=== PATIENT | female | born 1945 | race Caucasian/White ===

== ENCOUNTER → 2016-11-24 | Outpatient (CLI) | payer OTHER ==
[~2016-11-24] MED LIST: AMT100 PO; CHOL2000 PO; CYAN3INJ IM; DICL1GEL12 TOP; DRGTP12 TD; DRGTP25 TD; DXY100 PO; FERR1TAB13 PO; GLC/500 PO; GLIP2.5T11 PO; HYDR-5688 PO; LEVO25TA PO; MRLP17X PO; POTA10CA28 PO; POTA99TA PO; PRED20TA PO; PRLSR20 PO; TRAM-10 PO
[2016-11-24 17:35] LABS: BASO % 0.3 %; BASO ABS # 0.02 K/uL (0-0.2); COMPLETE YES; EOS % 4.1 %; HEMATOCRIT 33.7 % (37-47); IG% 0.3 %; LYMPH ABS # 2.06 K/uL (1.2-3.4); MEAN CELL VOLUME 88.2 fL (80-100); MEAN CORPUSCULAR HEMOGLOBIN 27.7 pg (25-34); MEAN CORPUSCULAR HGB CONC 31.5 g/dl (32-36); MEAN PLATELET VOLUME 10.2 fL (7.4-10.4); MONO % 4.2 %; NEUT % 62.1 %; PLATELET COUNT 262 K/uL (130-400); RED BLOOD COUNT 3.82 M/uL (4.2-5.4); URINE APPEARANCE CLOUDY (CLEAR); URINE BILIRUBIN NEG (NEG); URINE COLOR YELLOW; URINE NITRITE POS (NEG); URINE PH 5.5 (4.5-7.5); UROBILINOGEN NEG (NEG); WHITE BLOOD COUNT 7.11 K/uL (4.8-10.8); ZZUR CULT IF INDIC CLEAN CATCH YES
[2016-11-24 17:40] LABS: MANUAL MICROSCOPIC REQUIRED? NO; REVIEW REQ? NO
--- NOTE | 2016-11-24 17:40 | DIAGNOSTIC IMAGING REPORT ---
TWO VIEW CHEST CLINICAL HISTORY: Thoracic back pain. FINDINGS: PA and lateral chest radiographs are compared to chest x-ray and chest CT dated 06/20/2013. The heart is enlarged. The pulmonary vasculature is noncongested. Chronic interstitial thickening is similar to previous. No airspace consolidation, large pleural effusion, or pneumothorax is seen. The skeletal structures are osteopenic. Degenerative change is noted in the thoracic spine. IMPRESSION: Cardiomegaly with no active disease in the chest. Electronically signed by: Lencho Jean M.D. 11/24/2016 5:39 PM Dictated Date/Time: 11/24/2016 5:37 PM
--- NOTE | 2016-11-24 17:43 | DIAGNOSTIC IMAGING REPORT ---
THORACIC SPINE 3 VIEWS ROUTINE HISTORY: Pain M54.9 Mid back pain COMPARISON: None. FINDINGS: There is no fracture. Mild compression deformity T6 considered nonacute radiographically. Degenerative disc change throughout. Moderate reactive osteophytic change throughout. Disc spaces are preserved. IMPRESSION: Subacute to acute compression deformity considered no more than 20% superior endplate of T6. Scoliosis. Considerable degenerative disc change throughout. The above report was generated using voice recognition software. It may contain grammatical, syntax or spelling errors. Electronically signed by: Roger Allen M.D. 11/24/2016 5:42 PM Dictated Date/Time: 11/24/2016 5:38 PM
[2016-11-24 17:57] LABS: ALT/SGPT 17 U/L (12-78); BLOOD UREA NITROGEN 23 mg/dl (7-18); BUN/CREATININE RATIO 15.1 (10-20); CALCIUM 9.5 mg/dl (8.5-10.1); CARBON DIOXIDE 31 mmol/L (21-32); CHLORIDE 103 mmol/L (98-107); GLUCOSE 91 mg/dl (70-99); POTASSIUM 3.8 mmol/L (3.5-5.1); SODIUM 140 mmol/L (136-145)
[2016-11-24 18:00] LABS: ALB/GLOB RATIO 0.9 (0.9-2); ALKALINE PHOSPHATASE 143 U/L (45-117); AST/SGOT 22 U/L (15-37)
[2016-11-25 06:37] LABS: ESTIMATED AVERAGE GLUCOSE 123 mg/dl; HA1C FLAG Normal (Normal)
== END | disposition home or self-care (01) ==
LOC: C.RAD 16:50
PROVIDERS: ATTEND Nurse Practitioner
DX: M54.9 Dorsalgia, unspecified (principal); D51.0 Vitamin B12 deficiency anemia due to intrinsic factor deficiency; I51.7 Cardiomegaly; E11.9 Type 2 diabetes mellitus without complications; D50.9 Iron deficiency anemia, unspecified; M41.9 Scoliosis, unspecified

== ENCOUNTER 2016-12-14 14:42 | Emergency (ER) | payer OTHER ==
[~2016-12-14] VITALS: Ht 170.2 cm; Wt 92.7 kg
[~2016-12-14 14:42] MED LIST changes: -CHOL2000 PO; -DICL1GEL12 TOP; -DRGTP12 TD; -DRGTP25 TD; -DXY100 PO; -FERR1TAB13 PO; -GLIP2.5T11 PO; -HYDR-5688 PO; -MRLP17X PO; -POTA99TA PO; -PRED20TA PO; -TRAM-10 PO
[2016-12-14 14:51] VITALS: TEMP 36.7
[2016-12-14 15:02] VITALS: Ht 170.2 cm; Wt 92.7 kg
[2016-12-14] MEDS ORDERED: SODIUM CHLORIDE 0.9% 1000ML 1,000 ML IV SCH (15:07)
[2016-12-14 15:21] LABS: BASO % 0.3 %; BASO ABS # 0.02 K/uL (0-0.2); COMPLETE YES; EOS % 9.1 %; HEMATOCRIT 34.2 % (37-47); IG% 0.2 %; LYMPH % 19.5 %; LYMPH ABS # 1.27 K/uL (1.2-3.4); MEAN CELL VOLUME 85.9 fL (80-100); MEAN CORPUSCULAR HEMOGLOBIN 27.1 pg (25-34); MEAN CORPUSCULAR HGB CONC 31.6 g/dl (32-36); MEAN PLATELET VOLUME 9.8 fL (7.4-10.4); MONO % 5.4 %; NEUT % 65.5 %; PLATELET COUNT 266 K/uL (130-400); RED BLOOD COUNT 3.98 M/uL (4.2-5.4)
[2016-12-14 15:29] LABS: PROTHROMBIN TIME (PATIENT) 10.8 SECONDS (9.0-12.0)
[2016-12-14 15:38] LABS: BLOOD UREA NITROGEN 14 mg/dl (7-18); BUN/CREATININE RATIO 10.7 (10-20); CALCIUM 9.3 mg/dl (8.5-10.1); CARBON DIOXIDE 31 mmol/L (21-32); CHLORIDE 102 mmol/L (98-107); GLUCOSE 129 mg/dl (70-99); POTASSIUM 3.5 mmol/L (3.5-5.1); SODIUM 138 mmol/L (136-145)
[2016-12-14] MEDS ORDERED: POTA99TA PO (15:43)
[2016-12-14] MEDS ORDERED: GLIP2.5T11 PO (15:43)
[2016-12-14] MEDS ORDERED: TRAM-10 PO (15:43)
[2016-12-14] MEDS ORDERED: AMT100 PO (15:43)
[2016-12-14] MEDS ORDERED: DICL1GEL12 TOP (15:43)
[2016-12-14] MEDS ORDERED: CHOL2000 PO (15:43)
[2016-12-14] MEDS ORDERED: FERR1TAB13 PO (15:43)
--- NOTE | 2016-12-14 15:55 | DIAGNOSTIC IMAGING REPORT ---
CT SCAN OF THE BRAIN WITHOUT IV CONTRAST CLINICAL HISTORY: Strokelike symptoms. COMPARISON STUDY: MRI of the brain dated 02/27/2011. TECHNIQUE: Unenhanced axial CT scan of the brain is performed from the vertex to the skull base. CT DOSE: 601.98 mGy.cm FINDINGS: Brain parenchyma: There are age-related involutional changes noting mild subcortical and periventricular microangiopathic change. There is a 9 mm focus of low-attenuation in the anterior limb of left internal capsule seen on image #13 consistent with an age indeterminant lacunar infarct. There is no hemorrhage, mass effect, or evidence of acute territorial ischemia by CT criteria. Galvin-white matter is preserved. No extra-axial fluid collection is seen. Ventricles, sulci, cisterns: Prominent secondary to involutional change. Intracranial vasculature: There is atherosclerotic calcification of the cavernous carotid arteries. Calvarium: Unremarkable. Sinuses and mastoids: The visualized paranasal sinuses are clear. The mastoid air cells are well pneumatized. Orbits: The bony orbits are grossly intact. IMPRESSION: 1. There is no hemorrhage, mass effect, or evidence of acute territorial ischemia by CT criteria. 2. There is a 9 mm age indeterminant lacunar infarct in the anterior limb of the left internal capsule. Electronically signed by: Lencho Jean M.D. 12/14/2016 3:53 PM Dictated Date/Time: 12/14/2016 3:51 PM
[2016-12-14 16:33] LABS: LYME DISEASE AB IGG POS (NEG); LYME DISEASE AB IGM EQUIVOCAL (NEG)
[2016-12-14] MEDS ORDERED: DOXYCYCLINE HYCLATE 100 MG CAP PO ONE (18:00)
[2016-12-14] MEDS ORDERED: PRED20TA PO (18:13)
[2016-12-14] MEDS ORDERED: DXY100 PO (18:13)
[2016-12-14] MEDS ORDERED: ARTIFICIAL TEARS OP OINT 3.5 GM TUBE OP ONE (18:15)
[2016-12-14 18:30] VITALS: BP 133/92; PULSE 97; O2SAT 97
--- NOTE | 2016-12-14 19:55 | EMERGENCY ROOM VISIT NOTE ---
History Report prepared by Richelle: Jesse Lopez Under the Supervision of: Dr. Gutierrez Fraga M.D. First contact with patient: 14:56 Chief Complaint: STROKE SYMPTOMS Stated Complaint: EYE/MOUTH DROOPING, EAR PAIN-SPOKE W/'S OFFICE History of Present Illness The patient is a 71 year old female who presents to the Emergency Room with complaints of worsening neurologic symptoms. Her symptoms include left sided facial droop, and resolved headache. The patient states that she noticed her symptoms last night when she was unable to close her left eye. She states that she noticed her facial droop today about 2 hours ago. She also complains of a tingling in her right arm which began last night. The patient has a history of chronic back pain, and feels that the tingling is related to this. Pt denies LOC , problems with speech, fevers, chills, visual changes, neck pain/stiffness, thunder clap or sudden onset of headache, carbon monoxide exposure, ear problems /hearing loss, sinus congestion/recent infection, chest pain, breathing difficulties, vomiting, abdominal pain, urinary symptoms, numbness, weakness, lymphadenopathy, rash, or other complaints. She has a history of MS and follows up with her PCP for this. The patient's daughter states that she did not notice facial droop yesterday, and didn't notice it today until she was told to look for it. The patient notes that she has a dog, but denies any known tick or bug bites. Source of History: patient Onset: Last night Position: other (left side) Quality: other (neurologic symptoms) Timing: worsening Associated Symptoms: + headache (resolved) Note: Additional symptoms: left sided facial droop, right arm tingling. Review of Systems See HPI for pertinent positives and negatives. A total of ten systems were reviewed and were otherwise negative. Past Medical & Surgical Medical Problems: (1) Anemia (2) Breast cancer (3) Diabetes (4) GERD (gastroesophageal reflux disease) (5) Hypothyroidism (6) Multiple sclerosis Surgical Problems: (1) S/P cholecystectomy (2) S/P hysterectomy (3) S/P mastectomy, bilateral Family History Diabetes mellitus Hypertension Kidney disease Kidney stones Social History Smoking Status: Never Smoker Alcohol Use: none Marital Status: Housing Status: lives with family Occupation Status: retired Current/Historical Medications Scheduled Amitriptyline HCl (Amitriptyline HCl), 100 MG PO HS Cholecalciferol (Vitamin D3), 1 CAP PO DAILY Doxycycline Hyclate (Doxycycline Hyclate), 100 MG PO BID Ferrous Sulfate (Kp Ferrous Sulfate), 1 TAB PO 3XWK Glipizide (Glipizide Er), 1 TAB PO DAILY Levothyroxine Sodium (Synthroid), 25 MCG PO DAILY Metformin Hcl (Glucophage), 500 MG PO BID Omeprazole (Prilosec), 20 MG PO DAILY Potassium (Potassium), 99 MG PO DAILY Prednisone (Prednisone), 0 PO DAILY Scheduled PRN Diclofenac Sodium (Topical) (Voltaren 1% Top Gel), 1 APPLN TOP UD PRN for Pain Tramadol (Ultram), 50-100 MG PO Q8H PRN for Pain Allergies Coded Allergies: Adhesives (Verified Allergy, Mild, 12/14/16) Aloe (Verified Allergy, Mild, 12/14/16) Aspirin (Verified Allergy, Mild, 12/14/16) Latex1 -Allergic Contact Dermititis (Verified Allergy, Unknown, RASH, 12/14) Physical Exam Vital Signs Date Time Temp Pulse Resp B/P (MAP) Pulse Ox O2 Delivery O2 Flow Rate FiO2 12/14/16 18:30 97 16 133/92 97 12/14/16 18:15 97 16 133/92 97 Room Air 12/14/16 17:43 99 16 171/96 99 Room Air 12/14/16 16:16 92 16 135/80 92 Room Air 12/14/16 15:55 99 16 131/81 94 Room Air 12/14/16 15:07 114 12/14/16 15:02 Room Air 12/14/16 14:51 36.7 122 16 135/82 97 Physical Exam GENERAL: Awake, alert, well appearing, no distress HENT: Normocephalic, atraumatic. TM's normal. Oropharynx unremarkable. EYES: PERRL. EOMI. Normal conjunctiva. Sclera non-icteric. NECK: Supple. No nuchal rigidity. FROM. No JVD or bruit. RESPIRATORY: CTA CARDIAC: RRR. No murmur. ABDOMEN: Soft, non distended. No tenderness to palpation. No rebound or guarding. No masses. RECTAL: Deferred. MUSCULOSKELETAL: Unremarkable. No edema. No discoloration. Gross motor strength symmetric. NEURO: Cranial nerves 2-12 grossly intact except for weakness of the left facial groove, including the forehead. Normal sensorium. No sensory or motor deficits noted. Speech normal. No pronator drift. SKIN: No rash or jaundice noted. LYMPH: No adenopathy. Medical Decision & Procedures ER Provider Diagnostic Interpretation: CT: Radiology results as stated below per my review and radiologist interpretation CT SCAN OF THE BRAIN WITHOUT IV CONTRAST FINDINGS: Brain parenchyma: There are age-related involutional changes noting mild subcortical and periventricular microangiopathic change. There is a 9 mm focus of low-attenuation in the anterior limb of left internal capsule seen on image #13 consistent with an age indeterminant lacunar infarct. There is no hemorrhage, mass effect, or evidence of acute territorial ischemia by CT criteria. Galvin-white matter is preserved. No extra-axial fluid collection is seen. Ventricles, sulci, cisterns: Prominent secondary to involutional change. Intracranial vasculature: There is atherosclerotic calcification of the cavernous carotid arteries. Calvarium: Unremarkable. Sinuses and mastoids: The visualized paranasal sinuses are clear. The mastoid air cells are well pneumatized. Orbits: The bony orbits are grossly intact. IMPRESSION: 1. There is no hemorrhage, mass effect, or evidence of acute territorial ischemia by CT criteria. 2. There is a 9 mm age indeterminant lacunar infarct in the anterior limb of the left internal capsule. Electronically signed by: Lencho Jean M.D. Laboratory Results 12/14/16 15:05 Red Blood Count 3.98, Mean Corpuscular Volume 85.9, Mean Corpuscular Hemoglobin 27.1, Mean Corpuscular Hemoglobin Concent 31.6, Mean Platelet Volume 9.8, Neutrophils (%) (Auto) 65.5, Lymphocytes (%) (Auto) 19.5, Monocytes (%) (Auto) 5.4, Eosinophils (%) (Auto) 9.1, Basophils (%) (Auto) 0.3, Neutrophils # (Auto) 4.26, Lymphocytes # (Auto) 1.27, Monocytes # (Auto) 0.35, Eosinophils # (Auto) 0.59, Basophils # (Auto) 0.02 12/14/16 15:05 Test 12/14/16 15:05 8/20/17 15:21 12/14/16 15:23 White Blood Count 6.50 K/uL (4.8-10.8) Red Blood Count 3.98 M/uL (4.2-5.4) Hemoglobin 10.8 g/dL (12.0-16.0) Hematocrit 34.2 % (37-47) Mean Corpuscular Volume 85.9 fL (80-100) Mean Corpuscular Hemoglobin 27.1 pg (25-34) Mean Corpuscular Hemoglobin Concent 31.6 g/dl (32-36) Platelet Count 266 K/uL (130-400) Mean Platelet Volume 9.8 fL (7.4-10.4) Neutrophils (%) (Auto) 65.5 % Lymphocytes (%) (Auto) 19.5 % Monocytes (%) (Auto) 5.4 % Eosinophils (%) (Auto) 9.1 % Basophils (%) (Auto) 0.3 % Neutrophils # (Auto) 4.26 K/uL (1.4-6.5) Lymphocytes # (Auto) 1.27 K/uL (1.2-3.4) Monocytes # (Auto) 0.35 K/uL (0.11-0.59) Eosinophils # (Auto) 0.59 K/uL (0-0.5) Basophils # (Auto) 0.02 K/uL (0-0.2) RDW Standard Deviation 47.4 fL (36.4-46.3) RDW Coefficient of Variation 15.2 % (11.5-14.5) Immature Granulocyte % (Auto) 0.2 % Immature Granulocyte # (Auto) 0.01 K/uL (0.00-0.02) Prothrombin Time 10.8 SECONDS (9.0-12.0) Prothromb Time International Ratio 1.0 (0.9-1.1) Activated Partial Thromboplast Time 26.8 SECONDS (21.0-31.0) Partial Thromboplastin Ratio 1.0 Anion Gap 5.0 mmol/L (3-11) Est Creatinine Clear Calc Drug Dose 45.7 ml/min Estimated GFR () 47.5 Estimated GFR (Non- 41.0 BUN/Creatinine Ratio 10.7 (10-20) Calcium Level 9.3 mg/dl (8.5-10.1) Total Creatine Kinase 57 U/L (26-192) Creatine Kinase MB < 0.5 ng/ml (0.5-3.6) Creatine Kinase MB Ratio (0-3.0) Troponin I < 0.015 ng/ml (0-0.045) Lyme Disease IgG Antibody POS (NEG) Bedside Prothrombin Time INR 1.1 (0.9-1.1) Bedside Glucose 120 mg/dl (70-90) Laboratory results reviewed by me Medications Administered Medications (Trade) Dose Ordered Sig/Abdirahman Route Start Time Stop Time Status Last Admin Dose Admin Sodium Chloride 1,000 ml @ 50 mls/hr Q20H IV 12/14/16 15:07 12/14/16 19:13 DC 12/14/16 16:15 50 MLS/HR Doxycycline Hyclate (Vibramycin Cap) 200 mg ONE ONCE PO 12/14/16 18:00 12/14/16 18:03 DC 12/14/16 18:15 200 MG Prednisone (PredniSONE TAB) 60 mg NOW STAT PO 12/14/16 17:59 12/14/16 18:03 DC 12/14/16 18:16 60 MG Artificial Tears (Lacri-Lube Oph Oint) 1 appln NOW ONCE OP 12/14/16 18:15 12/14/16 18:16 DC 12/14/16 18:16 1 APPLN ECG Indication: other (neurologic symptoms) Rate (beats per minute): 107 Rhythm: sinus tachycardia Findings: Q waves (Septal), no acute ischemic change, no ectopy, other (LVH. ) ED Course 1501: The patient was evaluated in room A9B. A complete history and physical exam was performed. 1507: Ordered Sodium Chloride 1000 ml @ 50 mls/hr IV. 1759: Ordered Prednisone Tab 60 mg PO, Vibramycin Cap 200 mg PO. 1815: Ordered Lacri-Lube Oph Oint 1 appln OP. 1820: I reevaluated the patient. Discussed results and discharge instructions: she verbalized understanding and agreement. The patient is ready for discharge. Medical Decision Triage Nursing notes reviewed. The patient's presentation and history were concerning for facial droop. Etiologies such as CVA, Green's palsy, TIA metabolic, infection, hypo/ hyperglycemia, electrolyte abnormalities, cardiac sources, intracerebral event, toxicologic, neurologic, as well as others were entertained. The patient was evaluated. Her physical examination revealed findings consistent with Green's palsy as she had weakness of her facial muscles on the left, including the forehead. She had no other focal neurologic findings. Given her age and other comorbidities she underwent CT imaging as well as blood work. The patient was found to have an age-indeterminate lacunar infarct on the left. She does not have any findings neurologically consistent with this and this would not explain the peripheral facial nerve findings. The patient had unremarkable blood work except she was found to have a positive Lyme IgM and IgG. This is concerning for Lyme causing the Green's palsy. The patient was started on prednisone and doxycycline. She is diabetic and unfortunately will need prednisone in order to hasten the resolution of her symptoms. She was also given Lacri-Lube. I had a long discussion about the medications. The patient will watch her diet closely and check her sugar frequently. She will need close follow-up in the primary office and she has an appointment scheduled this week already. She will be on a medium prednisone taper and doxycycline for 21 days. If she worsens in any way she will be back to the emergency department for reevaluation. I did discuss the case with neurology, Dr. Carrillo and he was in agreement with treatment and follow-up recommendations. I gave my usual and customary discussion regarding this issue. By the evaluation outlined above other emergent etiologies such as those listed in the differential, as well as others, were deemed relatively unlikely. The patient was educated about the findings as listed above. All questions were answered and the patient was pleased with the treatment. Return instructions were outlined and the patient was discharged in stable condition. The patient was referred to her PCP for follow-up for a recheck of the current condition. Consults Time Called: 1715 Consulting Physician: Dr. Carrillo -Neurology Returned Call: [phone] Discussed the patient's case. Dr. Carrillo recommends treating the patient for Green 's Palsy. Impression Primary Impression: Green's palsy Scribe Attestation The scribe's documentation has been prepared under my direction and personally reviewed by me in its entirety. I confirm that the note above accurately reflects all work, treatment, procedures, and medical decision making performed by me. Departure Information Dispostion Home / Self-Care Prescriptions Doxycycline Hyclate (Doxycycline Hyclate) 100 Mg Cap 100 MG PO BID for 21 Days, #42 CAP Prov: Gutierrez Fraga MD 12/14/16 Prednisone (Prednisone) 20 Mg Tab 0 PO DAILY, #19 TAB 3 DAILY FOR 4 DAYS, THEN 2 DAILY FOR 2 DAYS, THEN 1 DAILY FOR 2 DAYS, THEN 1/2 FOR 2 DAYS. Prov: Gutierrez Fraga MD 12/14/16 Referrals Wendy Chaves C.R.N.PMarshal (PCP) Forms HOME CARE DOCUMENTATION FORM, IMPORTANT VISIT INFORMATION Patient Instructions [facility] Pals[facility], [facility] Additional Instructions Prednisone taper of 20 mg tablets: 3 DAILY FOR 4 DAYS, THEN 2 DAILY FOR 2 DAYS, THEN 1 DAILY FOR 2 DAYS, THEN 1/2 TAB FOR 2 DAYS. Watch intake of sugar and several carbohydrates as prednisone may increase blood glucose. Check her blood glucose frequently. Follow-up closely with your primary doctor. Doxycycline 100mg: Take one pill twice daily for 21 days for your Lyme infection. Take with food, but avoid dairy. Avoid prolonged sun exposure since this medication makes you temporarily more susceptible to sunburns. All antibiotics can cause diarrhea. If this occurs and you feel worse or it does not resolve in 1-2 days follow up with your doctor or return to the Emergency Department as this could be signs of serious underlying problems. Any medication can cause an allergic reaction, stop the pills immediately and return to the ER for rash, hives, breathing difficulties, or swelling. Tylenol: Take 1000 mg every 6 hours as needed for pain. Do not take more than 3000 mg in a 24 hour period. Rest and drink plenty of fluids Follow-up with her primary physician this week for a recheck of the current condition and blood pressure. Return to the ER for headache, passing out, difficulty breathing, fevers, numbness, tingling, worsening of your condition, or as needed.
[2016-12-18 08:36] LABS: 18KDIGG BAND NONREACTIVE (NONREACTIVE); 23KDIGG BAND NONREACTIVE (NONREACTIVE); 23KDIGM BAND REACTIVE (NONREACTIVE); 28KDIGG BAND NONREACTIVE (NONREACTIVE); 30KDIGG BAND NONREACTIVE (NONREACTIVE); 39KDIGG BAND NONREACTIVE (NONREACTIVE); 39KDIGM BAND NONREACTIVE (NONREACTIVE); 41KDIGG BAND REACTIVE (NONREACTIVE); 41KDIGM BAND NONREACTIVE (NONREACTIVE); 45KDIGG BAND NONREACTIVE (NONREACTIVE); 58KDIGG BAND NONREACTIVE (NONREACTIVE); 66KDIGG BAND REACTIVE (NONREACTIVE); 93KDIGG BAND NONREACTIVE (NONREACTIVE)
[2017-01-30] MEDS ORDERED: DRGTP25 TD (12:40)
[2017-01-30] MEDS ORDERED: HYDR-5688 PO (12:40)
[2017-01-30] MEDS ORDERED: DRGTP12 TD (12:40)
[2017-01-30] MEDS ORDERED: MRLP17X PO (12:40)
== END 2016-12-14 18:30 | disposition home or self-care (01) ==
LOC: C.EDB 14:44 → C.EDA 18:30
DX: G51.0 Bell's palsy (principal); G35 Multiple sclerosis; I63.9 Cerebral infarction, unspecified; D64.9 Anemia, unspecified; E11.9 Type 2 diabetes mellitus without complications; K21.9 Gastro-esophageal reflux disease without esophagitis; E03.9 Hypothyroidism, unspecified; Z85.3 Personal history of malignant neoplasm of breast; Z90.13 Acquired absence of bilateral breasts and nipples; Z90.710 Acquired absence of both cervix and uterus; Z79.84 Long term (current) use of oral hypoglycemic drugs; Z83.3 Family history of diabetes mellitus; Z82.49 Family history of ischemic heart disease and other diseases of the circulatory system; Z84.1 Family history of disorders of kidney and ureter

== ENCOUNTER → 2017-01-14 | Outpatient (CLI) | payer OTHER ==
[~2017-01-14] MED LIST changes: +CHOL2000 PO; -CYAN3INJ IM; +DICL1GEL12 TOP; +DRGTP12 TD; +DRGTP25 TD; +DXY100 PO; +FERR1TAB13 PO; +GLIP2.5T11 PO; +HYDR-5688 PO; +MRLP17X PO; -POTA10CA28 PO; +POTA99TA PO; +PRED20TA PO; +TRAM-10 PO
--- NOTE | 2017-01-14 12:16 | DIAGNOSTIC IMAGING REPORT ---
TWO VIEW CHEST CLINICAL HISTORY: Left-sided chest pain. No reported history of trauma. FINDINGS: PA and lateral chest radiographs are compared to study dated 11/24/2016 and correlated with chest CT dated 06/20/2013. The cardiomediastinal silhouette is unremarkable. There is a small right pleural effusion with associated atelectasis. Platelike atelectasis is seen in the left lung base. There is no pneumothorax. The skeletal structures are osteopenic. The bony thorax appears intact. Cholecystectomy clips are noted. IMPRESSION: 1. There is a small right pleural effusion, new from 11/24/2016. 2. Platelike atelectasis is present the left lung base. The left lung is otherwise clear. Electronically signed by: Lencho Jean M.D. 01/14/2017 12:14 PM Dictated Date/Time: 01/14/2017 12:13 PM
== END | disposition home or self-care (01) ==
LOC: C.RAD 11:13
PROVIDERS: ATTEND Internal Medicine
DX: R07.9 Chest pain, unspecified (principal)

== ENCOUNTER 2017-01-21 09:59 | Inpatient (IN) | payer OTHER ==
[~2017-01-21] VITALS: Ht 167.6 cm; Wt 90.4 kg
[~2017-01-21 09:59] MED LIST changes: -DRGTP12 TD; -DRGTP25 TD; -HYDR-5688 PO; -MRLP17X PO
[2017-01-21] MEDS ORDERED: SODIUM CHLORIDE 0.9% 1000ML 1,000 ML IV STA (11:04)
[2017-01-21] MEDS ORDERED: SODIUM CHLORIDE 0.9% 1000ML 250 ML IV STA (11:04)
[2017-01-21 11:34] LABS: MANUAL MICROSCOPIC REQUIRED? NO; REVIEW REQ? NO; URINE APPEARANCE CLEAR (CLEAR); URINE BILIRUBIN NEG (NEG); URINE COLOR YELLOW; URINE EPITHELIAL CELL AUTO 20-30 /lpf (0-5); URINE NITRITE NEG (NEG); URINE SPECIFIC GRAVITY 1.011 (1.000-1.030); UROBILINOGEN NEG (NEG)
[2017-01-21 11:42] LABS: POINT OF CARE TROPONIN I < 0.030 ng/ml (0-0.045)
--- NOTE | 2017-01-21 11:44 | DIAGNOSTIC IMAGING REPORT ---
CHEST ONE VIEW PORTABLE CLINICAL HISTORY: Atypical chest pain COMPARISON STUDY: 01/14/2017 FINDINGS: The cardiac and mediastinal contours remain stable. There is a persistent small right pleural effusion. There are developing right basal airspace opacities, atelectatic versus inflammatory. Clinical and radiographic follow-up is recommended. There are linear opacities the left lung base, similar to the prior study and consistent with subsegmental atelectasis.[ IMPRESSION: 1. Small right pleural effusion 2. Developing right basal airspace opacities, atelectatic versus inflammatory. Electronically signed by: Naman Bowie M.D. 01/21/2017 11:42 AM Dictated Date/Time: 01/21/2017 11:41 AM
[2017-01-21 11:46] LABS: BASO % 0.1 %; BASO ABS # 0.01 K/uL (0-0.2); COMPLETE YES; EOS % 2.2 %; HEMATOCRIT 33.4 % (37-47); IG% 0.4 %; LYMPH % 17.2 %; LYMPH ABS # 1.35 K/uL (1.2-3.4); MEAN CELL VOLUME 85.9 fL (80-100); MEAN CORPUSCULAR HEMOGLOBIN 27.2 pg (25-34); MEAN CORPUSCULAR HGB CONC 31.7 g/dl (32-36); MEAN PLATELET VOLUME 9.6 fL (7.4-10.4); MONO % 4.5 %; NEUT % 75.6 %; PLATELET COUNT 335 K/uL (130-400); RED BLOOD COUNT 3.89 M/uL (4.2-5.4); WHITE BLOOD COUNT 7.85 K/uL (4.8-10.8)
[2017-01-21 12:07] LABS: ALT/SGPT 22 U/L (12-78); BLOOD UREA NITROGEN 11 mg/dl (7-18); BUN/CREATININE RATIO 9.3 (10-20); CALCIUM 9.4 mg/dl (8.5-10.1); CARBON DIOXIDE 27 mmol/L (21-32); CHLORIDE 101 mmol/L (98-107); GLUCOSE 102 mg/dl (70-99); POTASSIUM 3.7 mmol/L (3.5-5.1); SODIUM 137 mmol/L (136-145)
[2017-01-21 12:12] LABS: ALKALINE PHOSPHATASE 143 U/L (45-117); AST/SGOT 22 U/L (15-37)
--- NOTE | 2017-01-21 12:37 | EMERGENCY ROOM VISIT NOTE ---
History Report prepared by Richelle: Angelita Boyd Under the Supervision of: Dr. Asher Rivera M.D. First contact with patient: 10:57 Chief Complaint: PAIN (GENERALIZED) Stated Complaint: PAIN History of Present Illness The patient is a 71 year old female who presents to the Emergency Room with complaints of worsening generalized pain for the past week. The patient was diagnosed with Lyme disease 1 month ago. She was given antibiotics and steroids for Green's palsy. She is no longer taking these medications. She states that she has had continued pain since her diagnosis one month ago. She is currently experiencing lower back pain and pain below her ribs. She rates her current pain as a 5/10. The patient reports shortness of breath that is worse with exertion and states, "it hurts to breathe." The patient denies headache, cough, nausea, vomiting, urinary symptoms, rash, pain or swelling in her legs, and any recent trauma or falls. She was evaluated by Dr. Silverio today. She was found to have low O2 saturation and was sent to the ED for a CT scan. Source of History: patient, family, treating provider Onset: 1 week ago Position: other (global) Symptom Intensity: 5/10 Timing: worsening Modifying Factors (Worsening): exertion Associated Symptoms: + SOB, + back pain, No headache, No cough, No nausea, No vomiting, No urinary symptoms, No rash Review of Systems See HPI for pertinent positives & negatives. A total of 10 systems reviewed and were otherwise negative. Past Medical & Surgical Medical Problems: (1) Anemia (2) Back pain (3) Breast cancer (4) Chest pain (5) Diabetes (6) GERD (gastroesophageal reflux disease) (7) Hypothyroidism (8) Multiple sclerosis Surgical Problems: (1) S/P cholecystectomy (2) S/P hysterectomy (3) S/P mastectomy, bilateral Old medical records were reviewed. Nurse's notes were reviewed and I agree with. Family History Diabetes mellitus Hypertension Kidney disease Kidney stones Social History Smoking Status: Former Smoker Alcohol Use: none Marital Status: Housing Status: lives with family Occupation Status: retired Current/Historical Medications Scheduled Amitriptyline HCl (Amitriptyline HCl), 100 MG PO HS Cholecalciferol (Vitamin D3), 1 CAP PO DAILY Ferrous Sulfate (Kp Ferrous Sulfate), 1 TAB PO 3XWK Glipizide (Glipizide Er), 1 TAB PO DAILY Levothyroxine Sodium (Synthroid), 25 MCG PO DAILY Metformin Hcl (Glucophage), 500 MG PO BID Omeprazole (Prilosec), 20 MG PO DAILY Potassium (Potassium), 99 MG PO DAILY Scheduled PRN Diclofenac Sodium (Topical) (Voltaren 1% Top Gel), 1 APPLN TOP UD PRN for Pain Tramadol (Ultram), 50-100 MG PO Q8H PRN for Pain Allergies Coded Allergies: Adhesives (Verified Allergy, Mild, 01/21/17) Aloe (Verified Allergy, Mild, 01/21/17) Aspirin (Verified Allergy, Mild, 01/21/17) Latex1 -Allergic Contact Dermititis (Verified Allergy, Unknown, RASH, 01/21) Physical Exam Vital Signs Date Time Temp Pulse Resp B/P (MAP) Pulse Ox O2 Delivery O2 Flow Rate FiO2 01/21/17 14:10 95 18 153/100 92 Room Air 01/21/17 12:16 100 18 147/90 93 Room Air 01/21/17 10:14 37.0 105 18 160/85 95 Room Air Physical Exam General: Well developed well nourished non ill appearing older female in no acute distress, breathing comfortably on room air. Normal speech HEENT: Normal cephalic atraumatic. Pupils are equal round and reactive to light. Extraocular movements are intact. Oropharynx is pink with moist mucous membranes. No swelling of the mouth lips or tongue. Neck: Supple with a midline trachea. No meningeal signs or stiffness, no JVD or bruits. No Stridor. Chest: Clear to auscultation bilaterally. Mildly tender in the lower ribs bilaterally. No wheezes or rhonchi. No increased work of breathing. Heart: regular rate and rhythm. Abdomen: Soft nontender, nondistended without rebound guarding or rigidity. Extremities: No cyanosis clubbing or edema. No calf tenderness or assymetry Spine/Back. Non tender to palpation. No CVA tenderness Skin: Good turgor without rashes. Neurologic exam: Cranial nerves two through 12 are intact. Motor and sensation are intact and symmetrical throughout. Medical Decision & Procedures ER Provider Diagnostic Interpretation: Radiology results as stated below per my review and radiologist interpretation: CHEST ONE VIEW PORTABLE CLINICAL HISTORY: Atypical chest pain COMPARISON STUDY: 01/14/2017 FINDINGS: The cardiac and mediastinal contours remain stable. There is a persistent small right pleural effusion. There are developing right basal airspace opacities, atelectatic versus inflammatory. Clinical and radiographic follow-up is recommended. There are linear opacities the left lung base, similar to the prior study and consistent with subsegmental atelectasis.[ IMPRESSION: 1. Small right pleural effusion 2. Developing right basal airspace opacities, atelectatic versus inflammatory. Electronically signed by: Naman Bowie M.D. 01/21/2017 11:42 AM Dictated Date/Time: 01/21/2017 11:41 AM (CHEST FOR PE) ANGIO WITH CT DOSE: 1290.59 mGycm HISTORY: 71 years-old Female presents with acute chest and upper abdominal pain. Concern for possible pulmonary embolus. TECHNIQUE: Multiple CTA images of the chest were obtained after the intravenous administration of 119 ml Optiray 320. Coronal and sagittal MIPS were obtained from the axial data set and were submitted for review. A dose lowering technique was utilized adhering to the principles of ALARA. COMPARISON: Chest radiograph of same day, thoracic spine radiographs 11/24/2016, CTA chest 06/20/2013 FINDINGS: CTA: Heart is mildly enlarged. There is mild mixed plaquing of the thoracic aorta without dissection or aneurysm identified. Imaged proximal great vessels appear patent. Pulmonary arterial tree is well-opacified to the level of the segmental branches and demonstrates no focal filling defects to suggest pulmonary thromboembolic disease. Subsegmental branches are not well opacified and are also partially secured by respiratory motion. CT CHEST: No dominant thyroid nodule identified. Mildly prominent right hilar lymph node measures up to 7 mm in short axis on image 128, unchanged. Precarinal lymph node measuring 9 mm in short axis is also unchanged. 8 mm AP window lymph node is also unchanged. No new adenopathy. There is a small right pleural effusion. Subsegmental bibasilar consolidative and groundglass opacities involving the lung bases suggest atelectasis. There is no pneumothorax. Mild paraseptal and is evidence changes involve all apices. Central airways are patent. 2.8 x 2.0 cm low attenuating lesion of the left hepatic lobe is again seen, unchanged suggesting cyst. No acute abnormality of the upper abdomen. Soft tissues are unremarkable. Prior bilateral mastectomy. Multiple lytic lesions throughout the vertebral bodies and bilateral ribs are noted, very suspicious for metastasis, new from prior chest CT. Compression deformity of the T6 vertebral body is again noted compatible with pathologic fracture. IMPRESSION: 1. Multiple destructive lytic lesions of the spine and multiple bilateral ribs are new from comparison chest CT 06/20/2013 and are most compatible with metastasis. 2. Compression deformity of the T6 vertebral body is again seen, unchanged from comparison radiograph dated 11/24/2016 compatible with pathologic fracture. 3. Small right pleural effusion with subsegmental bibasilar opacities suggesting atelectasis. 4. Mild adenopathy about the chest is unchanged from prior study suggesting reactive changes. 5. Low attenuating lesion of the left hepatic lobe, 2.8 cm is stable, likely reflecting a hepatic cyst. The above report was generated using voice recognition software. It may contain grammatical, syntax or spelling errors. Electronically signed by: Jus Burks M.D. 01/21/2017 1:26 PM Dictated Date/Time: 01/21/2017 1:[address] ABD/PELVIS IV CONTRAST ONLY CLINICAL HISTORY: Epigastric abdominal pain COMPARISON STUDY: September 2007 TECHNIQUE: Following the IV administration of 119 mL of Optiray-320, CT scan of the abdomen and pelvis was performed from the lung bases to the proximal femurs. Images are reviewed in the axial, sagittal, and coronal planes. IV contrast was administered without complication. A dose lowering technique was utilized adhering to the principles of ALARA. CT DOSE: FINDINGS: Lower chest: There is a small right pleural effusion. There are bibasal atelectatic changes. Liver: There is a stable 2.5 cm left lobe hepatic cyst. There is a 12 mm hypodensity within the left hepatic lobe posteriorly. This slightly exceeds water attenuation. This remains unchanged from 2008, and is almost certainly benign Gallbladder: Surgically absent Spleen: Normal in size and attenuation. Pancreas: Unremarkable. Adrenal glands: There is bilateral adrenal gland thickening Kidneys: No solid renal masses are visualized. There is a 7 mm left renal hypodensity, likely representing a cyst. There is no hydronephrosis. Bowel: There are no transition zones indicate bowel obstruction. There is no acute diverticulitis. The appendix is normal. There is scattered stool throughout the colon. Peritoneum: There is no intraperitoneal free air or abdominal ascites. Vasculature: The abdominal aorta is normal in course and caliber. Adenopathy: There are pericardial, para esophageal, and para-aortic lymph nodes are the upper limits of normal in size. An ovoid opacity adjacent the left internal iliac vessels, likely represents the patient's [place] left ovary. Pelvic viscera: The uterus is surgically absent Skeletal structures: There are multiple lytic bone lesions, consistent with metastatic disease or myeloma. IMPRESSION: 1. Extensive lytic bone disease, likely secondary to metastatic disease or myeloma. Further workup is advocated 2. No evidence of bowel obstruction. No evidence of free air. Normal appendix. 3. Small right pleural effusion 4. Scattered lymph nodes including the pericardial region, para esophageal region, and retroperitoneum at the upper limits of normal in size Electronically signed by: Naman Bowie M.D. 01/21/2017 1:37 PM Dictated Date/Time: 01/21/2017 1:21 PM Laboratory Results 01/21/17 11:16 Red Blood Count 3.89, Mean Corpuscular Volume 85.9, Mean Corpuscular Hemoglobin 27.2, Mean Corpuscular Hemoglobin Concent 31.7, Mean Platelet Volume 9.6, Neutrophils (%) (Auto) 75.6, Lymphocytes (%) (Auto) 17.2, Monocytes (%) (Auto) 4.5, Eosinophils (%) (Auto) 2.2, Basophils (%) (Auto) 0.1, Neutrophils # (Auto) 5.94, Lymphocytes # (Auto) 1.35, Monocytes # (Auto) 0.35, Eosinophils # (Auto) 0.17, Basophils # (Auto) 0.01 01/21/17 11:16 Test 01/21/17 11:16 01/21/17 11:22 White Blood Count 7.85 K/uL (4.8-10.8) Red Blood Count 3.89 M/uL (4.2-5.4) Hemoglobin 10.6 g/dL (12.0-16.0) Hematocrit 33.4 % (37-47) Mean Corpuscular Volume 85.9 fL (80-100) Mean Corpuscular Hemoglobin 27.2 pg (25-34) Mean Corpuscular Hemoglobin Concent 31.7 g/dl (32-36) Platelet Count 335 K/uL (130-400) Mean Platelet Volume 9.6 fL (7.4-10.4) Neutrophils (%) (Auto) 75.6 % Lymphocytes (%) (Auto) 17.2 % Monocytes (%) (Auto) 4.5 % Eosinophils (%) (Auto) 2.2 % Basophils (%) (Auto) 0.1 % Neutrophils # (Auto) 5.94 K/uL (1.4-6.5) Lymphocytes # (Auto) 1.35 K/uL (1.2-3.4) Monocytes # (Auto) 0.35 K/uL (0.11-0.59) Eosinophils # (Auto) 0.17 K/uL (0-0.5) Basophils # (Auto) 0.01 K/uL (0-0.2) RDW Standard Deviation 50.1 fL (36.4-46.3) RDW Coefficient of Variation 16.0 % (11.5-14.5) Immature Granulocyte % (Auto) 0.4 % Immature Granulocyte # (Auto) 0.03 K/uL (0.00-0.02) Urine Color YELLOW Urine Appearance CLEAR (CLEAR) Urine pH 6.0 (4.5-7.5) Urine Specific [place] 1.011 (1.000-1.030) Urine Protein NEG (NEG) Urine Glucose (UA) NEG (NEG) Urine Ketones NEG (NEG) Urine Occult Blood NEG (NEG) Urine Nitrite NEG (NEG) Urine Bilirubin NEG (NEG) Urine Urobilinogen NEG (NEG) Urine Leukocyte Esterase MODERATE (NEG) Urine WBC (Auto) 10-30 /hpf (0-5) Urine RBC (Auto) 0-4 /hpf (0-4) Urine Hyaline Casts (Auto) 1-5 /lpf (0-5) Urine Epithelial Cells (Auto) 20-30 /lpf (0-5) Urine Bacteria (Auto) NEG (NEG) Anion Gap 9.0 mmol/L (3-11) Est Creatinine Clear Calc Drug Dose 48.6 ml/min Estimated GFR () 52.3 Estimated GFR (Non- 45.1 BUN/Creatinine Ratio 9.3 (10-20) Calcium Level 9.4 mg/dl (8.5-10.1) Total Bilirubin 0.5 mg/dl (0.2-1) Direct Bilirubin 0.2 mg/dl (0-0.2) Aspartate Amino Transf (AST/SGOT) 22 U/L (15-37) Alanine Aminotransferase (ALT/SGPT) 22 U/L (12-78) Alkaline Phosphatase 143 U/L (45-117) Total Creatine Kinase 61 U/L (26-192) Creatine Kinase MB < 0.5 ng/ml (0.5-3.6) Creatine Kinase MB Ratio (0-3.0) Total Protein 7.7 gm/dl (6.4-8.2) Albumin 3.6 gm/dl (3.4-5.0) Lipase 112 U/L (73-393) Bedside D-Dimer > 450 ng/mlFEU (0-450) Bedside Troponin I < 0.030 ng/ml (0-0.045) Laboratory studies as stated above per my review. Medications Administered Medications (Trade) Dose Ordered Sig/Abdirahman Route Start Time Stop Time Status Last Admin Dose Admin Sodium Chloride 250 ml @ 999 mls/hr Q16M STAT IV 01/21/17 11:04 01/21/17 11:19 DC 01/21/17 11:23 999 MLS/HR Sodium Chloride 1,000 ml @ 100 mls/hr Q10H STAT IV 01/21/17 11:04 01/21/17 16:44 DC 01/21/17 11:23 100 MLS/HR Ondansetron HCl (Zofran Inj) 4 mg NOW STAT IV 01/21/17 14:42 01/21/17 14:44 DC 01/21/17 15:05 4 MG Morphine Sulfate (MoRPHine SULFATE INJ) 2 mg NOW STAT IV 01/21/17 14:42 01/21/17 14:44 DC 01/21/17 14:59 2 MG ECG Indication: chest pain Rate (beats per minute): 102 Rhythm: sinus tachycardia Findings: no acute ischemic change, no ectopy Comparison ECG Date: 12/14/16 Change: no significant change ED Course 1057: Past medical records reviewed. The patient was evaluated in room A3, and a complete history and physical examination were performed. 1104: NSS 1000 ml @ 100 mls/hr IV, NSS 250 ml @ 999 mls/hr IV 1441: I reassessed the patient at this time. She is still having pain. I discussed the results and treatment plan with the patient. I answered all pertaining questions that she had. She expressed understanding and verbalized agreement. 1442: Morphine sulfate 2 mg IV, Zofran 4 mg IV 1446: I spoke with Dr. Anaya. We discussed the patients case. [facility] Medical Decision Differential diagnoses includes PE, infection, pneumothorax, electrolyte or metabolic abnormality, gallbladder disease. This patient comes in as described above. She was sent over from her primary care physician's office. She's been having chest pain mostly on the right side but also previously on the left. She was treated about a month ago for Lyme disease. She appears well on exam. IV access established and multiple blood testing was obtained. She has no white count or fever to suggest infection. She does have some anemia. She's no acute electrolyte or metabolic abnormalities. EKG does not suggest acute coronary syndrome or arrhythmia. Her d-dimer was elevated. I did a CAT scan of her chest abdomen and pelvis. There is no evidence of PE. She has had multiple bony abnormalities and her ribs. She also has what appears to pathological old compression fracture. The differential diagnosis for these lesions are metastases versus multiple myeloma. She has taken pain medications prior to arrival and did not require any initially but while she was here she did agree require IV morphine and IV Zofran. I do think she needs to be admitted for further treatment and evaluation and diagnosis as there is concern for metastatic disease versus multiple myeloma. I have consulted Dr. Anaya who and she will be admitted for these measures. Medication Reconcilliation Current Medication List: was personally reviewed by me Blood Pressure Screening Patient's blood pressure: Elevated blood pressure Blood pressure disposition: Elevated BP felt to be situational Consults Time Called: 1444 Consulting Physician: Dr. Anaya Returned Call: [address] Anaya. We discussed the patients case. The patient will be evaluated by the [facility] for further management. 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 I confirm that the note above accurately reflects all work, treatment, procedures, and medical decision making performed by me. Departure Information Dispostion Being Evaluated By Hospitalist Referrals No Doctor, Assigned (PCP) Patient Instructions My [facility] Problem Qualifiers Primary Impression: Chest pain Chest pain type: unspecified Qualified Codes: R07.9 - Chest pain, unspecified
[2017-01-21] MEDS ORDERED: OPTIRAY 320 IV PRN (12:45)
--- NOTE | 2017-01-21 13:28 | DIAGNOSTIC IMAGING REPORT ---
(CHEST FOR PE) ANGIO WITH CT DOSE: 1290.59 mGycm HISTORY: 71 years-old Female presents with acute chest and upper abdominal pain. Concern for possible pulmonary embolus. TECHNIQUE: Multiple CTA images of the chest were obtained after the intravenous administration of 119 ml Optiray 320. Coronal and sagittal MIPS were obtained from the axial data set and were submitted for review. A dose lowering technique was utilized adhering to the principles of ALARA. COMPARISON: Chest radiograph of same day, thoracic spine radiographs 11/24/2016, CTA chest 06/20/2013 FINDINGS: CTA: Heart is mildly enlarged. There is mild mixed plaquing of the thoracic aorta without dissection or aneurysm identified. Imaged proximal great vessels appear patent. Pulmonary arterial tree is well-opacified to the level of the segmental branches and demonstrates no focal filling defects to suggest pulmonary thromboembolic disease. Subsegmental branches are not well opacified and are also partially secured by respiratory motion. CT CHEST: No dominant thyroid nodule identified. Mildly prominent right hilar lymph node measures up to 7 mm in short axis on image 128, unchanged. Precarinal lymph node measuring 9 mm in short axis is also unchanged. 8 mm AP window lymph node is also unchanged. No new adenopathy. There is a small right pleural effusion. Subsegmental bibasilar consolidative and groundglass opacities involving the lung bases suggest atelectasis. There is no pneumothorax. Mild paraseptal and is evidence changes involve all apices. Central airways are patent. 2.8 x 2.0 cm low attenuating lesion of the left hepatic lobe is again seen, unchanged suggesting cyst. No acute abnormality of the upper abdomen. Soft tissues are unremarkable. Prior bilateral mastectomy. Multiple lytic lesions throughout the vertebral bodies and bilateral ribs are noted, very suspicious for metastasis, new from prior chest CT. Compression deformity of the T6 vertebral body is again noted compatible with pathologic fracture. IMPRESSION: 1. Multiple destructive lytic lesions of the spine and multiple bilateral ribs are new from comparison chest CT 06/20/2013 and are most compatible with metastasis. 2. Compression deformity of the T6 vertebral body is again seen, unchanged from comparison radiograph dated 11/24/2016 compatible with pathologic fracture. 3. Small right pleural effusion with subsegmental bibasilar opacities suggesting atelectasis. 4. Mild adenopathy about the chest is unchanged from prior study suggesting reactive changes. 5. Low attenuating lesion of the left hepatic lobe, 2.8 cm is stable, likely reflecting a hepatic cyst. The above report was generated using voice recognition software. It may contain grammatical, syntax or spelling errors. Electronically signed by: Jus Burks M.D. 01/21/2017 1:26 PM Dictated Date/Time: 01/21/2017 1:15 PM
--- NOTE | 2017-01-21 13:38 | DIAGNOSTIC IMAGING REPORT ---
CT ABD/PELVIS IV CONTRAST ONLY CLINICAL HISTORY: Epigastric abdominal pain COMPARISON STUDY: September 2007 TECHNIQUE: Following the IV administration of 119 mL of Optiray-320, CT scan of the abdomen and pelvis was performed from the lung bases to the proximal femurs. Images are reviewed in the axial, sagittal, and coronal planes. IV contrast was administered without complication. A dose lowering technique was utilized adhering to the principles of ALARA. CT DOSE: FINDINGS: Lower chest: There is a small right pleural effusion. There are bibasal atelectatic changes. Liver: There is a stable 2.5 cm left lobe hepatic cyst. There is a 12 mm hypodensity within the left hepatic lobe posteriorly. This slightly exceeds water attenuation. This remains unchanged from 2008, and is almost certainly benign Gallbladder: Surgically absent Spleen: Normal in size and attenuation. Pancreas: Unremarkable. Adrenal glands: There is bilateral adrenal gland thickening Kidneys: No solid renal masses are visualized. There is a 7 mm left renal hypodensity, likely representing a cyst. There is no hydronephrosis. Bowel: There are no transition zones indicate bowel obstruction. There is no acute diverticulitis. The appendix is normal. There is scattered stool throughout the colon. Peritoneum: There is no intraperitoneal free air or abdominal ascites. Vasculature: The abdominal aorta is normal in course and caliber. Adenopathy: There are pericardial, para esophageal, and para-aortic lymph nodes are the upper limits of normal in size. An ovoid opacity adjacent the left internal iliac vessels, likely represents the patient's [place] left ovary. Pelvic viscera: The uterus is surgically absent Skeletal structures: There are multiple lytic bone lesions, consistent with metastatic disease or myeloma. IMPRESSION: 1. Extensive lytic bone disease, likely secondary to metastatic disease or myeloma. Further workup is advocated 2. No evidence of bowel obstruction. No evidence of free air. Normal appendix. 3. Small right pleural effusion 4. Scattered lymph nodes including the pericardial region, para esophageal region, and retroperitoneum at the upper limits of normal in size Electronically signed by: Naman Bowie M.D. 01/21/2017 1:37 PM Dictated Date/Time: 01/21/2017 1:21 PM
[2017-01-21] MEDS ORDERED: ONDANSETRON INJ 2 MG/ML 2 ML VIAL IV STA (14:42)
[2017-01-21] MEDS ORDERED: MoRPHine SULFATE 2 MG/ML CARP IV STA (14:42)
[2017-01-21] MEDS ORDERED: ACETAMINOPHEN 325 MG TAB PO PRN (15:30)
[2017-01-21] MEDS ORDERED: ONDANSETRON INJ 2 MG/ML 2 ML VIAL IV PRN (15:30)
[2017-01-21] MEDS ORDERED: ALUMINUM/MAGNESIUM/SIMETH (MAALOX MAX) 30 ML UDC PO PRN (15:30)
[2017-01-21] MEDS ORDERED: DICLOFENAC SOD 1% GEL 100 GM TUBE EXT PRN (15:30)
[2017-01-21] MEDS ORDERED: HYDROmorphone INJ 0.5 MG/0.5 ML SYR IV PRN (15:30)
[2017-01-21 16:55] VITALS: BP 163/102; PULSE 95; TEMP 36.5; O2SAT 93
[2017-01-21] MEDS ORDERED: GLUCAGON FOR INJ 1 MG VIAL SQ PRN (17:00)
[2017-01-21] MEDS ORDERED: DEXTROSE 50% 50 ML SYR IV PRN (17:00)
[2017-01-21] MEDS ORDERED: GLUCOSE 10 TABS/TUBE PO PRN (17:00)
[2017-01-21] MEDS ORDERED: GLUCOSE 40% GEL 15 GM TUBE PO PRN (17:00)
[2017-01-21 17:06] VITALS: Ht 167.6 cm; Wt 90.4 kg
--- NOTE | 2017-01-21 18:04 | HISTORY & PHYSICAL EXAMINATION ---
DATE OF ADMISSION: 01/21/2017 CHIEF COMPLAINT: Back pain, chest pain, and generalized pain. 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 The patient says her back pain started a couple months ago and at that time she has also had left facial droop and she was diagnosed with Green palsy and Lyme disease and she was given antibiotics and steroids .Than back pain seemed little bit better, but again got worse. With steroids she also developed some heartburn and she was placed on some acid reflux medication which helped her heartburn.Today she went to family doctor because of worsening back pain and chest pain below the lower part of her left ribs and also abdominal discomfort and she also found to have some pleural effusion and she was sent here for possible PE. CT angiogram of the chest was done which was negative for PE but showed multiple bony lesions, multiple destructive lesions of the spine and in the multiple bilateral ribs and they are new from _ CT scan from 2013 compatible with metastasis, there are also compression deformity of T6 vertebral body, which again seen unchanged from the October 2016 and is comparable with pathological fracture and we were called for admission. The patient currently resting comfortably, hemodynamically stable. She says lately she will get short of short of breath with some exertion, had chest pain in the lower part of the ribcage and back pain and some abdominal discomfort. Denies any headaches, no blurred vision, no dizziness, no sore throat, some nausea but no vomiting, no constipation or diarrhea. Normal bladder movements. No blood in the urine or blood in the stools. No rash, no swelling in the legs. Appetite is poor lately, but is able to ambulate in the house is okay for short distances, lives with her granddaughter and she denies any cough or any fever or chills. ALLERGIES: ADHESIVE TAPES ASPIRIN, CEPHALEXIN. MEDICATIONS: The patient is on glipizide 2.5 mg p.o. daily, metformin 500 mg p.o. b.i.d., amitriptyline 100 mg p.o. at bedtime, vitamin D 2000 units p.o. daily, ferrous sulfate 325 mg p.o. 3 times a week, levothyroxine 25 mcg p.o. daily, omeprazole 20 mg p.o. daily, potassium 99 mg p.o. daily, and tramadol 50 mg p.o. q. 8 hours p.r.n. PAST MEDICAL HISTORY: As mentioned above. PAST SURGICAL HISTORY: Bilateral mastectomy, laparoscopic cholecystectomy, and total hysterectomy. FAMILY HISTORY: Father had a stroke and heart disorder; brother has heart disorder; maternal aunts with cancer. SOCIAL HISTORY: Smokes quarter pack for 20 years. No alcohol use. No drug use. REVIEW OF SYMPTOMS: As per HPI. PHYSICAL EXAMINATION: GENERAL: The patient is obese, not in distress. VITAL SIGNS: Temperature 37, pulse of 95, respiratory rate 18, blood pressure 150/100, oxygen 92%. HEENT: No pallor, no icterus. Pupils equal, round, and reactive to light. Oral mucosa dry. NECK: No JVD, no neck masses, no carotid bruits. Supple. CARDIOVASCULAR: S1, S2 heard; regular rate and rhythm, no murmur, no gallop. RESPIRATORY SYSTEM: Normal AP diameter. No accessory muscle use. No wheezing, no crackles. ABDOMEN: Soft, bowel sounds present, mild discomfort in the right lower quadrant. No guarding, no rigidity, no distention. CENTRAL NERVOUS SYSTEM: Cranial nerves II-XII grossly intact. Nonfocal. MUSCULOSKELETAL: No spinal tenderness seen. EXTREMITIES: No edema, no erythema. LABORATORY DATA: WBC 7.8, hemoglobin 10.6, hematocrit 33.4, platelets 335. Sodium 137, potassium 3.7, chloride 101, bicarbonate 27, BUN 11, creatinine 1.2, serum glucose 102, calcium 9.4. Total bilirubin 0.5, direct bilirubin 0.2, AST 22, ALT 22, alkaline phosphatase 143, total creatinine kinase 61. Troponin I less than 0.03. Lipase 112, D-dimer greater than 450. Urinalysis - moderate for leukocyte esterase. IMAGING DATA: Chest x-ray: Small right pleural effusion, developing right basilar airspace opacities, atelectasis versus inflammatory. CT of the chest demonstrates multiple destructive lesions of the spine and multiple bilateral ribs, new compared to CT chest of 2013 and most compatible with metastasis, compression deformity of the T6 vertebral body, unchanged from the radiograph dated October 2016 with pathological fracture, small right pleural effusion with subsegmental bibasilar opacities suggesting atelectasis, mild adenopathy in the chest unchanged from prior studies, suggesting reactive changes, 2.8cm hepatic lobe lesion, likely hepatic cyst. CT of the abdomen and pelvis shows extensive bony lesions likely secondary to metastatic disease or myeloma. Further workup was advocated, scattered lymph nodes at the upper limits of normal in size. EKG - sinus tachycardia at a rate of 102. No acute ST changes seen, no significant change was found from previous EKG. ASSESSMENT AND PLAN: This 71-year-old female who presents with back pain and lower chest pain. 1. Back pain and lower chest pain CT scan of the chest and CT of the abdomen and pelvis shows multiple bony lesions,. Hx of breast cancer. We will admit to medical floor. Pain control, gentle fluids. We will consult hematology/oncology for further recommendations for workup. 2. Chest pain most likely from the above, but will rule out acute coronary syndrome with enzymes and echocardiogram. 3. History of diabetes, hold p.o. medications. We will place on insulin sliding scale, Lantus 5 units b.i.d., follow the hemoglobin A1c levels. 4. History of hypothyroidism. Continue Synthroid. 5. History of gastroesophageal reflux disease. Continue proton pump inhibitor. 6. History of breast cancer in 2003, status post bilateral mastectomy, not following with any doctor as she was told everything taken out. 7. Possible urinary tract infection. We will check the urine cultures. No antibiotics at this time. 8. Deep venous thrombosis prophylaxis, Lovenox. DISPOSITION: Admit to medical floor. Expect to discharge home and follow with family doctor. Level 1 full code. MTDD
[2017-01-21] MEDS: SODIUM CHLORIDE 0.9% 1000ML 1,000 ML IV SCH (18:13)
[2017-01-21] MEDS: INSULIN ASPART 100 UNITS/ML 3 ML PEN SC SCH ×2 (18:18→20:18)
[2017-01-21 20:04] VITALS: BP 149/81; PULSE 90; TEMP 36.7; O2SAT 91
[2017-01-21] MEDS: AMITRIPTYLINE HCL 100 MG TAB PO SCH (21:33)
[2017-01-21] MEDS: ENOXAPARIN 40 MG/0.4 ML SYR SQ SCH (21:33)
[2017-01-21] MEDS: INSULIN GLARGINE SOLOSTAR 100 UNITS/ML 3 ML PEN SC SCH (21:34)
[2017-01-21] MEDS: TRAMADOL HCL 50 MG TAB PO PRN (22:29)
[2017-01-22] VITALS (8 sets, daily range): BP systolic 149–169; BP diastolic 77–96; PULSE 65–103; TEMP 36.5–36.9; O2SAT 90–93
[2017-01-22] MEDS: SODIUM CHLORIDE 0.9% 1000ML 1,000 ML IV SCH ×2 (04:23→16:58)
[2017-01-22] MEDS: LEVOTHYROXINE 25 MCG TAB PO SCH (06:26)
[2017-01-22 06:34] LABS: BASO % 0.2 %; BASO ABS # 0.01 K/uL (0-0.2); COMPLETE YES; EOS % 4.4 %; HEMATOCRIT 31.8 % (37-47); IG% 0.2 %; LYMPH % 25.4 %; LYMPH ABS # 1.33 K/uL (1.2-3.4); MEAN CELL VOLUME 86.9 fL (80-100); MEAN CORPUSCULAR HEMOGLOBIN 26.2 pg (25-34); MEAN CORPUSCULAR HGB CONC 30.2 g/dl (32-36); MEAN PLATELET VOLUME 9.5 fL (7.4-10.4); MONO % 5.4 %; NEUT % 64.4 %; PLATELET COUNT 297 K/uL (130-400); RED BLOOD COUNT 3.66 M/uL (4.2-5.4); WHITE BLOOD COUNT 5.23 K/uL (4.8-10.8)
[2017-01-22 06:59] LABS: ESTIMATED AVERAGE GLUCOSE 126 mg/dl; HA1C FLAG Normal (Normal)
[2017-01-22 07:05] LABS: BLOOD UREA NITROGEN 12 mg/dl (7-18); BUN/CREATININE RATIO 9.5 (10-20); CALCIUM 8.7 mg/dl (8.5-10.1); CARBON DIOXIDE 26 mmol/L (21-32); CHLORIDE 105 mmol/L (98-107); GLUCOSE 81 mg/dl (70-99); MAGNESIUM 1.8 mg/dl (1.8-2.4); POTASSIUM 3.8 mmol/L (3.5-5.1); SODIUM 140 mmol/L (136-145)
[2017-01-22] MEDS ORDERED: NON-FORMULARY MEDICATION (Potassium 99 MG) PO SCH (08:00)
[2017-01-22] MEDS: PANTOprazole SOD 40 MG TAB PO SCH (08:17)
[2017-01-22] MEDS: TRAMADOL HCL 50 MG TAB PO PRN (08:18)
[2017-01-22] MEDS: CHOLECALCIFEROL 1000 INTER.UNIT TAB PO SCH (08:18)
[2017-01-22] MEDS: INSULIN ASPART 100 UNITS/ML 3 ML PEN SC SCH ×4 (08:27→20:42)
[2017-01-22] MEDS: INSULIN GLARGINE SOLOSTAR 100 UNITS/ML 3 ML PEN SC SCH ×2 (08:28→20:49)
--- NOTE | 2017-01-22 08:55 | Clinical Documentation Query ---
CLINICAL DOCUMENTATION QUERY 71 year old female who presents to the Emergency Room with complaints of worsening generalized pain and low O2 sats. Bone lesions are being diagnosed. This codes to "Disorder of bone and may not be the intended meaning of diagnosis. 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 Clinical Indicators: Chest CT showed multiple destructive lytic lesions of the spine and multiple bilateral ribs are new from comparison chest CT 06/20/2013 and are most compatible with metastasis. Unchanged T6 compression fracture and mild edenopathy. Treatment: IV Morphine, IV Dilaudid, Ultram, Oncology consult, Orthopedic consult. Risk Factors: Age, Breast CA, Please clarify and document your clinical opinion in the progress notes and discharge summary. Terms such as "probable", "suspected", "likely", "questionable", "possible", or "still to be ruled out" are acceptable. IF IN AGREEMENT, YOU MUST DOCUMENT ABOVE DIAGNOSTIC STATEMENT IN DAILY PROGRESS NOTES AND DISCHARGE SUMMARY. This document is not part of the patient's record. Thank You, Balaji Echavarria RN [phone]
[2017-01-22] MEDS ORDERED: LORAZEPAM 2 MG/ML 1 ML VIAL IV ONE (12:15)
[2017-01-22] MEDS: MoRPHine SULFATE 2 MG/ML CARP IV PRN ×2 (12:20→16:54)
--- NOTE | 2017-01-22 12:23 | Orthopedic Consultation ---
Orthopedic Consultation Date of Consultation: Jan 22, 2017. Attending Physician: Narcisa Reese DO Reason for Consultation: T6 compression fracture History of Present Illness This is a 71-year-old female that we are seeing consultation regards to an acute T6 compression fracture. Patient says states she received a Lyme's disease diagnosis about a month ago. She reports she has had back pain/ thoracic pain for a month or 2. It then worsened a week or 2 ago and radiated to just under her left breast. Rolling over or activity reproduces her pain. She is most comfortable inn a resting position. She does have a history of breast cancer 13 years ago treated with bilateral mastectomies. 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 Status: Acute (5) Pleural effusion, right Status: Acute Family History Diabetes mellitus Hypertension Kidney disease Kidney stones Social History Smoking Status: Former Smoker Marital Status: Housing Status: lives with family Occupation Status: retired Allergies Coded Allergies: Adhesives (Verified Allergy, Mild, 01/21/17) Aloe (Verified Allergy, Mild, 01/21/17) Aspirin (Verified Allergy, Mild, 01/21/17) Latex1 -Allergic Contact Dermititis (Verified Allergy, Unknown, RASH, 01/21) Home Medications Scheduled Amitriptyline HCl (Amitriptyline HCl), 100 MG PO HS Cholecalciferol (Vitamin D3), 1 CAP PO DAILY Ferrous Sulfate (Kp Ferrous Sulfate), 1 TAB PO 3XWK Glipizide (Glipizide Er), 1 TAB PO DAILY Levothyroxine Sodium (Synthroid), 25 MCG PO DAILY Metformin Hcl (Glucophage), 500 MG PO BID Omeprazole (Prilosec), 20 MG PO DAILY Potassium (Potassium), 99 MG PO DAILY Scheduled PRN Diclofenac Sodium (Topical) (Voltaren 1% Top Gel), 1 APPLN TOP UD PRN for Pain Tramadol (Ultram), 50-100 MG PO Q8H PRN for Pain Current Inpatient Medications Current Inpatient Medications Medications (Trade) Dose Ordered Sig/Abdirahman Route Start Time Stop Time Status Last Admin Dose Admin Ioversol (Optiray 320) 100 ml UD PRN IV 01/21/17 12:45 01/25/17 12:44 Enoxaparin Sodium (Lovenox Inj) 40 mg Q24H SQ 01/21/17 21:00 02/20/17 20:59 01/21/17 21:33 40 MG Acetaminophen (Tylenol Tab) 650 mg Q4H PRN PO 01/21/17 15:30 02/20/17 15:29 Al Hydrox/Mg Hydrox/Simethicone (Maalox Max Susp) 15 ml Q4H PRN PO 01/21/17 15:30 02/20/17 15:29 Magnesium Hydroxide (Milk Of Magnesia Susp) 30 ml Q6H PRN PO 01/21/17 15:30 02/20/17 15:29 Polyethylene (Miralax Powder Packet) 17 gm DAILY PRN PO 01/21/17 15:30 02/20/17 15:29 Ondansetron HCl (Zofran Inj) 4 mg Q6H PRN IV 01/21/17 15:30 02/20/17 15:29 Amitriptyline HCl (Elavil Tab) 100 mg HS PO 01/21/17 21:00 02/20/17 20:59 01/21/17 21:33 100 MG Diclofenac Sodium (Voltaren 1% Top Gel) 1 appln DAILY PRN EXT 01/21/17 15:30 02/20/17 15:29 Levothyroxine Sodium (Synthroid Tab) 25 mcg DAILYBB PO 01/22/17 06:30 02/21/17 06:29 01/22/17 06:26 25 MCG Tramadol HCl (Ultram Tab) 50 mg Q8H PRN PO 01/21/17 15:30 02/20/17 15:29 01/22/17 08:18 50 MG Cholecalciferol (Vitamin D Tab) 2,000 inter.unit QAM PO 01/22/17 08:00 02/21/17 08:59 01/22/17 08:18 2,000 INTER.UNIT Ferrous Sulfate (Feosol Tab) 325 mg MoWeFr@0900 PO 01/23/17 09:00 02/22/17 08:59 Pantoprazole Sodium (Protonix Tab) 40 mg QAM PO 01/22/17 08:00 02/21/17 08:59 01/22/17 08:17 40 MG Sodium Chloride 1,000 ml @ 80 mls/hr [id number] IV 01/21/17 15:30 02/20/17 15:29 01/22/17 04:23 80 MLS/HR Insulin Aspart (novoLOG ASPART) SLIDING SCALE G... ACHS SC 01/21/17 17:00 02/20/17 16:59 01/22/17 08:27 3 UNITS Insulin Glargine (Lantus Solostar Pen) 5 units BID SC 01/21/17 20:00 02/20/17 20:59 01/22/17 08:28 5 UNITS Glucose (Glucose 40% Gel) 15-30 GRAMS 15 GRAMS... UD PRN PO 01/21/17 17:00 02/20/17 16:59 Glucose (Glucose Chew Tab) 4-8 Tablets 4 Tabl... UD PRN PO 01/21/17 17:00 02/20/17 16:59 Dextrose (Dextrose 50% 50ML Syringe) 25-50ML OF 50% DW IV FOR... UD PRN IV 01/21/17 17:00 02/20/17 16:59 Glucagon (Glucagon Inj) 1 mg UD PRN SQ 01/21/17 17:00 02/20/17 16:59 Morphine Sulfate (MoRPHine SULFATE INJ) 2 mg Q4 PRN IV 01/22/17 11:45 02/05/17 11:44 Review of Systems Thoracic pain Physical Exam Date Time Temp Pulse Resp B/P (MAP) Pulse Ox O2 Delivery O2 Flow Rate FiO2 01/22/17 07:29 36.7 103 16 165/96 (119) 90 Room Air 01/22/17 04:50 36.7 94 17 149/85 (106) 90 Room Air 01/22/17 00:30 36.9 65 20 164/77 (106) 93 Room Air 01/22/17 00:00 Room Air 01/21/17 20:04 36.7 90 18 149/81 (103) 91 Room Air 01/21/17 18:37 Room Air 01/21/17 16:55 36.5 95 18 163/102 (122) 93 01/21/17 15:49 94 18 163/92 92 01/21/17 14:10 95 18 153/100 92 Room Air General Appearance: no apparent distress Head: normocephalic Eyes: normal inspection ENT: normal ENT inspection Neck: supple Respiratory/Chest: no respiratory distress Cardiovascular: regular rate, rhythm Abdomen/GI: soft Back: normal inspection Extremities/Musculoskelatal: normal inspection Neurologic/Psych: no motor/sensory deficits, oriented x 3 Skin: normal color, warm/dry Laboratory Results Last 24 Hours Test 01/21/17 17:12 01/21/17 18:02 01/21/17 20:17 01/22/17 06:02 Bedside Glucose 77 mg/dl 92 mg/dl Troponin I < 0.015 ng/ml < 0.015 ng/ml White Blood Count 5.23 K/uL Red Blood Count 3.66 M/uL Hemoglobin 9.6 g/dL Hematocrit 31.8 % Mean Corpuscular Volume 86.9 fL Mean Corpuscular Hemoglobin 26.2 pg Mean Corpuscular Hemoglobin Concent 30.2 g/dl Platelet Count 297 K/uL Mean Platelet Volume 9.5 fL Neutrophils (%) (Auto) 64.4 % Lymphocytes (%) (Auto) 25.4 % Monocytes (%) (Auto) 5.4 % Eosinophils (%) (Auto) 4.4 % Basophils (%) (Auto) 0.2 % Neutrophils # (Auto) 3.37 K/uL Lymphocytes # (Auto) 1.33 K/uL Monocytes # (Auto) 0.28 K/uL Eosinophils # (Auto) 0.23 K/uL Basophils # (Auto) 0.01 K/uL RDW Standard Deviation 51.9 fL RDW Coefficient of Variation 16.2 % Immature Granulocyte % (Auto) 0.2 % Immature Granulocyte # (Auto) 0.01 K/uL Sodium Level 140 mmol/L Potassium Level 3.8 mmol/L Chloride Level 105 mmol/L Carbon Dioxide Level 26 mmol/L Anion Gap 9.0 mmol/L Blood Urea Nitrogen 12 mg/dl Creatinine 1.30 mg/dl Est Creatinine Clear Calc Drug Dose 44.6 ml/min Estimated GFR () 47.5 Estimated GFR (Non- 41.0 BUN/Creatinine Ratio 9.5 Random Glucose 81 mg/dl Estimated Average Glucose 126 mg/dl Hemoglobin A1c 6.0 % Calcium Level 8.7 mg/dl Magnesium Level 1.8 mg/dl Test 01/22/17 07:50 Bedside Glucose 88 mg/dl Patient Name: LUIS DYKES Unit Number: [id number] Dictated: 01/21/171314 Transcribed: 01/21/171314 JRB Printed Date/Time: [~ rep prt dt]/[~ rep prt tm] [~ rep ct labl] - [~ rep ct ivnm] [facility] [place] [address] Dictated: 01/21/171314 Transcribed: 01/21/171314 JRB Printed Date/Time: [~ rep prt dt]/[~ rep prt tm] [~ rep ct labl] - [~ rep ct ivnm] Patient: LUIS DYKES Address1: [address] [place] [address] Rec: [id number] Address2: Acct ID: [id number] [facility] Zip: [place] [address] Date: 1945 Sex: F Room/Bed: Ref Phy: Wendy Chaves, C.R.N.P. SC: HAILEY Att Phy: Report #: [id number] Delisa Phy: Wendy Chaves, C.R.N.P. Test: CXPEA Admit Phy: Superintendent Schools: ROSALES Interpreting Phy: Herminio Burks D.O. Diagnosis: PAIN Ordering Phy: Asher Rivera M.D. Service Date: 01/21/17 Admit Date: 01/21/17 MNE: [id number] CONF: DICTATED BY: Herminio Burks D.O.]] CC: Asher Rivera M.D. Tyson, Rebecca L., C.R.N.P. Endcc: [~ rep ct add3]] (CHEST FOR PE) ANGIO WITH CT DOSE: 1290.59 mGycm HISTORY: 71 years-old Female presents with acute chest and upper abdominal pain. Concern for possible pulmonary embolus. TECHNIQUE: Multiple CTA images of the chest were obtained after the intravenous administration of 119 ml Optiray 320. Coronal and sagittal MIPS were obtained from the axial data set and were submitted for review. A dose lowering technique was utilized adhering to the principles of ALARA. COMPARISON: Chest radiograph of same day, thoracic spine radiographs 11/24/2016, CTA chest 06/20/2013 FINDINGS: CTA: Heart is mildly enlarged. There is mild mixed plaquing of the thoracic aorta without dissection or aneurysm identified. Imaged proximal great vessels appear patent. Pulmonary arterial tree is well-opacified to the level of the segmental branches and demonstrates no focal filling defects to suggest pulmonary thromboembolic disease. Subsegmental branches are not well opacified and are also partially secured by respiratory motion. CT CHEST: No dominant thyroid nodule identified. Mildly prominent right hilar lymph node measures up to 7 mm in short axis on image 128, unchanged. Precarinal lymph node measuring 9 mm in short axis is also unchanged. 8 mm AP window lymph node is also unchanged. No new adenopathy. There is a small right pleural effusion. Subsegmental bibasilar consolidative and groundglass opacities involving the lung bases suggest atelectasis. There is no pneumothorax. Mild paraseptal and is evidence changes involve all apices. Central airways are patent. 2.8 x 2.0 cm low attenuating lesion of the left hepatic lobe is again seen, unchanged suggesting cyst. No acute abnormality of the upper abdomen. Soft tissues are unremarkable. Prior bilateral mastectomy. Multiple lytic lesions throughout the vertebral bodies and bilateral ribs are noted, very suspicious for metastasis, new from prior chest CT. Compression deformity of the T6 vertebral body is again noted compatible with pathologic fracture. IMPRESSION: 1. Multiple destructive lytic lesions of the spine and multiple bilateral ribs are new from comparison chest CT 06/20/2013 and are most compatible with metastasis. 2. Compression deformity of the T6 vertebral body is again seen, unchanged from comparison radiograph dated 11/24/2016 compatible with pathologic fracture. 3. Small right pleural effusion with subsegmental bibasilar opacities suggesting atelectasis. 4. Mild adenopathy about the chest is unchanged from prior study suggesting reactive changes. 5. Low attenuating lesion of the left hepatic lobe, 2.8 cm is stable, likely reflecting a hepatic cyst. The above report was generated using voice recognition software. It may contain grammatical, syntax or spelling errors. Electronically signed by: Jus Burks M.D. 01/21/2017 1:26 PM Dictated Date/Time: 01/21/2017 1:15 PM The status of this report is Signed. Draft = Not yet reviewed or approved by Radiologist. Signed = Reviewed and approved by Radiologist. <AttendingPhy></AttendingPhy> <FamilyPhy>Wendy Chaves C.R.N.P.</FamilyPhy> <PrimaryPhy>Wendy Chaves, MartyRMarshalN.P.</PrimaryPhy> <UnitNumber>[id number]</ UnitNumber> <VisitNumber>[id number]</VisitNumber> <PatientName>LUIS DYKES</PatientName> <DateOfBirth>1945</DateOfBirth> <Location>[facility]</ Location> <ServiceDate>01/21/17</ServiceDate> <MNE>ESINDI</MNE> <OrderingPhy> Asher Rivera M.D.</OrderingPhy> <OrderingPhyMNE>f rep ord dr graves</ OrderingPhyMNE> <DictatingPhyMNE>f rep dict dr graves</DictatingPhyMNE> <CCListMNE> f rep ct mne</CCListMNE> <AdmittingPhyMNE>f pt admit dr graves</AdmittingPhyMNE> < AttendingPhyMNE>f pt attend dr graves</AttendingPhyMNE> <ConsultingPhyMNE>f pt consult dr graves</ConsultingPhyMNE> <FamilyPhyMNE>f pt fam dr graves</FamilyPhyMNE> <OtherPhyMNE>f pt other dr graves</OtherPhyMNE> < PrimaryPhyMNE>f pt prim care dr graves</PrimaryPhyMNE> <ReferringPhyMNE>f pt referring dr graves</ReferringPhyMNE> Assessment & Plan T6 compression fracture History of breast cancer 13 years ago and now with possible metastasis Plan: Compression fracture was found incidentally on her chest CT. I would like to update her imaging with the more localized scan. We would like to pursue MRI with and without contrast if possible of the thoracic spine due to her acute to subacute compression fracture as well as possibility of metastatic disease. This was relayed to the patient and daughter. They're comfortable with this plan. In regards to the compression fracture does be treated conservatively. Due to the location there is no bracing. Continue pain control. Thank you for this consultation
--- NOTE | 2017-01-22 12:57 | Progress Note ---
Subjective Date of Service: Jan 22, 2017. 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 Status: Acute (5) Pleural effusion, right Status: Acute Review of Systems Constitutional: No fever, No chills Respiratory: No shortness of breath Cardiac: No chest pain Abdomen: No pain, No nausea, No vomiting, No diarrhea Musculoskeletal: + joint pain, + muscle pain Medications Current Inpatient Medications Medications (Trade) Dose Ordered Sig/Abdirahman Route Start Time Stop Time Status Last Admin Dose Admin Ioversol (Optiray 320) 100 ml UD PRN IV 01/21/17 12:45 01/25/17 12:44 Enoxaparin Sodium (Lovenox Inj) 40 mg Q24H SQ 01/21/17 21:00 02/20/17 20:59 01/21/17 21:33 40 MG Acetaminophen (Tylenol Tab) 650 mg Q4H PRN PO 01/21/17 15:30 02/20/17 15:29 Al Hydrox/Mg Hydrox/Simethicone (Maalox Max Susp) 15 ml Q4H PRN PO 01/21/17 15:30 02/20/17 15:29 Magnesium Hydroxide (Milk Of Magnesia Susp) 30 ml Q6H PRN PO 01/21/17 15:30 02/20/17 15:29 Polyethylene (Miralax Powder Packet) 17 gm DAILY PRN PO 01/21/17 15:30 02/20/17 15:29 Ondansetron HCl (Zofran Inj) 4 mg Q6H PRN IV 01/21/17 15:30 02/20/17 15:29 Amitriptyline HCl (Elavil Tab) 100 mg HS PO 01/21/17 21:00 02/20/17 20:59 01/21/17 21:33 100 MG Diclofenac Sodium (Voltaren 1% Top Gel) 1 appln DAILY PRN EXT 01/21/17 15:30 02/20/17 15:29 Levothyroxine Sodium (Synthroid Tab) 25 mcg DAILYBB PO 01/22/17 06:30 02/21/17 06:29 01/22/17 06:26 25 MCG Tramadol HCl (Ultram Tab) 50 mg Q8H PRN PO 01/21/17 15:30 02/20/17 15:29 01/22/17 08:18 50 MG Cholecalciferol (Vitamin D Tab) 2,000 inter.unit QAM PO 01/22/17 08:00 02/21/17 08:59 01/22/17 08:18 2,000 INTER.UNIT Ferrous Sulfate (Feosol Tab) 325 mg MoWeFr@0900 PO 01/23/17 09:00 02/22/17 08:59 Pantoprazole Sodium (Protonix Tab) 40 mg QAM PO 01/22/17 08:00 02/21/17 08:59 01/22/17 08:17 40 MG Sodium Chloride 1,000 ml @ 80 mls/hr [id number] IV 01/21/17 15:30 02/20/17 15:29 01/22/17 04:23 80 MLS/HR Insulin Aspart (novoLOG ASPART) SLIDING SCALE G... ACHS SC 01/21/17 17:00 02/20/17 16:59 01/22/17 08:27 3 UNITS Insulin Glargine (Lantus Solostar Pen) 5 units BID SC 01/21/17 20:00 02/20/17 20:59 01/22/17 08:28 5 UNITS Glucose (Glucose 40% Gel) 15-30 GRAMS 15 GRAMS... UD PRN PO 01/21/17 17:00 02/20/17 16:59 Glucose (Glucose Chew Tab) 4-8 Tablets 4 Tabl... UD PRN PO 01/21/17 17:00 02/20/17 16:59 Dextrose (Dextrose 50% 50ML Syringe) 25-50ML OF 50% DW IV FOR... UD PRN IV 01/21/17 17:00 02/20/17 16:59 Glucagon (Glucagon Inj) 1 mg UD PRN SQ 01/21/17 17:00 02/20/17 16:59 Morphine Sulfate (MoRPHine SULFATE INJ) 2 mg Q4 PRN IV 01/22/17 11:45 02/05/17 11:44 01/22/17 12:20 2 MG Objective Vital Signs Date Time Temp Pulse Resp B/P (MAP) Pulse Ox O2 Delivery O2 Flow Rate FiO2 01/22/17 07:29 36.7 103 16 165/96 (119) 90 Room Air 01/22/17 04:50 36.7 94 17 149/85 (106) 90 Room Air 01/22/17 00:30 36.9 65 20 164/77 (106) 93 Room Air 01/22/17 00:00 Room Air 01/21/17 20:04 36.7 90 18 149/81 (103) 91 Room Air 01/21/17 18:37 Room Air 01/21/17 16:55 36.5 95 18 163/102 (122) 93 01/21/17 15:49 94 18 163/92 92 01/21/17 14:10 95 18 153/100 92 Room Air Physical Exam General Appearance: no apparent distress Respiratory/Chest: lungs clear, normal breath sounds, no respiratory distress, no accessory muscle use, + pertinent finding (pain at the lateral ribs bilaterally) Cardiovascular: regular rate, rhythm, no edema, no murmur Abdomen: normal bowel sounds, non tender, soft Extremities: normal range of motion, non-tender, normal inspection, no pedal edema, no calf tenderness Neurologic/Psychiatric: no motor/sensory deficits, alert, normal mood/affect Laboratory Results Last 24 Hours Test 01/21/17 17:12 01/21/17 18:02 01/21/17 20:17 01/22/17 06:02 Bedside Glucose 77 mg/dl 92 mg/dl Troponin I < 0.015 ng/ml < 0.015 ng/ml White Blood Count 5.23 K/uL Red Blood Count 3.66 M/uL Hemoglobin 9.6 g/dL Hematocrit 31.8 % Mean Corpuscular Volume 86.9 fL Mean Corpuscular Hemoglobin 26.2 pg Mean Corpuscular Hemoglobin Concent 30.2 g/dl Platelet Count 297 K/uL Mean Platelet Volume 9.5 fL Neutrophils (%) (Auto) 64.4 % Lymphocytes (%) (Auto) 25.4 % Monocytes (%) (Auto) 5.4 % Eosinophils (%) (Auto) 4.4 % Basophils (%) (Auto) 0.2 % Neutrophils # (Auto) 3.37 K/uL Lymphocytes # (Auto) 1.33 K/uL Monocytes # (Auto) 0.28 K/uL Eosinophils # (Auto) 0.23 K/uL Basophils # (Auto) 0.01 K/uL RDW Standard Deviation 51.9 fL RDW Coefficient of Variation 16.2 % Immature Granulocyte % (Auto) 0.2 % Immature Granulocyte # (Auto) 0.01 K/uL Sodium Level 140 mmol/L Potassium Level 3.8 mmol/L Chloride Level 105 mmol/L Carbon Dioxide Level 26 mmol/L Anion Gap 9.0 mmol/L Blood Urea Nitrogen 12 mg/dl Creatinine 1.30 mg/dl Est Creatinine Clear Calc Drug Dose 44.6 ml/min Estimated GFR () 47.5 Estimated GFR (Non- 41.0 BUN/Creatinine Ratio 9.5 Random Glucose 81 mg/dl Estimated Average Glucose 126 mg/dl Hemoglobin A1c 6.0 % Calcium Level 8.7 mg/dl Magnesium Level 1.8 mg/dl Test 01/22/17 07:50 01/22/17 11:31 Bedside Glucose 88 mg/dl 94 mg/dl Assessment and Plan This is a 71 year old female with a PMH of breast CA s/p bilateral total mastectomy in 2003, DM2, hypothyroidism presents with back pain, rib pain and found to have possible metastatic lesions Metastatic Disease unknown primary; hx. of breast CA s/p total mastectomy abdominal and chest CT suggests possible lytic lesions to the spine and bilateral ribs appreciate ortho input, MRI of the spine with/without contrast pending hem-onc consulted for further input she has had colonoscopy about 4 years prior with no findings; has had b/l salpingo-oophorectomy previous smoker about 10 years prior; quit around 2006 for now, we will use morphine and tramadol PRN for pain DM2 will try Lantus 5 units BID sliding scale monitor BSGs Hypothyroidism continue Synthroid DVT ppx Lovenox FULL CODE
--- NOTE | 2017-01-22 15:43 | ECHOCARDIOGRAM REPORT ---
*NOTICE TO RECEIVING [employer] AGENCY This information is strictly Confidential and protected under [place] law. [place] law prohibits you from making any further disclosure of this information unless further disclosure is expressly permitted by the written consent of the person to whom it pertains or is authorized by law. A general authorization for the release of medical or other information is not sufficient for this purpose. Hospital accepts no responsibility if the information is made available to any other person, INCLUDING THE PATIENT. Interpretation Summary * Name: LUIS DYKES Study Date: 01/22/2017 09:20 AM BP: 149/85 mmHg * Patient Location: [facility] HR: 102 * : 1945 (M/d/yyyy) Gender: Female Height: 66 in * Age: 71 yrs Ethnicity: CA Weight: 204 lb * Ordering Physician: Rusty Anaya * Referring Physician: Self, Referred * Performed By: Ciarra Pederson RCS * * Reason For Study: CHEST PAIN * BSA: 2.0 m2 * The study was technically limited. * There is no comparison study available. * -- Conclusions -- * Ejection Fraction = 50-55%. * There is mild concentric left ventricular hypertrophy. * No regional wall motion abnormalities noted. * There is trace tricuspid regurgitation. * Doppler findings do not suggest pulmonary hypertension. Procedure Details * A complete two-dimensional transthoracic echocardiogram was performed (2D, M-mode, Doppler and color flow Doppler). Left Ventricle * The left ventricle is normal in size. * There is no thrombus. * There is mild concentric left ventricular hypertrophy. * The basal septum is thickened and angulated consistent with sigmoid septum. * Left ventricular systolic function is normal. * Ejection Fraction = 50-55%. * No regional wall motion abnormalities noted. Right Ventricle * The right ventricle is normal size. * The right ventricular systolic function is normal as assessed by tricuspid annular plane systolic excursion (TAPSE) (normal >1.5 cm). Atria * The left atrial size is normal. * Right atrial size is normal. * There is no evidence of atrial septal defect, but resolution does not allow assessment for a patent foramen ovale. Mitral Valve * There is mild mitral annular calcification. * There is no mitral valve stenosis. * Significant mitral regurgitation is absent. Tricuspid Valve * The tricuspid valve is normal. * There is no tricuspid stenosis. * There is trace tricuspid regurgitation. * Doppler findings do not suggest pulmonary hypertension. Aortic Valve * The aortic valve is trileaflet. * Aortic stenosis is absent. * There is no significant aortic regurgitation. Pulmonic Valve * The pulmonary valve is not well seen, but the Doppler examination is normal without significant regurgitation or stenosis. Great Vessels * The aortic root and proximal ascending aorta are normal sized. Pericardium/Pleural * There is no pericardial effusion. Great Vessels * Normal IVC diameter without inspiratory variation suggesting RA pressure of 8mmHg. MMode 2D Measurements and Calculations IVSd 1.1 cm IVSs 1.7 cm LVIDd 4.5 cm LVIDs 3.1 cm LVPWd 1.1 cm LVPWs 1.5 cm IVS/LVPW 1.0 FS 31.7 % EDV(Teich) 92.9 ml ESV(Teich) 37.4 ml EF(Teich) 59.8 % EDV(cubed) 91.6 ml ESV(cubed) 29.3 ml EF(cubed) 68.1 % % IVS thick 53.5 % % LVPW thick 35.2 % LV mass(C)d 173.7 grams LV mass(C)dI 86.1 grams/m\S\2 LV mass(C)s 178.0 grams LV mass(C)sI 88.3 grams/m\S\2 SV(Teich) 55.5 ml SI(Teich) 27.5 ml/m\S\2 SV(cubed) 62.4 ml SI(cubed) 30.9 ml/m\S\2 Ao root diam 3.1 cm Ao root area 7.7 cm\S\2 LA dimension 3.6 cm LA/Ao 1.1 LVOT diam 2.0 cm LVOT area 3.0 cm\S\2 Doppler Measurements and Calculations MV E max alina 155.3 cm/sec MV P1/2t max alina 162.4 cm/sec MV P1/2t 60.1 msec MVA(P1/2t) 3.7 cm\S\2 MV dec slope 791.6 cm/sec\S\2 MV dec time 0.18 sec PA V2 max 100.0 cm/sec PA max PG 4.0 mmHg
--- NOTE | 2017-01-22 19:32 | Medical Consult ---
Consultation Date of Consultation: Jan 22, 2017. Attending Physician: Narcisa Reese DO History of Present Illness Hematology/Oncology consult: Evaluation and management of multiple lytic lesions noted with a history of breast cancer. Date of consultation: 01/22/2017 HPI: 71-year-old female, who complained of some nonspecific back pain earlier in October,, got worse in the last one month, she develop left facial paralysis, she was seen at [facility] ER, diagnosed a case of Green 's palsy, Lyme serology was positive, she was treated with 3 weeks of antibiotic treatment and steroid with improvement of the neurological symptoms, presently she does not have any symptoms of Green 's palsy. Because of increasing back pain as well as bilateral chest pain, she came to the ER on 01/21/2017 and now she is admitted for further evaluation management. Right breast DCIS with microinvasion, S/P bilateral mastectomies done in October,, Date of Diagnosis: 09/22/03 Date of Surgery: 10/27/03 Surgical Treatment: Bilateral Total Mastectomy with SLN bx on right breast only (Left prophylactic) Pathology: Size of Tumor - extensive DCIS component Type - Well differentiated DCIS,(ON RIGHT), with microinvasive component Number of Lymph Nodes Removed - 2 (0 Positive) ER+, CO+, Her 2 Ary not assayed. Stage of Cancer: Stage I T1a-N0- M0 CTX: none RTX: none HORMONAL THERAPY: none. Blood workup done on 01/21/2017: -WBC 7800, H&H of 10.6/33.4, MCV 85, Platelet count of 335,000. -BUN/Creat: 11/1.2, calcium 9.4, AST 22, ALT 22, alkaline phosphatase 143, Total bilirubin: 0.5. -SPEP done in April, and in March,--> normal pattern, no monoclonal protein noted. -IgG 1682, IgA 330, IgM 94. -Lyme serology positive (12/14/2016). -CT scan of the abdomen and pelvis done on 01/21/2017 --> 2.5 cm left lobe of the liver cyst, no splenomegaly, multiple lytic lesions noted, scattered lymph nodes in the paraesophageal region, retroperitoneum at the upper limit of normal size noted. -CT scan of the chest done on 01/21/2017--> multiple destructive lytic lesions noted in the spine and the ribs, compression fracture deformity T6, compatible with pathological fracture, small right pleural effusion, stable subcentimeter lymph nodes noted in the mediastinum. -CT scan of the head done on 12/14/2016 showed no new suspicious findings. No bone lesions reported. REVIEW OF SYSTEMS: GENERAL: She lost the significant weight in the last one month, feeling slightly weak and tired but no fever or chills. SKIN: No skin rash, no bruising. HEAD: No new headache, no dizziness. EYES: No recent change in the vision, no diplopia, EARS: No earache no tinnitus, NOSE: No epistaxis, No nasal discharge or stuffiness, MOUTH: No sores, no dysphagia, no hoarseness of voice, NECK: No lumps, No swelling in thyroid area. No stiffness. PULMONARY: No cough, No shortness of breath, no hemoptysis, no chest pain, No wheezing. CARDIOVASCULAR: No anginal chest pain, no PND, no orthopnea. No palpitation, no leg edema. No syncope. GASTROINTESTINAL: No abdominal pain, no nausea or vomiting. No diarrhea, constipation present. No blood in stool or black tarry stools. No abdominal distention. UROLOGIC: No burning urination. No hematuria. MUSCULOSKELETAL: Back pain as described above. HEMATOLOGIC: No anemia, no bleeding disorder, No bruising. No history of blood transfusion. NEUROLOGIC: No seizures, no focal weakness, no speech difficulty, No memory disturbances. No tingling or numbness of the extremities. PSYCHIATRIC: No depression. No anxiety. No psychosis. SLEEP: No sleep disorder. Past medical and surgical history: -S/P bilateral mastectomies in 2003, S/P laparoscopic cholecystectomy and hysterectomy. -history of the diabetes mellitus, hypothyroidism, GERD. Recently diagnosed with the lines disease presented with Green 's palsy on the left side, treated with antibiotic treatment and steroid, improvement of the neurological symptoms noted. Social history: History of smoking present, no alcohol abuse. No IVDA. She lives with her granddaughter. Drives around by herself. Family history: Not significant for the cancer diagnosis but Medications: Please review her chart for detailed list of medications. On exam: - Alert and oriented x3, well built woman, not in any distress. - HEENT: no icterus, no pallor, Throat: Normal. - Neck: No palpable cervical lymphadenopathy. - Chest: clear to auscultation. - Abdomen: soft, nontender, no hepatomegaly, no splenomegaly. - No focal neuro deficit. - Extremities: no finger clubbing, no leg edema. Lab: As described above. ASSESSMENT AND PLAN: 71-year-old female, who had Green 's palsy recently in November,, diagnosed a case of Lyme disease, she was treated with 3 weeks of antibiotic treatment and steroid therapy with improvement of the Green 's palsy symptoms com presently she does not have any similar symptoms, also complains of increasing back pain and bilateral chest pain for the last the 3 months getting worse over the last few weeks, she had a history of right breast the low -grade DCIS with some micro invasion, she opted for bilateral mastectomies earlier in 2003, hormonal positive, she did not receive any adjuvant hormonal treatment, also did not receive any radiation treatment at that time, now recent the imaging study shows multiple lytic lesions involving the spine, ribs which has raised the possibility of metastatic disease versus myeloma. She had a blood workup done earlier in 2014 showed no evidence of monoclonal protein in the blood, she had elevated IgG level at that time. I discussed with her and family members were bedside regarding the diagnostic workup done in her case so far, she will need tissue diagnosis before we proceed for any kind of treatment option. I would like to rule out multiple myeloma in her case at this time, will check SPEP, light chain assay for further evaluation. She says that she is going for MRI of the thoracic spine. It would be somewhat unusual to have metastatic breast cancer in her case at this time especially when she had low-grade DCIS with a small focus of microinvasion and she opted for bilateral mastectomies at that time. If myeloma workup is negative, she will need biopsy from the 1 of the bone lesion. Thanks for the consultation. Dr. Frantz Tai Hem/Onc (This note was completed using the dictation program Fluency Direct. As such, there may be misspellings, word substitutions, or other variations that should not change the essence of the clinical content of this encounter note. 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 Status: Acute (5) Pleural effusion, right Status: Acute Family History Diabetes mellitus Hypertension Kidney disease Kidney stones Social History Smoking Status: Former Smoker Marital Status: Housing Status: lives with family Occupation Status: retired Allergies Coded Allergies: Adhesives (Verified Allergy, Mild, 01/21/17) Aloe (Verified Allergy, Mild, 01/21/17) Aspirin (Verified Allergy, Mild, 01/21/17) Latex1 -Allergic Contact Dermititis (Verified Allergy, Unknown, RASH, 01/21) Current Inpatient Medications Current Inpatient Medications Medications (Trade) Dose Ordered Sig/Abdirahman Route Start Time Stop Time Status Last Admin Dose Admin Ioversol (Optiray 320) 100 ml UD PRN IV 01/21/17 12:45 01/25/17 12:44 Enoxaparin Sodium (Lovenox Inj) 40 mg Q24H SQ 01/21/17 21:00 02/20/17 20:59 01/21/17 21:33 40 MG Acetaminophen (Tylenol Tab) 650 mg Q4H PRN PO 01/21/17 15:30 02/20/17 15:29 Al Hydrox/Mg Hydrox/Simethicone (Maalox Max Susp) 15 ml Q4H PRN PO 01/21/17 15:30 02/20/17 15:29 Magnesium Hydroxide (Milk Of Magnesia Susp) 30 ml Q6H PRN PO 01/21/17 15:30 02/20/17 15:29 Polyethylene (Miralax Powder Packet) 17 gm DAILY PRN PO 01/21/17 15:30 02/20/17 15:29 Ondansetron HCl (Zofran Inj) 4 mg Q6H PRN IV 01/21/17 15:30 02/20/17 15:29 Amitriptyline HCl (Elavil Tab) 100 mg HS PO 01/21/17 21:00 02/20/17 20:59 01/21/17 21:33 100 MG Diclofenac Sodium (Voltaren 1% Top Gel) 1 appln DAILY PRN EXT 01/21/17 15:30 02/20/17 15:29 Levothyroxine Sodium (Synthroid Tab) 25 mcg DAILYBB PO 01/22/17 06:30 02/21/17 06:29 01/22/17 06:26 25 MCG Tramadol HCl (Ultram Tab) 50 mg Q8H PRN PO 01/21/17 15:30 02/20/17 15:29 01/22/17 08:18 50 MG Cholecalciferol (Vitamin D Tab) 2,000 inter.unit QAM PO 01/22/17 08:00 02/21/17 08:59 01/22/17 08:18 2,000 INTER.UNIT Ferrous Sulfate (Feosol Tab) 325 mg MoWeFr@0900 PO 01/23/17 09:00 02/22/17 08:59 Pantoprazole Sodium (Protonix Tab) 40 mg QAM PO 01/22/17 08:00 02/21/17 08:59 01/22/17 08:17 40 MG Sodium Chloride 1,000 ml @ 80 mls/hr [id number] IV 01/21/17 15:30 02/20/17 15:29 01/22/17 16:58 80 MLS/HR Insulin Aspart (novoLOG ASPART) SLIDING SCALE G... ACHS SC 01/21/17 17:00 02/20/17 16:59 01/22/17 08:27 3 UNITS Insulin Glargine (Lantus Solostar Pen) 5 units BID SC 01/21/17 20:00 02/20/17 20:59 01/22/17 08:28 5 UNITS Glucose (Glucose 40% Gel) 15-30 GRAMS 15 GRAMS... UD PRN PO 01/21/17 17:00 02/20/17 16:59 Glucose (Glucose Chew Tab) 4-8 Tablets 4 Tabl... UD PRN PO 01/21/17 17:00 02/20/17 16:59 Dextrose (Dextrose 50% 50ML Syringe) 25-50ML OF 50% DW IV FOR... UD PRN IV 01/21/17 17:00 02/20/17 16:59 Glucagon (Glucagon Inj) 1 mg UD PRN SQ 01/21/17 17:00 02/20/17 16:59 Morphine Sulfate (MoRPHine SULFATE INJ) 2 mg Q4 PRN IV 01/22/17 11:45 02/05/17 11:44 01/22/17 16:54 2 MG Physical Exam Date Time Temp Pulse Resp B/P (MAP) Pulse Ox O2 Delivery O2 Flow Rate FiO2 01/22/17 15:08 36.9 98 20 163/93 (116) 90 01/22/17 12:50 Room Air 01/22/17 12:00 36.5 94 16 151/88 (109) 90 Room Air 01/22/17 07:29 36.7 103 16 165/96 (119) 90 Room Air 01/22/17 04:50 36.7 94 17 149/85 (106) 90 Room Air 01/22/17 00:30 36.9 65 20 164/77 (106) 93 Room Air 01/22/17 00:00 Room Air 01/21/17 20:04 36.7 90 18 149/81 (103) 91 Room Air Laboratory Results Last 24 Hours Test 01/21/17 20:17 01/22/17 06:02 01/22/17 07:50 01/22/17 11:31 Bedside Glucose 92 mg/dl 88 mg/dl 94 mg/dl White Blood Count 5.23 K/uL Red Blood Count 3.66 M/uL Hemoglobin 9.6 g/dL Hematocrit 31.8 % Mean Corpuscular Volume 86.9 fL Mean Corpuscular Hemoglobin 26.2 pg Mean Corpuscular Hemoglobin Concent 30.2 g/dl Platelet Count 297 K/uL Mean Platelet Volume 9.5 fL Neutrophils (%) (Auto) 64.4 % Lymphocytes (%) (Auto) 25.4 % Monocytes (%) (Auto) 5.4 % Eosinophils (%) (Auto) 4.4 % Basophils (%) (Auto) 0.2 % Neutrophils # (Auto) 3.37 K/uL Lymphocytes # (Auto) 1.33 K/uL Monocytes # (Auto) 0.28 K/uL Eosinophils # (Auto) 0.23 K/uL Basophils # (Auto) 0.01 K/uL RDW Standard Deviation 51.9 fL RDW Coefficient of Variation 16.2 % Immature Granulocyte % (Auto) 0.2 % Immature Granulocyte # (Auto) 0.01 K/uL Sodium Level 140 mmol/L Potassium Level 3.8 mmol/L Chloride Level 105 mmol/L Carbon Dioxide Level 26 mmol/L Anion Gap 9.0 mmol/L Blood Urea Nitrogen 12 mg/dl Creatinine 1.30 mg/dl Est Creatinine Clear Calc Drug Dose 44.6 ml/min Estimated GFR () 47.5 Estimated GFR (Non- 41.0 BUN/Creatinine Ratio 9.5 Random Glucose 81 mg/dl Estimated Average Glucose 126 mg/dl Hemoglobin A1c 6.0 % Calcium Level 8.7 mg/dl Magnesium Level 1.8 mg/dl Troponin I < 0.015 ng/ml Test 01/22/17 16:59 Bedside Glucose 79 mg/dl
[2017-01-22] MEDS: AMITRIPTYLINE HCL 100 MG TAB PO SCH (20:44)
[2017-01-22] MEDS: ENOXAPARIN 40 MG/0.4 ML SYR SQ SCH (20:44)
[2017-01-22] MEDS ORDERED: LORAZEPAM INJ 1 MG in SYRINGE 0.5 ML IV ONE (22:30)
[2017-01-23] MEDS ORDERED: GADAVIST IV PRN ×2 (00:30→18:15)
[2017-01-23] MEDS: MoRPHine SULFATE 2 MG/ML CARP IV PRN ×5 (01:17→18:40)
[2017-01-23 03:44] VITALS: BP 154/90; PULSE 97; TEMP 36.6; O2SAT 92
[2017-01-23] MEDS: SODIUM CHLORIDE 0.9% 1000ML 1,000 ML IV SCH ×2 (05:06→17:07)
[2017-01-23 06:05] LABS: BASO % 0.2 %; BASO ABS # 0.01 K/uL (0-0.2); COMPLETE YES; EOS % 4.2 %; HEMATOCRIT 32.3 % (37-47); IG% 0.3 %; LYMPH % 29.1 %; LYMPH ABS # 1.74 K/uL (1.2-3.4); MEAN CELL VOLUME 85.9 fL (80-100); MEAN CORPUSCULAR HEMOGLOBIN 26.1 pg (25-34); MEAN CORPUSCULAR HGB CONC 30.3 g/dl (32-36); MEAN PLATELET VOLUME 9.6 fL (7.4-10.4); MONO % 5.2 %; PLATELET COUNT 303 K/uL (130-400); RED BLOOD COUNT 3.76 M/uL (4.2-5.4); WHITE BLOOD COUNT 5.97 K/uL (4.8-10.8)
[2017-01-23] MEDS: LEVOTHYROXINE 25 MCG TAB PO SCH (06:07)
[2017-01-23 06:43] LABS: BUN/CREATININE RATIO 12.1 (10-20); CALCIUM 8.7 mg/dl (8.5-10.1); MAGNESIUM 1.9 mg/dl (1.8-2.4); POTASSIUM 3.4 mmol/L (3.5-5.1)
--- NOTE | 2017-01-23 07:41 | DIAGNOSTIC IMAGING REPORT ---
MRI THE THORACIC SPINE WITHOUT AND WITH GADOLINIUM CLINICAL HISTORY: T6 compression fracture. Evaluate for metastatic disease. History of breast carcinoma COMPARISON STUDY: Chest CT dated 01/22/2016 FINDINGS: There are areas of marrow replacement involving nearly every visible vertebral body. The findings are consistent with widespread metastatic disease. There is mild vertebral body expansion at the C7, T1, and T6 levels with minor impingement on the anterior spinal canal. No intrinsic cord lesions are visualized. There is no current evidence of significant cord compression. Postcontrast images reveal no pathologic enhancing cord lesions. There is a small right pleural effusion. IMPRESSION: 1. Diffuse skeletal metastatic disease with involvement of nearly every cervical thoracic and lumbar vertebral body. 2. Mild posterior vertebral body expansion at the C7, T1 and T6 levels, with minor impingement on the anterior aspect of the spinal canal 3. No current evidence of significant cord compression Electronically signed by: Naman Bowie M.D. 01/23/2017 7:40 AM Dictated Date/Time: 01/23/2017 7:30 AM
[2017-01-23 07:47] VITALS: BP 160/100; PULSE 101; TEMP 36.8; O2SAT 94
[2017-01-23] MEDS: FERROUS SULFATE 325 MG TAB PO SCH (08:17)
[2017-01-23] MEDS: CHOLECALCIFEROL 1000 INTER.UNIT TAB PO SCH (08:17)
[2017-01-23] MEDS: PANTOprazole SOD 40 MG TAB PO SCH (08:17)
[2017-01-23] MEDS: INSULIN ASPART 100 UNITS/ML 3 ML PEN SC SCH ×4 (08:23→21:00)
[2017-01-23] MEDS: MAGNESIUM HYDROXIDE SUSP 30 ML UDC PO PRN (08:24)
[2017-01-23] MEDS: INSULIN GLARGINE SOLOSTAR 100 UNITS/ML 3 ML PEN SC SCH ×2 (08:24→21:11)
[2017-01-23 08:31] VITALS: BP 163/97; PULSE 106
[2017-01-23] MEDS ORDERED: AMLODIPINE BESYLATE 5 MG TAB PO ONE (09:15)
[2017-01-23 11:31] VITALS: BP 146/83; PULSE 104; TEMP 36.8; O2SAT 93
--- NOTE | 2017-01-23 12:39 | Radiation Oncology Consult ---
Radiation Oncology Consult Date / Reason Jan 23, 2017. evaluation for palliative radiation therapy Physicians Primary Care Provider: Wendy FRAGOSO Medical Oncologist: Dr. Tai Radiation Oncologist: Dr. 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 Ponce is a 71-year-old female who underwent a biopsy of the right inferior breast on 09/29/2003. This showed a microinvasive ductal carcinoma with a Rodrigues Roche grade of 1 of 3. There was also low-grade ductal carcinoma in situ without necrosis. Specimen #[id number]. Patient went on to have bilateral mastectomy on 10/30/2003. The left breast total mastectomy showed no in situ or invasive carcinoma identified. The right breast total mastectomy revealed focal ductal carcinoma in situ with associated microcalcifications, cribriform without necrosis. Nuclear grade was 103. There was no invasive carcinoma identified. 2 sentinel lymph nodes were identified and both were negative for metastatic carcinoma on routine sections and immunohistochemical stains for cytokeratin. Specimen #: [id number]. No adjuvant radiation was required. No adjuvant systemic chemotherapy was required. Patient did not receive adjuvant antiestrogen therapy. More recently the patient has complained of back pain, chest pain and generalized pain with decreasing appetite and 20 pound weight loss. She was recently diagnosed with Lyme's disease and Green's palsy and completed 3 week course of antibiotics and a course of steroids. The back pain started several months ago but improved on the steroids. With the completion of the steroids the back pain has become more severe. She places the pain at a 6 without medication. With pain medication this improves to a 3 or 4. Patient denies any numbness or change in her muscle strength. On January 21 she presented to her family physician because of worsening back pain and chest pain. The pain was in the ribs right ribs and occasionally left ribs. She was felt to have a pleural effusion and was admitted for further evaluation and workup. A CT angiogram of the chest was done which was negative for pulmonary embolus. There was noted multiple lytic lesions of the spine as well as multiple bilateral ribs that are compatible with widespread metastatic disease. There was a compression deformity at T6 again seen unchanged from radiographs from 11/24/2016 compatible with a pathologic fracture. It was a low attenuating lesion in the left hepatic lobe measuring 2.8 cm which is stable likely representing up hepatic cyst. A small right pleural effusion with some segmental by basilar opacities suggesting atelectasis. CT scan of the abdomen and pelvis showed extensive lytic bony disease likely secondary to metastatic disease or possibly myeloma. No other abnormalities were appreciated. MRI of the thoracic spine was performed. This showed diffuse skeletal metastatic disease with involvement of nearly every cervical, thoracic and lumbar vertebral body. There was mild posterior vertebral body expansion at the C7, T1, T6, T9 levels with minor impingement on the anterior aspect of the spinal cord. There was also significant involvement of the L4 vertebral body. There was no current evidence of significant cord compression appreciated. The patient was started on pain medication initially consisting of Toradol and subsequently morphine. With pain medication his pain is significantly improved. She is able to move though there is increased pain with deep breathing or cough. The patient was seen by Dr. Frantz Tai for medical oncology input. We were asked to see her for discussion of the role of palliative radiation. It is for this reason the patient is seen today. Past History Past Medical/Surgical History: Diabetes Type 2, Neurological Disorder (MS), Reflux, Cancer, Other (status post Lyme disease) Social History Smoking Status: Former Smoker Hx Tobacco Use In Past Year?: No (quit in 2002) Quit Date: Apr 27, 2002 Do You Dip or Chew Tobacco: No (.) Hx Alcohol Use: No Hx Substance Use : No Allergies Coded Allergies: Adhesives (Verified Allergy, Mild, 01/21/17) Aloe (Verified Allergy, Mild, 01/21/17) Aspirin (Verified Allergy, Mild, 01/21/17) Latex1 -Allergic Contact Dermititis (Verified Allergy, Unknown, RASH, 01/21) Home Medications Scheduled Amitriptyline HCl (Amitriptyline HCl), 100 MG PO HS Cholecalciferol (Vitamin D3), 1 CAP PO DAILY Ferrous Sulfate (Kp Ferrous Sulfate), 1 TAB PO 3XWK Glipizide (Glipizide Er), 1 TAB PO DAILY Levothyroxine Sodium (Synthroid), 25 MCG PO DAILY Metformin Hcl (Glucophage), 500 MG PO BID Omeprazole (Prilosec), 20 MG PO DAILY Potassium (Potassium), 99 MG PO DAILY Scheduled PRN Diclofenac Sodium (Topical) (Voltaren 1% Top Gel), 1 APPLN TOP UD PRN for Pain Tramadol (Ultram), 50-100 MG PO Q8H PRN for Pain Review of Systems Head: Headaches: Yes (mild headache which is in the parietal area. This lasted approximately 2 hours last evening and resolved with pain medication.) Dizziness: No Eyes: Within Normal Limits: No Ear/Hearing: Ear Side: Bilateral Hearing Ability: Normal Hearing Aid: None Gastrointestinal: Gastrointestinal: Reflux (GERD) (this was treated by her primary care and greatly improved with medication) Edema: Present?: No Location Body Site Modifier: Bilateral Pain Management Side: Right Patient Preferred Pain Scale: 0 - 10 Initial Pain Intensity: 7.0 Pain Description: Dull, Aching Physical Exam Height: 5 (Feet) 6.00 (Inches) 167.6 (Centimeters) 1.6764 (Meters) Weight: 201 (Pounds) 8.0 (Ounces) 91.400 (Kilograms) 82993.000 (Grams) Date Time Temp Pulse Resp B/P (MAP) Pulse Ox O2 Delivery O2 Flow Rate FiO2 01/23/17 11:31 36.8 104 18 146/83 (104) 93 Room Air 01/23/17 08:31 106 163/97 (119) 01/23/17 08:30 Room Air 01/23/17 07:47 36.8 101 20 160/100 (120) 94 01/23/17 03:44 36.6 97 18 154/90 (111) 92 Room Air 01/23/17 00:00 Room Air 01/22/17 22:59 36.6 97 18 169/93 (118) 92 Room Air 01/22/17 20:00 36.7 91 18 157/92 (113) 91 Room Air 01/22/17 16:00 90 Room Air 01/22/17 15:08 36.9 98 20 163/93 (116) 90 01/22/17 12:50 Room Air General Appearance: + mild distress (with sitting up and laying back down to back discomfort) Head: normocephalic Eyes: normal inspection, EOMI ENT: normal ENT inspection, hearing grossly normal Neck: no adenopathy, thyroid normal Breast: Status post bilateral mastectomies. Palpable adenopathy of the right axilla and no masses of the chest wall. Respiratory/Chest: lungs clear, no respiratory distress, no accessory muscle use, + pertinent finding (anterior low rib tenderness bilaterally) Cardiovascular: regular rate, rhythm, no gallop, no murmur Abdomen/GI: soft, no organomegaly Back: + pertinent finding (currently no tenderness of the spinal processes or paraspinous musculature) Extremities: no pedal edema Neurologic/Psych: no motor/sensory deficits, alert, normal mood/affect Skin: warm/dry Lymphatic: + axillary node abnormality Laboratory Labortaory Results: were reviewed Laboratory Comments Laboratory studies for multiple myeloma are pending Pathology Pathology results: were reviewed, and pertinent findings noted below Pathology Comments Pathology from the bilateral mastectomies revealed DCIS with associated microcalcifications, cribriform without necrosis. Nuclear grade 1 of 3. [place] lymph node was negative for metastatic disease. No invasive carcinoma. Margins were negative. The left breast showed benign tissue. Pathology was performed 10/30/2003. Specimen [id number]. Imaging Imaging studies: were reviewed, and pertinent findings noted below Imaging Comments Patient: LUIS PONCE Address1: [address] [place] [address] Rec: [id number] Address2: [facility] ID: [id number] [facility] Zip: [place] [address] Date: 1945 Sex: F Room/Bed: Ref Phy: Wendy Chaves, C.R.N.P. SC: HAILEY Att Phy: Report #: [id number] [facility] Phy: Wendy Chaves, C.R.N.P. Test: CXPEA Admit Phy: Timber Poisoner: ROSALES Interpreting Phy: Herminio Burks D.O. Diagnosis: PAIN Ordering Phy: Asher Rivera M.D. Service Date: 01/21/17 Admit Date: 01/21/17 MNE: PWRSCRIBE CONF: DICTATED BY: Herminio Burks D.O.]] CC: Asher Rivera M.D. Tyson, Rebecca L., C.R.N.P. Endcc: [~ rep ct add3]] (CHEST FOR PE) ANGIO WITH CT DOSE: 1290.59 mGycm HISTORY: 71 years-old Female presents with acute chest and upper abdominal pain. Concern for possible pulmonary embolus. TECHNIQUE: Multiple CTA images of the chest were obtained after the intravenous administration of 119 ml Optiray 320. Coronal and sagittal MIPS were obtained from the axial data set and were submitted for review. A dose lowering technique was utilized adhering to the principles of ALARA. COMPARISON: Chest radiograph of same day, thoracic spine radiographs 11/24/2016, CTA chest 06/20/2013 FINDINGS: CTA: Heart is mildly enlarged. There is mild mixed plaquing of the thoracic aorta without dissection or aneurysm identified. Imaged proximal great vessels appear patent. Pulmonary arterial tree is well-opacified to the level of the segmental branches and demonstrates no focal filling defects to suggest pulmonary thromboembolic disease. Subsegmental branches are not well opacified and are also partially secured by respiratory motion. CT CHEST: No dominant thyroid nodule identified. Mildly prominent right hilar lymph node measures up to 7 mm in short axis on image 128, unchanged. Precarinal lymph node measuring 9 mm in short axis is also unchanged. 8 mm AP window lymph node is also unchanged. No new adenopathy. There is a small right pleural effusion. Subsegmental bibasilar consolidative and groundglass opacities involving the lung bases suggest atelectasis. There is no pneumothorax. Mild paraseptal and is evidence changes involve all apices. Central airways are patent. 2.8 x 2.0 cm low attenuating lesion of the left hepatic lobe is again seen, unchanged suggesting cyst. No acute abnormality of the upper abdomen. Soft tissues are unremarkable. Prior bilateral mastectomy. Multiple lytic lesions throughout the vertebral bodies and bilateral ribs are noted, very suspicious for metastasis, new from prior chest CT. Compression deformity of the T6 vertebral body is again noted compatible with pathologic fracture. IMPRESSION: 1. Multiple destructive lytic lesions of the spine and multiple bilateral ribs are new from comparison chest CT 06/20/2013 and are most compatible with metastasis. 2. Compression deformity of the T6 vertebral body is again seen, unchanged from comparison radiograph dated 11/24/2016 compatible with pathologic fracture. 3. Small right pleural effusion with subsegmental bibasilar opacities suggesting atelectasis. 4. Mild adenopathy about the chest is unchanged from prior study suggesting reactive changes. 5. Low attenuating lesion of the left hepatic lobe, 2.8 cm is stable, likely reflecting a hepatic cyst. The above report was generated using voice recognition software. It may contain grammatical, syntax or spelling errors. Electronically signed by: Jus Burks M.D. 01/21/2017 1:26 PM Dictated Date/Time: 01/21/2017 1:15 PM Patient: LUIS PONCE Address1: [address] [facility] Rec: [id number] Address2: Acct ID: [id number] [facility] Zip: [place] [address] Date: 1945 Sex: F Room/Bed: Ref Phy: Wendy Chaves, C.R.N.P. SC: HAILEY Maldonado Phy: Report #: [id number] [place] Phy: Wendy Chaves, C.R.N.P. Test: APIV Admit Phy: Timber Poisoner: ROSALES Interpreting Phy: Naman Bowie M.D. Diagnosis: PAIN Ordering Phy: Asher Rivera M.D. Service Date: 01/21/17 Admit Date: 01/21/17 MNE: PWRSCRIBE CONF: DICTATED BY: Naman Bowie M.D.]] CC: Asher Rivera M.D. Tyson, Rebecca L., C.R.N.P. Endcc: [~ rep ct add3]] CT ABD/PELVIS IV CONTRAST ONLY CLINICAL HISTORY: Epigastric abdominal pain COMPARISON STUDY: September 2007 TECHNIQUE: Following the IV administration of 119 mL of Optiray-320, CT scan of the abdomen and pelvis was performed from the lung bases to the proximal femurs. Images are reviewed in the axial, sagittal, and coronal planes. IV contrast was administered without complication. A dose lowering technique was utilized adhering to the principles of ALARA. CT DOSE: FINDINGS: Lower chest: There is a small right pleural effusion. There are bibasal atelectatic changes. Liver: There is a stable 2.5 cm left lobe hepatic cyst. There is a 12 mm hypodensity within the left hepatic lobe posteriorly. This slightly exceeds water attenuation. This remains unchanged from 2008, and is almost certainly benign Gallbladder: Surgically absent Spleen: Normal in size and attenuation. Pancreas: Unremarkable. Adrenal glands: There is bilateral adrenal gland thickening Kidneys: No solid renal masses are visualized. There is a 7 mm left renal hypodensity, likely representing a cyst. There is no hydronephrosis. Bowel: There are no transition zones indicate bowel obstruction. There is no acute diverticulitis. The appendix is normal. There is scattered stool throughout the colon. Peritoneum: There is no intraperitoneal free air or abdominal ascites. Vasculature: The abdominal aorta is normal in course and caliber. Adenopathy: There are pericardial, para esophageal, and para-aortic lymph nodes are the upper limits of normal in size. An ovoid opacity adjacent the left internal iliac vessels, likely represents the patient's robinson left ovary. Pelvic viscera: The uterus is surgically absent Skeletal structures: There are multiple lytic bone lesions, consistent with metastatic disease or myeloma. IMPRESSION: 1. Extensive lytic bone disease, likely secondary to metastatic disease or myeloma. Further workup is advocated 2. No evidence of bowel obstruction. No evidence of free air. Normal appendix. 3. Small right pleural effusion 4. Scattered lymph nodes including the pericardial region, para esophageal region, and retroperitoneum at the upper limits of normal in size Electronically signed by: Naman Bowie M.D. 01/21/2017 1:37 PM Dictated Date/Time: 01/21/2017 1:21 PM Patient: LUIS PONCE Address1: [address] [facility] Rec: [id number] Address2: Acct ID: [id number] [facility] Zip: [place] [address] Date: 1945 Sex: F Room/Bed: [facility] Ref Phy: Wendy Chaves, C.R.N.P. SC: [id number] Att Phy: Narcisa Reese DO Report #: [id number] [place] Phy: Wendy Chaves C.R.N.PMarshal Test: TSCO Admit Phy: Narcisa Reese DO Timber Poisoner: AKILA Interpreting Phy: Naman Bowie M.D. Diagnosis: BACK PAIN, CHEST PAIN Ordering Phy: Mirta Dietrich Service Date: 01/22/17 Admit Date: 01/21/1709/27/17 MNE: PWRSCRIBE CONF: DICTATED BY: Naman Bowie M.D.]] CC: Mirta Dietrich Salman A., Wedny Flores, Tali Endcc: [~ rep ct add3]] MRI THE THORACIC SPINE WITHOUT AND WITH GADOLINIUM CLINICAL HISTORY: T6 compression fracture. Evaluate for metastatic disease. History of breast carcinoma COMPARISON STUDY: Chest CT dated 01/22/2016 FINDINGS: There are areas of marrow replacement involving nearly every visible vertebral body. The findings are consistent with widespread metastatic disease. There is mild vertebral body expansion at the C7, T1, and T6 levels with minor impingement on the anterior spinal canal. No intrinsic cord lesions are visualized. There is no current evidence of significant cord compression. Postcontrast images reveal no pathologic enhancing cord lesions. There is a small right pleural effusion. IMPRESSION: 1. Diffuse skeletal metastatic disease with involvement of nearly every cervical thoracic and lumbar vertebral body. 2. Mild posterior vertebral body expansion at the C7, T1 and T6 levels, with minor impingement on the anterior aspect of the spinal canal 3. No current evidence of significant cord compression Electronically signed by: Naman Bowie M.D. 01/23/2017 7:40 AM Dictated Date/Time: 01/23/2017 7:30 AM Treatment Options I discussed the following treatment options with Ms. Ponce. 1. The patient was initially diagnosed with a low-grade DCIS of the right breast in 2003. She now has evidence of widespread metastatic bony disease. The possibility of myeloma was also raised and blood studies were drawn to rule this out. The appearance on the scans however show mostly lytic but some mixed plastic changes which would likely be incompatible with a myeloma. After radiological review of all scans they felt this was most consistent with a metastatic breast cancer. There is a right axillary node which could theoretically be biopsied. 2. Primary histologic verification will need to be obtained prior to initiating systemic therapy per Dr. Tai. 3. Palliative radiation will likely be beneficial to encompass T6 and T9 or other sites as necessary for pain control. Assessment & Recommendations In summary Ms. Ponce is a 71-year-old female who underwent a biopsy in September 2003 of the right inferior breast. This was positive for a microinvasive ductal carcinoma Rodrigues Roche grade 1 of 3 with a low-grade DCIS without necrosis. Patient went on to have bilateral mastectomies in 2003. The left breast was benign. The right breast showed a low-grade DCIS with negative sentinel nodes. The patient has done well until recently. She does have multiple comorbidities. She recently presented with increasing back pain, chest pain and drooping of her face. She was found to have Green's palsy and Lyme's disease. She was treated with antibiotics and steroids. The steroids helped her back pain and the antibiotics upset her stomach. She has lost 20 pounds over the past several months. More recently the pain has been progressing and is located in the right flank and bilateral chest and in the lower back. There is no pain radiating down the legs. The pain was described as a 6 without medication that is improved to a 3 with pain medication. Patient denies any numbness or weakness. CT scans of the chest abdomen and pelvis showed evidence of widespread metastatic disease of the bone. This includes mostly lytic but some mixed blastic changes are appreciated. These are felt to be compatible with a metastatic disease or possibly myeloma. MRI of the thoracic spine also showed metastatic involvement of each vertebral body. Most prominent include C7, T1, T6, T9 and L4. There was no current evidence of significant cord compression although there was mild posterior vertebral body expansion causing minor impingement of the anterior aspect of the spinal canal. I met with the patient and her family and discussed potential palliative role of radiation. I stressed that it would be critical to identify the source of the cancer. Studies have been drawn to rule out possible myeloma. Although it would appear unlikely based on the pathologic findings at the time of the surgery in 2003 the appearance is certainly compatible with that of a metastatic breast cancer to bone. The patient has been seen by Dr. Frantz Tai who will evaluate her for systemic therapy. He also spoke with them about obtaining a clinical diagnosis as to tissue of origin. I spoke with them about the use of palliative radiation. I described the process of CT simulation as well as a brief discussion of the anticipated duration of palliative treatment. I spoke only briefly about potential risks and side effects. It appears the patient may be discharged over the weekend. I will coordinate care with Dr. Tai once the additional planned studies have been performed and interpreted. At that time we will discuss the role of palliative radiation to areas of pain. Presently these could include T6 and T9 as the primary source of pain although we will also need to follow L4. She appears to be fairly stable with pain medication so no emergent therapy will be required. Thank you for allowing us to participate in the care of this patient. This chart was completed in part utilizing [employer] Speech Voice Recognition software. Attempts were made to minimize the grammatical errors, random word insertions, pronoun errors and incomplete sentences. Any formal questions or concerns about the content, text or information contained within the body of this dictation should be directly addressed to the provider for clarification. Tavo Carpenter MD Department of Radiation Oncology [facility] Total Time In Consultation I spent 15 minutes in discussion of treatment options with the patient, 20 minutes reviewing her scans, discussion with her referring physicians and in preparation of this document. BETTINA I spent 20 minutes speaking to the patient and performing examination. I spent 15 minutes reviewing information in completing this note. AK Copy To Narcisa Reese, DO; Frantz Tai M.D.; Wendy Chaves, C.R.N.P.
[2017-01-23] MEDS: TRAMADOL HCL 50 MG TAB PO PRN (12:55)
[2017-01-23 15:41] VITALS: BP 166/80; PULSE 94; TEMP 36.7; O2SAT 92
--- NOTE | 2017-01-23 16:30 | Progress Note ---
Subjective Date of Service: Jan 23, 2017. 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 Status: Acute (5) Pleural effusion, right Status: Acute Review of Systems Constitutional: No fever, No chills Respiratory: No shortness of breath Cardiac: No chest pain Abdomen: No nausea, No vomiting Musculoskeletal: + joint pain (back pain, lateral rib pain) Medications Current Inpatient Medications Medications (Trade) Dose Ordered Sig/Abdirahman Route Start Time Stop Time Status Last Admin Dose Admin Ioversol (Optiray 320) 100 ml UD PRN IV 01/21/17 12:45 01/25/17 12:44 Enoxaparin Sodium (Lovenox Inj) 40 mg Q24H SQ 01/21/17 21:00 02/20/17 20:59 01/22/17 20:44 40 MG Acetaminophen (Tylenol Tab) 650 mg Q4H PRN PO 01/21/17 15:30 02/20/17 15:29 Al Hydrox/Mg Hydrox/Simethicone (Maalox Max Susp) 15 ml Q4H PRN PO 01/21/17 15:30 02/20/17 15:29 Magnesium Hydroxide (Milk Of Magnesia Susp) 30 ml Q6H PRN PO 01/21/17 15:30 02/20/17 15:29 01/23/17 08:24 30 ML Polyethylene (Miralax Powder Packet) 17 gm DAILY PRN PO 01/21/17 15:30 02/20/17 15:29 Ondansetron HCl (Zofran Inj) 4 mg Q6H PRN IV 01/21/17 15:30 02/20/17 15:29 Amitriptyline HCl (Elavil Tab) 100 mg HS PO 01/21/17 21:00 02/20/17 20:59 01/22/17 20:44 100 MG Diclofenac Sodium (Voltaren 1% Top Gel) 1 appln DAILY PRN EXT 01/21/17 15:30 02/20/17 15:29 Levothyroxine Sodium (Synthroid Tab) 25 mcg DAILYBB PO 01/22/17 06:30 02/21/17 06:29 01/23/17 06:07 25 MCG Cholecalciferol (Vitamin D Tab) 2,000 inter.unit QAM PO 01/22/17 08:00 02/21/17 08:59 01/23/17 08:17 2,000 INTER.UNIT Ferrous Sulfate (Feosol Tab) 325 mg MoWeFr@0900 PO 01/23/17 09:00 02/22/17 08:59 01/23/17 08:17 325 MG Pantoprazole Sodium (Protonix Tab) 40 mg QAM PO 01/22/17 08:00 02/21/17 08:59 01/23/17 08:17 40 MG Sodium Chloride 1,000 ml @ 80 mls/hr [id number] IV 01/21/17 15:30 02/20/17 15:29 01/23/17 05:06 80 MLS/HR Insulin Aspart (novoLOG ASPART) SLIDING SCALE G... ACHS SC 01/21/17 17:00 02/20/17 16:59 01/23/17 08:23 6 UNITS Insulin Glargine (Lantus Solostar Pen) 5 units BID SC 01/21/17 20:00 02/20/17 20:59 01/23/17 08:24 5 UNITS Glucose (Glucose 40% Gel) 15-30 GRAMS 15 GRAMS... UD PRN PO 01/21/17 17:00 02/20/17 16:59 Glucose (Glucose Chew Tab) 4-8 Tablets 4 Tabl... UD PRN PO 01/21/17 17:00 02/20/17 16:59 Dextrose (Dextrose 50% 50ML Syringe) 25-50ML OF 50% DW IV FOR... UD PRN IV 01/21/17 17:00 02/20/17 16:59 Glucagon (Glucagon Inj) 1 mg UD PRN SQ 01/21/17 17:00 02/20/17 16:59 Morphine Sulfate (MoRPHine SULFATE INJ) 2 mg Q4 PRN IV 01/22/17 11:45 02/05/17 11:44 01/23/17 15:02 2 MG Gadobutrol (Gadavist) 9 mmol UD PRN IV 01/23/17 00:30 01/27/17 00:29 Tramadol HCl (Ultram Tab) 100 mg Q8H PRN PO 01/23/17 08:45 02/20/17 15:29 01/23/17 12:55 100 MG Objective Vital Signs Date Time Temp Pulse Resp B/P (MAP) Pulse Ox O2 Delivery O2 Flow Rate FiO2 01/23/17 16:00 Room Air 01/23/17 15:41 36.7 94 20 166/80 (108) 92 01/23/17 11:31 36.8 104 18 146/83 (104) 93 Room Air 01/23/17 08:31 106 163/97 (119) 01/23/17 08:30 Room Air 01/23/17 07:47 36.8 101 20 160/100 (120) 94 01/23/17 03:44 36.6 97 18 154/90 (111) 92 Room Air 01/23/17 00:00 Room Air 01/22/17 22:59 36.6 97 18 169/93 (118) 92 Room Air 01/22/17 20:00 36.7 91 18 157/92 (113) 91 Room Air Physical Exam General Appearance: no apparent distress Respiratory/Chest: lungs clear, normal breath sounds, no respiratory distress, no accessory muscle use Cardiovascular: regular rate, rhythm, no edema, no murmur Abdomen: normal bowel sounds, non tender, soft Laboratory Results Last 24 Hours Test 01/22/17 16:59 01/22/17 19:50 01/23/17 05:34 01/23/17 07:44 Bedside Glucose 79 mg/dl 84 mg/dl 82 mg/dl White Blood Count 5.97 K/uL Red Blood Count 3.76 M/uL Hemoglobin 9.8 g/dL Hematocrit 32.3 % Mean Corpuscular Volume 85.9 fL Mean Corpuscular Hemoglobin 26.1 pg Mean Corpuscular Hemoglobin Concent 30.3 g/dl Platelet Count 303 K/uL Mean Platelet Volume 9.6 fL Neutrophils (%) (Auto) 61.0 % Lymphocytes (%) (Auto) 29.1 % Monocytes (%) (Auto) 5.2 % Eosinophils (%) (Auto) 4.2 % Basophils (%) (Auto) 0.2 % Neutrophils # (Auto) 3.64 K/uL Lymphocytes # (Auto) 1.74 K/uL Monocytes # (Auto) 0.31 K/uL Eosinophils # (Auto) 0.25 K/uL Basophils # (Auto) 0.01 K/uL RDW Standard Deviation 50.0 fL RDW Coefficient of Variation 16.1 % Immature Granulocyte % (Auto) 0.3 % Immature Granulocyte # (Auto) 0.02 K/uL Sodium Level 142 mmol/L Potassium Level 3.4 mmol/L Chloride Level 106 mmol/L Carbon Dioxide Level 26 mmol/L Anion Gap 10.0 mmol/L Blood Urea Nitrogen 12 mg/dl Creatinine 1.00 mg/dl Est Creatinine Clear Calc Drug Dose 57.9 ml/min Estimated GFR () 65.2 Estimated GFR (Non- 56.2 BUN/Creatinine Ratio 12.1 Random Glucose 73 mg/dl Calcium Level 8.7 mg/dl Magnesium Level 1.9 mg/dl Test 01/23/17 11:41 Bedside Glucose 79 mg/dl Assessment and Plan This is a 71 year old female with a PMH of breast CA s/p bilateral total mastectomy in 2003, DM2, hypothyroidism presents with back pain, rib pain and found to have possible metastatic lesions Metastatic Disease 01/23 appreciate orthopedic, radiation oncology and hem onc input on this matter severe metastatic disease, diffuse throughout the cervical, thoracic and lumbar spine concern about compression fracture and cord compression as per ortho radiation oncology suggests palliative radiation - after diagnosis is made labs are pending for possible multiple myeloma for now, she is receiving morphine PRN, intermittently with Tramadol PRN may add Fentanyl patch to try to decrease the use of IV pain medications 01/22 unknown primary; hx. of breast CA s/p total mastectomy abdominal and chest CT suggests possible lytic lesions to the spine and bilateral ribs appreciate ortho input, MRI of the spine with/without contrast pending hem-onc consulted for further input she has had colonoscopy about 4 years prior with no findings; has had b/l salpingo-oophorectomy previous smoker about 10 years prior; quit around 2006 for now, we will use morphine and tramadol PRN for pain DM2 will try Lantus 5 units BID sliding scale monitor BSGs Hypothyroidism continue Synthroid DVT ppx Lovenox FULL CODE
[2017-01-23] MEDS ORDERED: LORAZEPAM 2 MG/ML 1 ML VIAL ONE (16:55)
[2017-01-23] MEDS ORDERED: LORAZEPAM 2 MG/ML 1 ML VIAL IV ONE (17:00)
[2017-01-23 20:32] VITALS: BP 161/90; PULSE 99; TEMP 36.7; O2SAT 90
[2017-01-23] MEDS: AMITRIPTYLINE HCL 100 MG TAB PO SCH (21:11)
[2017-01-23] MEDS: ENOXAPARIN 40 MG/0.4 ML SYR SQ SCH (21:11)
--- NOTE | 2017-01-23 22:39 | DIAGNOSTIC IMAGING REPORT ---
LUMBAR SPINE COMBINATION CLINICAL HISTORY: 71 years-old Female with acute back pain with history of multiple sclerosis and breast cancer. History of lytic metastasis. COMPARISON: CT abdomen and pelvis 01/21/2017, thoracic spine MR of same day TECHNIQUE: Multiplanar, multi sequence MRI of the lumbar spine was performed both with and without the use of 9 mL Gadavist. FINDINGS: There is convex right curvature of the lumbar spine. No acute intra-abdominal, intrapelvic or paraspinal abnormality identified. Diffuse metastasis are again seen throughout the thoracolumbar spine and imaged pelvis demonstrating associated heterogeneous T1 and T2 signal with avid enhancement. No significant bone marrow edema. Metastatic lesions within the L2 vertebral body cause vertebral body expansion with 5 mm retropulsion resulting in [id number] central canal stenosis. Signal within the cord is within normal limits. Metastatic lesion involves the spinous process of L3 with enhancement. T12-L1: Small disc bulge without central canal or foraminal narrowing. Mild facet arthropathy. L1-L2: Moderate intervertebral disc space narrowing and moderate facet arthropathy. Expansion of the L2 vertebral body with retropulsion as described above. Mild to moderate central canal and moderate left foraminal narrowing. Right foramen is patent. L2-L3: Moderate intervertebral disc space narrowing with broad-based posterior disc bulge, posterior spondylitic spurring, moderate facet arthropathy and small facet effusions. Enhancing metastatic lesion noted within the right facet. Mild central canal, moderate to severe left and right foraminal narrowing. L3-L4: Severe intervertebral disc space narrowing with posterior spondylitic spurring and circumferential annular disc bulge favoring the left foramen. Moderate facet arthropathy and ligamentum flavum thickening. Metastasis involves the left facet. Central canal is patent. Moderate left foraminal narrowing. Right foramen is patent. L4-L5: Moderate intervertebral disc space narrowing with broad-based posterior disc bulge, severe facet arthropathy and ligamentum flavum redundancy. Mild central canal, moderate right and mild left foraminal stenosis. L5-S1: Mild intervertebral disc space narrowing with posterior spondylitic spurring and broad-based posterior disc bulge with severe facet arthropathy. No central canal narrowing. There is mild to moderate right foraminal stenosis. Left foramen is patent. IMPRESSION: 1. Diffuse metastasis of the spine and pelvis with tumor expansion of the L2 vertebral body extending 5 mm posteriorly causing mild to moderate central canal stenosis. 2. Multilevel discogenic degenerative changes and facet arthropathy as above result in varying degrees of central canal and foraminal narrowing. 3. No evidence of high-grade central canal stenosis. The above report was generated using voice recognition software. It may contain grammatical, syntax or spelling errors. Electronically signed by: Jsu Burks M.D. 01/23/2017 10:38 PM Dictated Date/Time: 01/23/2017 10:28 PM
--- NOTE | 2017-01-23 22:54 | DIAGNOSTIC IMAGING REPORT ---
CERVICAL SPINE COMBO HISTORY: 71 years-old Female r/o mets history of breast cancer. Multiple lytic metastasis seen on comparison CT and thoracic spine MR COMPARISON: Thoracic spine MR 01/22/2017 TECHNIQUE: Multiplanar multisequence MRI of the cervical spine was obtained both with and without the use of 9 mL Gadavist. FINDINGS: Innumerable enhancing skeletal metastasis are noted throughout the cervical spine. The study is moderately limited secondary to motion artifact. Tumor expansion of the T1 vertebral body is again noted which extends 5 mm posteriorly causing mild to moderate central canal narrowing. There is also bony expansion of the C2 and C3 vertebral bodies with mild central canal stenosis also seen at these levels. There is extensive bone marrow edema throughout the vertebral bodies and posterior elements. No acute pathologic fracture identified. Imaged posterior fossa structures are unremarkable. C2-C3: Severe intervertebral disc space narrowing and facet arthropathy with mild central canal stenosis. No high-grade neuroforaminal narrowing. C3-C4: Severe intervertebral disc space narrowing with uncovertebral spurring and facet arthropathy. Mild to moderate central canal narrowing. Bilateral foramen are generally patent. C4-C5: Moderate intervertebral disc space narrowing and moderate facet arthropathy. There is mild central canal and mild bilateral foraminal narrowing. C5-C6: Broad-based posterior disc bulge with moderate facet arthropathy. There is mild central canal and mild left foraminal narrowing. No significant right foraminal narrowing. C6-C7: Moderate to severe intervertebral disc space narrowing with small broad-based posterior disc bulge and moderate facet arthropathy. No significant central canal or foraminal narrowing. C7-T1: No central canal or foraminal narrowing. IMPRESSION: 1. Innumerable enhancing skeletal metastasis throughout the cervical and imaged thoracic spine without high-grade central canal stenosis identified. 2. Tumor expansion of the T1 vertebral body extends 5 mm posteriorly causing mild to moderate central canal stenosis. 3. Multilevel discogenic degeneration and facet arthropathy as above, most pronounced at C5-C6 where there is mild central canal and mild bilateral foraminal narrowing. The above report was generated using voice recognition software. It may contain grammatical, syntax or spelling errors. Electronically signed by: Jus Burks M.D. 01/23/2017 10:53 PM Dictated Date/Time: 01/23/2017 10:45 PM
[2017-01-24 00:24] VITALS: BP 156/88; PULSE 97; TEMP 36.6; O2SAT 92
[2017-01-24] MEDS: MoRPHine SULFATE 2 MG/ML CARP IV PRN ×2 (00:26→06:02)
[2017-01-24] MEDS: MAGNESIUM HYDROXIDE SUSP 30 ML UDC PO PRN ×3 (00:59→17:34)
[2017-01-24 04:09] VITALS: BP 145/81; PULSE 90; TEMP 36.8; O2SAT 92
[2017-01-24] MEDS: LEVOTHYROXINE 25 MCG TAB PO SCH (05:45)
[2017-01-24] MEDS: SODIUM CHLORIDE 0.9% 1000ML 1,000 ML IV SCH ×2 (05:45→16:23)
[2017-01-24 06:12] LABS: BASO % 0.2 %; BASO ABS # 0.01 K/uL (0-0.2); COMPLETE YES; EOS % 4.7 %; HEMATOCRIT 30.5 % (37-47); IG% 0.2 %; LYMPH % 32.8 %; LYMPH ABS # 1.81 K/uL (1.2-3.4); MEAN CELL VOLUME 85.4 fL (80-100); MEAN CORPUSCULAR HEMOGLOBIN 26.6 pg (25-34); MEAN CORPUSCULAR HGB CONC 31.1 g/dl (32-36); MEAN PLATELET VOLUME 9.5 fL (7.4-10.4); MONO % 6.7 %; NEUT % 55.4 %; PLATELET COUNT 282 K/uL (130-400); RED BLOOD COUNT 3.57 M/uL (4.2-5.4); WHITE BLOOD COUNT 5.52 K/uL (4.8-10.8)
[2017-01-24 06:42] LABS: BUN/CREATININE RATIO 9.7 (10-20); CREATININE 1.1 mg/dl (0.60-1.20); POTASSIUM 3.7 mmol/L (3.5-5.1)
[2017-01-24] MEDS: CHOLECALCIFEROL 1000 INTER.UNIT TAB PO SCH (08:54)
[2017-01-24] MEDS: PANTOprazole SOD 40 MG TAB PO SCH (08:54)
[2017-01-24] MEDS: INSULIN GLARGINE SOLOSTAR 100 UNITS/ML 3 ML PEN SC SCH ×2 (08:56→22:06)
[2017-01-24] MEDS: INSULIN ASPART 100 UNITS/ML 3 ML PEN SC SCH ×4 (08:56→21:59)
[2017-01-24] MEDS: POLYETHYLENE (MIRALAX) 17 GM PACK PO PRN (08:56)
[2017-01-24] MEDS ORDERED: BISACODYL 5 MG TABEC PO ONE (10:15)
[2017-01-24] MEDS ORDERED: BISACODYL 5 MG TABEC PO PRN (10:15)
[2017-01-24] MEDS ORDERED: DOCUSATE SODIUM 100 MG CAP PO ONE (10:15)
[2017-01-24 11:03] VITALS: BP 152/84; PULSE 94; TEMP 36.6; O2SAT 89
[2017-01-24] MEDS: TRAMADOL HCL 50 MG TAB PO PRN ×2 (12:56→22:06)
[2017-01-24] MEDS ORDERED: FENTANYL 12 MCG/HR TDSY TD SCH (13:00)
--- NOTE | 2017-01-24 14:52 | Progress Note ---
Subjective Date of Service: Jan 24, 2017. 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 Status: Acute (5) Pleural effusion, right Status: Acute Review of Systems Respiratory: No cough, No sputum, No shortness of breath Cardiac: No chest pain Musculoskeletal: + joint pain (controlled with pain medications) Medications Current Inpatient Medications Medications (Trade) Dose Ordered Sig/Abdirahman Route Start Time Stop Time Status Last Admin Dose Admin Ioversol (Optiray 320) 100 ml UD PRN IV 01/21/17 12:45 01/25/17 12:44 Enoxaparin Sodium (Lovenox Inj) 40 mg Q24H SQ 01/21/17 21:00 02/20/17 20:59 01/23/17 21:11 40 MG Acetaminophen (Tylenol Tab) 650 mg Q4H PRN PO 01/21/17 15:30 02/20/17 15:29 Al Hydrox/Mg Hydrox/Simethicone (Maalox Max Susp) 15 ml Q4H PRN PO 01/21/17 15:30 02/20/17 15:29 01/24/17 08:56 15 ML Magnesium Hydroxide (Milk Of Magnesia Susp) 30 ml Q6H PRN PO 01/21/17 15:30 02/20/17 15:29 01/24/17 08:56 30 ML Polyethylene (Miralax Powder Packet) 17 gm DAILY PRN PO 01/21/17 15:30 02/20/17 15:29 01/24/17 08:56 17 GM Ondansetron HCl (Zofran Inj) 4 mg Q6H PRN IV 01/21/17 15:30 02/20/17 15:29 Amitriptyline HCl (Elavil Tab) 100 mg HS PO 01/21/17 21:00 02/20/17 20:59 01/23/17 21:11 100 MG Diclofenac Sodium (Voltaren 1% Top Gel) 1 appln DAILY PRN EXT 01/21/17 15:30 02/20/17 15:29 Levothyroxine Sodium (Synthroid Tab) 25 mcg DAILYBB PO 01/22/17 06:30 02/21/17 06:29 01/24/17 05:45 25 MCG Cholecalciferol (Vitamin D Tab) 2,000 inter.unit QAM PO 01/22/17 08:00 02/21/17 08:59 01/24/17 08:54 2,000 INTER.UNIT Ferrous Sulfate (Feosol Tab) 325 mg MoWeFr@0900 PO 01/23/17 09:00 02/22/17 08:59 01/23/17 08:17 325 MG Pantoprazole Sodium (Protonix Tab) 40 mg QAM PO 01/22/17 08:00 02/21/17 08:59 01/24/17 08:54 40 MG Sodium Chloride 1,000 ml @ 80 mls/hr [id number] IV 01/21/17 15:30 02/20/17 15:29 01/24/17 05:45 80 MLS/HR Insulin Aspart (novoLOG ASPART) SLIDING SCALE G... ACHS SC 01/21/17 17:00 02/20/17 16:59 01/24/17 13:02 4 UNITS Insulin Glargine (Lantus Solostar Pen) 5 units BID SC 01/21/17 20:00 02/20/17 20:59 01/24/17 08:56 5 UNITS Glucose (Glucose 40% Gel) 15-30 GRAMS 15 GRAMS... UD PRN PO 01/21/17 17:00 02/20/17 16:59 Glucose (Glucose Chew Tab) 4-8 Tablets 4 Tabl... UD PRN PO 01/21/17 17:00 02/20/17 16:59 Dextrose (Dextrose 50% 50ML Syringe) 25-50ML OF 50% DW IV FOR... UD PRN IV 01/21/17 17:00 02/20/17 16:59 Glucagon (Glucagon Inj) 1 mg UD PRN SQ 01/21/17 17:00 02/20/17 16:59 Gadobutrol (Gadavist) 9 mmol UD PRN IV 01/23/17 00:30 01/27/17 00:29 Tramadol HCl (Ultram Tab) 100 mg Q8H PRN PO 01/23/17 08:45 02/20/17 15:29 01/24/17 12:56 100 MG Gadobutrol (Gadavist) 9 mmol UD PRN IV 01/23/17 18:15 01/27/17 18:14 Docusate Sodium (coLACE CAP) 100 mg BID PO 01/24/17 20:00 02/23/17 19:59 Bisacodyl (Dulcolax Tab) 5 mg DAILY PRN PO 01/24/17 10:15 02/23/17 10:14 Senna (Senokot Tab) 8.6 mg QAM PO 01/25/17 08:00 02/24/17 07:59 Morphine Sulfate (MoRPHine SULFATE INJ) 1 mg Q4 PRN IV 01/24/17 12:45 02/05/17 11:44 Fentanyl (Duragesic Patch) 12 mcg Q72H TD 01/24/17 13:00 02/07/17 12:59 Miscellaneous (Fentanyl Patch Remove & Waste) 1 ea Q3D N/A 01/27/17 12:59 02/26/17 12:58 Miscellaneous Information (Check Fentanyl Patch Placement) 1 ea QS N/A 01/24/17 16:00 02/23/17 15:59 Objective Vital Signs Date Time Temp Pulse Resp B/P (MAP) Pulse Ox O2 Delivery O2 Flow Rate FiO2 01/24/17 11:03 36.6 94 20 152/84 (106) 89 Room Air 01/24/17 10:00 Room Air 01/24/17 04:09 36.8 90 20 145/81 (102) 92 Room Air 01/24/17 00:24 36.6 97 20 156/88 (110) 92 Room Air 01/24/17 00:00 Room Air 01/23/17 20:32 36.7 99 18 161/90 (113) 90 Room Air 01/23/17 16:00 Room Air 01/23/17 15:41 36.7 94 20 166/80 (108) 92 Physical Exam General Appearance: no apparent distress Respiratory/Chest: lungs clear, normal breath sounds, no respiratory distress, no accessory muscle use Cardiovascular: regular rate, rhythm, no edema, no murmur Abdomen: normal bowel sounds, non tender, soft Extremities: normal inspection, no pedal edema Laboratory Results Last 24 Hours Test 01/23/17 16:35 01/23/17 20:29 01/24/17 05:53 01/24/17 07:24 Bedside Glucose 96 mg/dl 134 mg/dl 103 mg/dl White Blood Count 5.52 K/uL Red Blood Count 3.57 M/uL Hemoglobin 9.5 g/dL Hematocrit 30.5 % Mean Corpuscular Volume 85.4 fL Mean Corpuscular Hemoglobin 26.6 pg Mean Corpuscular Hemoglobin Concent 31.1 g/dl Platelet Count 282 K/uL Mean Platelet Volume 9.5 fL Neutrophils (%) (Auto) 55.4 % Lymphocytes (%) (Auto) 32.8 % Monocytes (%) (Auto) 6.7 % Eosinophils (%) (Auto) 4.7 % Basophils (%) (Auto) 0.2 % Neutrophils # (Auto) 3.06 K/uL Lymphocytes # (Auto) 1.81 K/uL Monocytes # (Auto) 0.37 K/uL Eosinophils # (Auto) 0.26 K/uL Basophils # (Auto) 0.01 K/uL RDW Standard Deviation 50.5 fL RDW Coefficient of Variation 16.1 % Immature Granulocyte % (Auto) 0.2 % Immature Granulocyte # (Auto) 0.01 K/uL Sodium Level 141 mmol/L Potassium Level 3.7 mmol/L Chloride Level 104 mmol/L Carbon Dioxide Level 29 mmol/L Anion Gap 8.0 mmol/L Blood Urea Nitrogen 11 mg/dl Creatinine 1.10 mg/dl Est Creatinine Clear Calc Drug Dose 52.6 ml/min Estimated GFR () 58.1 Estimated GFR (Non- 50.1 BUN/Creatinine Ratio 9.7 Random Glucose 94 mg/dl Calcium Level 9.0 mg/dl Magnesium Level 2.0 mg/dl Test 01/24/17 11:47 Bedside Glucose 122 mg/dl Assessment and Plan This is a 71 year old female with a PMH of breast CA s/p bilateral total mastectomy in 2003, DM2, hypothyroidism presents with back pain, rib pain and found to have possible metastatic lesions Metastatic Disease 01/24 will decrease morphine dose today added fentanyl patch will take care of pain possible discharge vs. transfer to tertiary center if concern about cord compression/compression fractures 01/23 appreciate orthopedic, radiation oncology and hem onc input on this matter severe metastatic disease, diffuse throughout the cervical, thoracic and lumbar spine concern about compression fracture and cord compression as per ortho radiation oncology suggests palliative radiation - after diagnosis is made labs are pending for possible multiple myeloma for now, she is receiving morphine PRN, intermittently with Tramadol PRN may add Fentanyl patch to try to decrease the use of IV pain medications 01/22 unknown primary; hx. of breast CA s/p total mastectomy abdominal and chest CT suggests possible lytic lesions to the spine and bilateral ribs appreciate ortho input, MRI of the spine with/without contrast pending hem-onc consulted for further input she has had colonoscopy about 4 years prior with no findings; has had b/l salpingo-oophorectomy previous smoker about 10 years prior; quit around 2006 for now, we will use morphine and tramadol PRN for pain DM2 will try Lantus 5 units BID sliding scale monitor BSGs Hypothyroidism continue Synthroid DVT ppx Lovenox FULL CODE
--- NOTE | 2017-01-24 16:07 | DIAGNOSTIC IMAGING REPORT ---
CHEST ONE VIEW PORTABLE CLINICAL HISTORY: 71 years-old Female presenting with hypoxia. TECHNIQUE: Portable upright AP view of the chest was obtained. COMPARISON: 01/21/2017. FINDINGS: Mildly low lung volumes with hypoventilatory changes. Atherosclerosis and mild tortuosity of the descending thoracic aorta. Cardiac silhouette normal in size. Vague bibasilar opacities not significantly changed from prior. Small right pleural effusions suspected. No pneumothorax. Osseous structures normal. Cholecystectomy clips. IMPRESSION: 1. Vague bibasilar opacities, possibly atelectasis. 2. Small right pleural effusion. Electronically signed by: Ian Sepulveda M.D. 01/24/2017 4:06 PM Dictated Date/Time: 01/24/2017 4:05 PM
[2017-01-24] MEDS: CHECK FENTANYL PATCH PLACEMENT SCH (16:23)
[2017-01-24 19:20] VITALS: BP 139/81; PULSE 90; TEMP 36.5; O2SAT 93
[2017-01-24] MEDS: DOCUSATE SODIUM 100 MG CAP PO SCH (21:58)
[2017-01-24] MEDS: AMITRIPTYLINE HCL 100 MG TAB PO SCH (21:58)
[2017-01-24] MEDS: ENOXAPARIN 40 MG/0.4 ML SYR SQ SCH (21:59)
[2017-01-24 23:42] VITALS: BP 148/83; PULSE 84; TEMP 36.6; O2SAT 94
[2017-01-25] MEDS: CHECK FENTANYL PATCH PLACEMENT SCH ×3 (00:14→14:23)
[2017-01-25 03:43] VITALS: BP 164/90; PULSE 90; TEMP 36.5; O2SAT 94
[2017-01-25] MEDS: MoRPHine SULFATE 2 MG/ML CARP IV PRN ×3 (04:03→17:51)
[2017-01-25] MEDS: SODIUM CHLORIDE 0.9% 1000ML 1,000 ML IV SCH ×2 (04:58→17:49)
[2017-01-25] MEDS: LEVOTHYROXINE 25 MCG TAB PO SCH (06:08)
[2017-01-25] MEDS: INSULIN ASPART 100 UNITS/ML 3 ML PEN SC SCH ×4 (06:30→21:00)
[2017-01-25 06:37] LABS: HEMATOCRIT 30.8 % (37-47); MEAN CELL VOLUME 86.3 fL (80-100); MEAN CORPUSCULAR HEMOGLOBIN 26.9 pg (25-34); MEAN CORPUSCULAR HGB CONC 31.2 g/dl (32-36); MEAN PLATELET VOLUME 9.8 fL (7.4-10.4); PLATELET COUNT 256 K/uL (130-400); RED BLOOD COUNT 3.57 M/uL (4.2-5.4); WHITE BLOOD COUNT 4.99 K/uL (4.8-10.8)
[2017-01-25 07:04] LABS: BUN/CREATININE RATIO 11.3 (10-20); CALCIUM 8.9 mg/dl (8.5-10.1); CREATININE 1.1 mg/dl (0.60-1.20); POTASSIUM 3.9 mmol/L (3.5-5.1)
[2017-01-25] MEDS: PANTOprazole SOD 40 MG TAB PO SCH (07:32)
[2017-01-25] MEDS: DOCUSATE SODIUM 100 MG CAP PO SCH ×2 (07:33→20:33)
[2017-01-25] MEDS: CHOLECALCIFEROL 1000 INTER.UNIT TAB PO SCH (07:33)
[2017-01-25] MEDS: SENNA 8.6 MG TAB PO SCH (07:33)
[2017-01-25 08:29] VITALS: BP 155/91; PULSE 90; TEMP 36.6; O2SAT 94
[2017-01-25] MEDS: INSULIN GLARGINE SOLOSTAR 100 UNITS/ML 3 ML PEN SC SCH ×2 (09:11→20:00)
--- NOTE | 2017-01-25 11:16 | Progress Note ---
Subjective Date of Service: Jan 25, 2017. 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 Status: Acute (5) Pleural effusion, right Status: Acute Review of Systems Respiratory: No shortness of breath Cardiac: No chest pain Abdomen: No pain, No nausea, No vomiting, No diarrhea, No constipation Musculoskeletal: + joint pain Medications Current Inpatient Medications Medications (Trade) Dose Ordered Sig/Abdirahman Route Start Time Stop Time Status Last Admin Dose Admin Ioversol (Optiray 320) 100 ml UD PRN IV 01/21/17 12:45 01/25/17 12:44 Enoxaparin Sodium (Lovenox Inj) 40 mg Q24H SQ 01/21/17 21:00 02/20/17 20:59 01/24/17 21:59 40 MG Acetaminophen (Tylenol Tab) 650 mg Q4H PRN PO 01/21/17 15:30 02/20/17 15:29 Al Hydrox/Mg Hydrox/Simethicone (Maalox Max Susp) 15 ml Q4H PRN PO 01/21/17 15:30 02/20/17 15:29 01/24/17 08:56 15 ML Magnesium Hydroxide (Milk Of Magnesia Susp) 30 ml Q6H PRN PO 01/21/17 15:30 02/20/17 15:29 01/24/17 17:34 30 ML Polyethylene (Miralax Powder Packet) 17 gm DAILY PRN PO 01/21/17 15:30 02/20/17 15:29 01/24/17 08:56 17 GM Ondansetron HCl (Zofran Inj) 4 mg Q6H PRN IV 01/21/17 15:30 02/20/17 15:29 Amitriptyline HCl (Elavil Tab) 100 mg HS PO 01/21/17 21:00 02/20/17 20:59 01/24/17 21:58 100 MG Diclofenac Sodium (Voltaren 1% Top Gel) 1 appln DAILY PRN EXT 01/21/17 15:30 02/20/17 15:29 Levothyroxine Sodium (Synthroid Tab) 25 mcg DAILYBB PO 01/22/17 06:30 02/21/17 06:29 01/25/17 06:08 25 MCG Cholecalciferol (Vitamin D Tab) 2,000 inter.unit QAM PO 01/22/17 08:00 02/21/17 08:59 01/25/17 07:33 2,000 INTER.UNIT Ferrous Sulfate (Feosol Tab) 325 mg MoWeFr@0900 PO 01/23/17 09:00 02/22/17 08:59 01/23/17 08:17 325 MG Pantoprazole Sodium (Protonix Tab) 40 mg QAM PO 01/22/17 08:00 02/21/17 08:59 01/25/17 07:32 40 MG Sodium Chloride 1,000 ml @ 80 mls/hr [id number] IV 01/21/17 15:30 02/20/17 15:29 01/25/17 04:58 80 MLS/HR Insulin Aspart (novoLOG ASPART) SLIDING SCALE G... ACHS SC 01/21/17 17:00 02/20/17 16:59 01/24/17 17:31 2 UNITS Insulin Glargine (Lantus Solostar Pen) 5 units BID SC 01/21/17 20:00 02/20/17 20:59 01/25/17 09:11 5 UNITS Glucose (Glucose 40% Gel) 15-30 GRAMS 15 GRAMS... UD PRN PO 01/21/17 17:00 02/20/17 16:59 Glucose (Glucose Chew Tab) 4-8 Tablets 4 Tabl... UD PRN PO 01/21/17 17:00 02/20/17 16:59 Dextrose (Dextrose 50% 50ML Syringe) 25-50ML OF 50% DW IV FOR... UD PRN IV 01/21/17 17:00 02/20/17 16:59 Glucagon (Glucagon Inj) 1 mg UD PRN SQ 01/21/17 17:00 02/20/17 16:59 Gadobutrol (Gadavist) 9 mmol UD PRN IV 01/23/17 00:30 01/27/17 00:29 Tramadol HCl (Ultram Tab) 100 mg Q8H PRN PO 01/23/17 08:45 02/20/17 15:29 01/24/17 22:06 100 MG Gadobutrol (Gadavist) 9 mmol UD PRN IV 01/23/17 18:15 01/27/17 18:14 Docusate Sodium (coLACE CAP) 100 mg BID PO 01/24/17 20:00 02/23/17 19:59 01/25/17 07:33 100 MG Bisacodyl (Dulcolax Tab) 5 mg DAILY PRN PO 01/24/17 10:15 02/23/17 10:14 Senna (Senokot Tab) 8.6 mg QAM PO 01/25/17 08:00 02/24/17 07:59 01/25/17 07:33 8.6 MG Morphine Sulfate (MoRPHine SULFATE INJ) 1 mg Q4 PRN IV 01/24/17 12:45 02/05/17 11:44 01/25/17 04:03 1 MG Fentanyl (Duragesic Patch) 12 mcg Q72H TD 01/24/17 13:00 02/07/17 12:59 01/24/17 16:23 12 MCG Miscellaneous (Fentanyl Patch Remove & Waste) 1 ea Q3D N/A 01/27/17 12:59 02/26/17 12:58 Miscellaneous Information (Check Fentanyl Patch Placement) 1 ea QS N/A 01/24/17 16:00 02/23/17 15:59 01/25/17 07:20 1 EA Objective Vital Signs Date Time Temp Pulse Resp B/P (MAP) Pulse Ox O2 Delivery O2 Flow Rate FiO2 01/25/17 08:29 36.6 90 16 155/91 (112) 94 Room Air 01/25/17 08:00 Nasal Cannula 1.0 01/25/17 03:43 36.5 90 20 164/90 (114) 94 Room Air 01/25/17 00:00 Nasal Cannula 1.0 01/24/17 23:42 36.6 84 18 148/83 (104) 94 Nasal Cannula 1.0 01/24/17 20:00 Nasal Cannula 2.0 01/24/17 19:20 36.5 90 20 139/81 (100) 93 Nasal Cannula 1.0 01/24/17 15:25 Nasal Cannula 2.0 Physical Exam General Appearance: no apparent distress Respiratory/Chest: lungs clear, normal breath sounds, no respiratory distress, no accessory muscle use Cardiovascular: regular rate, rhythm, no edema, no murmur Neurologic/Psychiatric: + pertinent finding (painful ROM of back) Laboratory Results Last 24 Hours Test 01/24/17 11:47 01/24/17 17:11 01/24/17 20:31 01/25/17 06:04 Bedside Glucose 122 mg/dl 85 mg/dl 86 mg/dl White Blood Count 4.99 K/uL Red Blood Count 3.57 M/uL Hemoglobin 9.6 g/dL Hematocrit 30.8 % Mean Corpuscular Volume 86.3 fL Mean Corpuscular Hemoglobin 26.9 pg Mean Corpuscular Hemoglobin Concent 31.2 g/dl RDW Standard Deviation 50.9 fL RDW Coefficient of Variation 16.1 % Platelet Count 256 K/uL Mean Platelet Volume 9.8 fL Sodium Level 140 mmol/L Potassium Level 3.9 mmol/L Chloride Level 104 mmol/L Carbon Dioxide Level 29 mmol/L Anion Gap 7.0 mmol/L Blood Urea Nitrogen 12 mg/dl Creatinine 1.10 mg/dl Est Creatinine Clear Calc Drug Dose 53.3 ml/min Estimated GFR () 58.1 Estimated GFR (Non- 50.1 BUN/Creatinine Ratio 11.3 Random Glucose 84 mg/dl Calcium Level 8.9 mg/dl Test 01/25/17 07:56 Bedside Glucose 89 mg/dl Assessment and Plan This is a 71 year old female with a PMH of breast CA s/p bilateral total mastectomy in 2003, DM2, hypothyroidism presents with back pain, rib pain and found to have possible metastatic lesions Metastatic Disease 01/25 added Fentanyl patch continue bowel regimen will attempt to wean off of morphine possible discharge vs. transfer to tertiary center if concern about cord compression/compression fractures - will need ortho, hem/onc, rad-onc input 01/24 will decrease morphine dose today added fentanyl patch will take care of pain possible discharge vs. transfer to tertiary center if concern about cord compression/compression fractures 01/23 appreciate orthopedic, radiation oncology and hem onc input on this matter severe metastatic disease, diffuse throughout the cervical, thoracic and lumbar spine concern about compression fracture and cord compression as per ortho radiation oncology suggests palliative radiation - after diagnosis is made labs are pending for possible multiple myeloma for now, she is receiving morphine PRN, intermittently with Tramadol PRN may add Fentanyl patch to try to decrease the use of IV pain medications 01/22 unknown primary; hx. of breast CA s/p total mastectomy abdominal and chest CT suggests possible lytic lesions to the spine and bilateral ribs appreciate ortho input, MRI of the spine with/without contrast pending hem-onc consulted for further input she has had colonoscopy about 4 years prior with no findings; has had b/l salpingo-oophorectomy previous smoker about 10 years prior; quit around 2006 for now, we will use morphine and tramadol PRN for pain DM2 will try Lantus 5 units BID sliding scale monitor BSGs Hypothyroidism continue Synthroid DVT ppx Lovenox FULL CODE
[2017-01-25 12:06] VITALS: BP 150/90; PULSE 89; TEMP 36.5; O2SAT 93
[2017-01-25] MEDS: TRAMADOL HCL 50 MG TAB PO PRN (13:55)
[2017-01-25 16:35] VITALS: BP 153/91; PULSE 89; TEMP 36.6; O2SAT 95
[2017-01-25] MEDS: AMITRIPTYLINE HCL 100 MG TAB PO SCH (20:33)
[2017-01-25] MEDS: ENOXAPARIN 40 MG/0.4 ML SYR SQ SCH (20:34)
[2017-01-25] MEDS: MAGNESIUM HYDROXIDE SUSP 30 ML UDC PO PRN (20:34)
[2017-01-25 20:55] VITALS: BP 154/83; PULSE 93; TEMP 36.6
[2017-01-26 00:05] VITALS: BP 130/75; PULSE 91; TEMP 36.6; O2SAT 92
[2017-01-26] MEDS: CHECK FENTANYL PATCH PLACEMENT SCH ×4 (00:25→23:43)
[2017-01-26] MEDS: TRAMADOL HCL 50 MG TAB PO PRN (00:31)
[2017-01-26 04:21] VITALS: BP 153/79; PULSE 87; TEMP 36.5; O2SAT 94
[2017-01-26] MEDS: LEVOTHYROXINE 25 MCG TAB PO SCH (06:11)
[2017-01-26] MEDS: MoRPHine SULFATE 2 MG/ML CARP IV PRN ×2 (06:23→19:21)
[2017-01-26] MEDS: SODIUM CHLORIDE 0.9% 1000ML 1,000 ML IV SCH ×2 (06:53→18:57)
[2017-01-26 07:11] LABS: HEMATOCRIT 31.3 % (37-47); MEAN CELL VOLUME 86.5 fL (80-100); MEAN CORPUSCULAR HEMOGLOBIN 27.1 pg (25-34); MEAN CORPUSCULAR HGB CONC 31.3 g/dl (32-36); PLATELET COUNT 281 K/uL (130-400); RED BLOOD COUNT 3.62 M/uL (4.2-5.4); WHITE BLOOD COUNT 5.02 K/uL (4.8-10.8)
[2017-01-26 07:39] LABS: BUN/CREATININE RATIO 11.9 (10-20); CALCIUM 9.3 mg/dl (8.5-10.1); CREATININE 1.1 mg/dl (0.60-1.20); POTASSIUM 3.8 mmol/L (3.5-5.1)
[2017-01-26 07:54] VITALS: BP 139/81; PULSE 88; TEMP 36.4; O2SAT 93
[2017-01-26] MEDS: CHOLECALCIFEROL 1000 INTER.UNIT TAB PO SCH (08:22)
[2017-01-26] MEDS: PANTOprazole SOD 40 MG TAB PO SCH (08:22)
[2017-01-26] MEDS: SENNA 8.6 MG TAB PO SCH (08:22)
[2017-01-26] MEDS: FERROUS SULFATE 325 MG TAB PO SCH (08:22)
[2017-01-26] MEDS: DOCUSATE SODIUM 100 MG CAP PO SCH ×2 (08:22→20:38)
[2017-01-26] MEDS: INSULIN ASPART 100 UNITS/ML 3 ML PEN SC SCH ×4 (08:23→20:39)
[2017-01-26] MEDS: INSULIN GLARGINE SOLOSTAR 100 UNITS/ML 3 ML PEN SC SCH ×2 (08:24→20:41)
[2017-01-26 11:03] VITALS: BP 127/79; PULSE 87; TEMP 36.6; O2SAT 96
[2017-01-26 15:00] LABS: ALBUMIN 3.2 G/DL (3.8-4.8); FREE KAPPA 28.6 MG/L (3.3-19.4); FREE KAPPA/LAMBDA RATIO 1.14 (0.26-1.65); TOTAL PROTEIN 6.2 G/DL (6.2-8.3)
[2017-01-26] MEDS: HYDROCODONE/ACETAMOPHEN 5/325MG TAB PO PRN (15:54)
--- NOTE | 2017-01-26 16:57 | Progress Note ---
Subjective Date of Service: Jan 26, 2017. 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 Status: Acute (5) Pleural effusion, right Status: Acute Review of Systems Abdomen: No pain, No nausea, No vomiting, No diarrhea Musculoskeletal: + joint pain (back pain, rib pain; improved with medications) Medications Current Inpatient Medications Medications (Trade) Dose Ordered Sig/Abdirahman Route Start Time Stop Time Status Last Admin Dose Admin Enoxaparin Sodium (Lovenox Inj) 40 mg Q24H SQ 01/21/17 21:00 02/20/17 20:59 01/25/17 20:34 40 MG Acetaminophen (Tylenol Tab) 650 mg Q4H PRN PO 01/21/17 15:30 02/20/17 15:29 Al Hydrox/Mg Hydrox/Simethicone (Maalox Max Susp) 15 ml Q4H PRN PO 01/21/17 15:30 02/20/17 15:29 01/24/17 08:56 15 ML Magnesium Hydroxide (Milk Of Magnesia Susp) 30 ml Q6H PRN PO 01/21/17 15:30 02/20/17 15:29 01/25/17 20:34 30 ML Polyethylene (Miralax Powder Packet) 17 gm DAILY PRN PO 01/21/17 15:30 02/20/17 15:29 01/24/17 08:56 17 GM Ondansetron HCl (Zofran Inj) 4 mg Q6H PRN IV 01/21/17 15:30 02/20/17 15:29 Amitriptyline HCl (Elavil Tab) 100 mg HS PO 01/21/17 21:00 02/20/17 20:59 01/25/17 20:33 100 MG Diclofenac Sodium (Voltaren 1% Top Gel) 1 appln DAILY PRN EXT 01/21/17 15:30 02/20/17 15:29 Levothyroxine Sodium (Synthroid Tab) 25 mcg DAILYBB PO 01/22/17 06:30 02/21/17 06:29 01/26/17 06:11 25 MCG Cholecalciferol (Vitamin D Tab) 2,000 inter.unit QAM PO 01/22/17 08:00 02/21/17 08:59 01/26/17 08:22 2,000 INTER.UNIT Ferrous Sulfate (Feosol Tab) 325 mg MoWeFr@0900 PO 01/23/17 09:00 02/22/17 08:59 01/26/17 08:22 325 MG Pantoprazole Sodium (Protonix Tab) 40 mg QAM PO 01/22/17 08:00 02/21/17 08:59 01/26/17 08:22 40 MG Sodium Chloride 1,000 ml @ 80 mls/hr [id number] IV 01/21/17 15:30 02/20/17 15:29 01/26/17 06:53 80 MLS/HR Insulin Aspart (novoLOG ASPART) SLIDING SCALE G... ACHS SC 01/21/17 17:00 02/20/17 16:59 01/26/17 12:54 4 UNITS Insulin Glargine (Lantus Solostar Pen) 5 units BID SC 01/21/17 20:00 02/20/17 20:59 01/26/17 08:24 5 UNITS Glucose (Glucose 40% Gel) 15-30 GRAMS 15 GRAMS... UD PRN PO 01/21/17 17:00 02/20/17 16:59 Glucose (Glucose Chew Tab) 4-8 Tablets 4 Tabl... UD PRN PO 01/21/17 17:00 02/20/17 16:59 Dextrose (Dextrose 50% 50ML Syringe) 25-50ML OF 50% DW IV FOR... UD PRN IV 01/21/17 17:00 02/20/17 16:59 Glucagon (Glucagon Inj) 1 mg UD PRN SQ 01/21/17 17:00 02/20/17 16:59 Gadobutrol (Gadavist) 9 mmol UD PRN IV 01/23/17 00:30 01/27/17 00:29 Gadobutrol (Gadavist) 9 mmol UD PRN IV 01/23/17 18:15 01/27/17 18:14 Docusate Sodium (coLACE CAP) 100 mg BID PO 01/24/17 20:00 02/23/17 19:59 01/26/17 08:22 100 MG Bisacodyl (Dulcolax Tab) 5 mg DAILY PRN PO 01/24/17 10:15 02/23/17 10:14 01/26/17 11:37 5 MG Senna (Senokot Tab) 8.6 mg QAM PO 01/25/17 08:00 02/24/17 07:59 01/26/17 08:22 8.6 MG Fentanyl (Duragesic Patch) 12 mcg Q72H TD 01/24/17 13:00 02/07/17 12:59 01/24/17 16:23 12 MCG Miscellaneous (Fentanyl Patch Remove & Waste) 1 ea Q3D N/A 01/27/17 12:59 02/26/17 12:58 Miscellaneous Information (Check Fentanyl Patch Placement) 1 ea QS N/A 01/24/17 16:00 02/23/17 15:59 01/26/17 15:50 1 EA Morphine Sulfate (MoRPHine SULFATE INJ) 0.5 mg Q4 PRN IV 01/26/17 11:45 02/05/17 11:44 Acetaminophen/ Hydrocodone Bitart ([place] 5/325 Tab) 1 tab Q4 PRN PO 01/26/17 11:45 02/09/17 11:44 01/26/17 15:54 1 TAB Objective Vital Signs Date Time Temp Pulse Resp B/P (MAP) Pulse Ox O2 Delivery O2 Flow Rate FiO2 01/26/17 11:16 Room Air 01/26/17 11:03 36.6 87 18 127/79 (95) 96 2.0 01/26/17 07:54 36.4 88 20 139/81 (100) 93 2.0 01/26/17 04:21 36.5 87 20 153/79 (103) 94 Nasal Cannula 2.0 01/26/17 00:05 36.6 91 20 130/75 (93) 92 Nasal Cannula 2.0 01/26/17 00:00 Nasal Cannula 2.0 01/25/17 20:55 36.6 93 18 154/83 (106) 01/25/17 20:00 Room Air Physical Exam General Appearance: no apparent distress Cardiovascular: regular rate, rhythm, no edema, no murmur Abdomen: normal bowel sounds, non tender, soft Extremities: normal inspection, no pedal edema Neurologic/Psychiatric: no motor/sensory deficits, alert, normal mood/affect Laboratory Results Last 24 Hours Test 01/25/17 16:56 01/25/17 20:41 01/26/17 00:27 01/26/17 06:27 Bedside Glucose 80 mg/dl 72 mg/dl 95 mg/dl White Blood Count 5.02 K/uL Red Blood Count 3.62 M/uL Hemoglobin 9.8 g/dL Hematocrit 31.3 % Mean Corpuscular Volume 86.5 fL Mean Corpuscular Hemoglobin 27.1 pg Mean Corpuscular Hemoglobin Concent 31.3 g/dl RDW Standard Deviation 51.4 fL RDW Coefficient of Variation 16.3 % Platelet Count 281 K/uL Mean Platelet Volume 10.0 fL Sodium Level 140 mmol/L Potassium Level 3.8 mmol/L Chloride Level 103 mmol/L Carbon Dioxide Level 25 mmol/L Anion Gap 12.0 mmol/L Blood Urea Nitrogen 13 mg/dl Creatinine 1.10 mg/dl Est Creatinine Clear Calc Drug Dose 53.0 ml/min Estimated GFR () 58.1 Estimated GFR (Non- 50.1 BUN/Creatinine Ratio 11.9 Random Glucose 89 mg/dl Calcium Level 9.3 mg/dl Test 01/26/17 07:42 01/26/17 11:18 Bedside Glucose 86 mg/dl 95 mg/dl Assessment and Plan This is a 71 year old female with a PMH of breast CA s/p bilateral total mastectomy in 2003, DM2, hypothyroidism presents with back pain, rib pain and found to have possible metastatic lesions Metastatic Disease 01/26 will check ultrasound of bilateral axillary for lymph nodes will need tissue diagnosis; lymph nodes vs. bone 01/25 added Fentanyl patch continue bowel regimen will attempt to wean off of morphine possible discharge vs. transfer to tertiary center if concern about cord compression/compression fractures - will need ortho, hem/onc, rad-onc input 01/24 will decrease morphine dose today added fentanyl patch will take care of pain possible discharge vs. transfer to tertiary center if concern about cord compression/compression fractures 01/23 appreciate orthopedic, radiation oncology and hem onc input on this matter severe metastatic disease, diffuse throughout the cervical, thoracic and lumbar spine concern about compression fracture and cord compression as per ortho radiation oncology suggests palliative radiation - after diagnosis is made labs are pending for possible multiple myeloma for now, she is receiving morphine PRN, intermittently with Tramadol PRN may add Fentanyl patch to try to decrease the use of IV pain medications 01/22 unknown primary; hx. of breast CA s/p total mastectomy abdominal and chest CT suggests possible lytic lesions to the spine and bilateral ribs appreciate ortho input, MRI of the spine with/without contrast pending hem-onc consulted for further input she has had colonoscopy about 4 years prior with no findings; has had b/l salpingo-oophorectomy previous smoker about 10 years prior; quit around 2006 for now, we will use morphine and tramadol PRN for pain DM2 will try Lantus 5 units BID sliding scale monitor BSGs Hypothyroidism continue Synthroid DVT ppx Lovenox FULL CODE
--- NOTE | 2017-01-26 17:47 | DIAGNOSTIC IMAGING REPORT ---
RIGHT AXILLARY ULTRASOUND CLINICAL HISTORY: Evaluate right axillary lymph nodes. COMPARISON STUDY: Chest CT January 21, 2017. FINDINGS: Note is made of a mildly enlarged right axillary lymph node that measures 1.5 x 1.1 x 1 cm. This node has an abnormal configuration with rounded morphology and thickened cortex. No fatty hilum is identified. A few additional right axillary lymph nodes have benign imaging characteristics. IMPRESSION: Mildly enlarged right axillary lymph node with abnormal rounded configuration which raises the possibility of a neoplastic process. However, a reactive lymph node could appear similar. Electronically signed by: Desmond Silverio M.D. 01/26/2017 5:46 PM Dictated Date/Time: 01/26/2017 5:42 PM
--- NOTE | 2017-01-26 17:48 | DIAGNOSTIC IMAGING REPORT ---
LEFT AXILLARY ULTRASOUND CLINICAL HISTORY: Evaluate axillary lymph nodes. COMPARISON STUDY: Chest CT T January 21, 2017. FINDINGS: Multiple morphologically benign left axillary lymph nodes are noted. No suspicious left axillary lymph nodes are identified by sonography. Each left axillary lymph node has a fatty hilum and thin cortex. IMPRESSION: No suspicious left axillary lymph nodes. Electronically signed by: Desmond Silverio M.D. 01/26/2017 5:47 PM Dictated Date/Time: 01/26/2017 5:46 PM
--- NOTE | 2017-01-26 19:02 | Hematology/Oncology Prog Note ---
Hematology/Onc Progress Note Date of Service Jan 26, 2017. Medications I saw her at bedside at around 5:30 p.m., few other family members were also at bedside, she is sitting comfortably in the bed, complains of back pain, now started her on fentanyl patch (12 mcg) few days back, no new cardiac or pulmonary symptoms, no leg edema, she is receiving Lovenox prophylaxis, no bleeding complications, she denies any neurological weakness involving both lower extremities. Constipation present MRI of the thoracic spine (01/22/2017)--> diffuse bony metastatic disease involving the cervical, thoracic and lumbar spine, mild posterior vertebral body expansion at C7, T1 and T6 vertebral levels with minor impingement on the anterior aspect of the spinal can now no evidence of significant spinal cord compression noted. MRI of the lumbar spine done on 01/23/2017--> diffuse metastatic disease involving the spine and pelvic bones with tumor expansion of the L2 vertebral body extending 5 mm posteriorly causing mild to moderate central canal stenosis , multilevel DJD noted, no evidence of high-grade stenosis noted, MRI of the cervical spine done on 01/23/2017 showed innumerable enhancing skeletal metastasis throughout the cervical and thoracic spine without high- grade stenosis, tumor expansion of the T1 vertebral body extends 5 mm posteriorly causing [id number] stenosis, multi level DJD noted. Right axillary ultrasound done on 01/26/2017 showed mildly enlarged right axillary lymph node measuring 1.5 x 1.1 x 1 cm, this lymph node has abnormal configuration. Left axillary ultrasound--> no enlarged lymph nodes noted. -WBC 5000, H&H of 9.8/31.3, MCV 86, Platelet count of 281,000, BUN/Creat: 13/ 1.1, calcium 9.3 (01/26/2017) - free kappa light chain 28.6, free lambda light chain 25, Ayden/Bala ratio 1.1 which is in normal range. -M spike--> negative for monoclonal protein. Based on above blood workup findings, no evidence of myeloma noted. I would like to proceed with ultrasound-guided biopsy of the right axillary lymph node for further evaluation. If there is nondiagnostic, she will need biopsy of the one of the bone lesion. Vital Signs Vital Signs Past 12 Hours Date Time Temp Pulse Resp B/P (MAP) Pulse Ox O2 Delivery O2 Flow Rate FiO2 01/26/17 16:00 Room Air 01/26/17 11:16 Room Air 01/26/17 11:03 36.6 87 18 127/79 (95) 96 2.0 01/26/17 07:54 36.4 88 20 139/81 (100) 93 2.0
[2017-01-26 19:31] VITALS: BP 163/93; PULSE 96; TEMP 36.7; O2SAT 99
[2017-01-26 19:32] VITALS: BP 168/92
[2017-01-26] MEDS: ENOXAPARIN 40 MG/0.4 ML SYR SQ SCH (20:39)
[2017-01-26] MEDS: AMITRIPTYLINE HCL 100 MG TAB PO SCH (20:39)
[2017-01-27 00:45] VITALS: BP 155/84; PULSE 94; TEMP 36.4; O2SAT 95
[2017-01-27] MEDS: MoRPHine SULFATE 2 MG/ML CARP IV PRN ×2 (04:32→21:01)
[2017-01-27 06:04] LABS: HEMATOCRIT 31.1 % (37-47); MEAN CELL VOLUME 85.7 fL (80-100); MEAN CORPUSCULAR HEMOGLOBIN 26.7 pg (25-34); MEAN CORPUSCULAR HGB CONC 31.2 g/dl (32-36); MEAN PLATELET VOLUME 9.7 fL (7.4-10.4); PLATELET COUNT 249 K/uL (130-400); RED BLOOD COUNT 3.63 M/uL (4.2-5.4); WHITE BLOOD COUNT 5.18 K/uL (4.8-10.8)
[2017-01-27] MEDS: LEVOTHYROXINE 25 MCG TAB PO SCH (06:22)
[2017-01-27 06:31] LABS: BUN/CREATININE RATIO 11.8 (10-20); CALCIUM 9.3 mg/dl (8.5-10.1); CREATININE 1.2 mg/dl (0.60-1.20); POTASSIUM 3.7 mmol/L (3.5-5.1)
[2017-01-27] MEDS: CHOLECALCIFEROL 1000 INTER.UNIT TAB PO SCH (07:34)
[2017-01-27] MEDS: PANTOprazole SOD 40 MG TAB PO SCH (07:34)
[2017-01-27] MEDS: SENNA 8.6 MG TAB PO SCH (07:34)
[2017-01-27] MEDS: DOCUSATE SODIUM 100 MG CAP PO SCH ×2 (07:34→20:46)
[2017-01-27] MEDS: CHECK FENTANYL PATCH PLACEMENT SCH ×3 (07:38→23:10)
[2017-01-27] MEDS: INSULIN GLARGINE SOLOSTAR 100 UNITS/ML 3 ML PEN SC SCH ×2 (07:38→20:58)
[2017-01-27 07:39] VITALS: BP 156/97; PULSE 112; TEMP 36.5; O2SAT 93
[2017-01-27] MEDS: SODIUM CHLORIDE 0.9% 1000ML 1,000 ML IV SCH ×2 (07:39→20:47)
[2017-01-27] MEDS: INSULIN ASPART 100 UNITS/ML 3 ML PEN SC SCH ×4 (08:16→20:38)
[2017-01-27] MEDS ORDERED: NURSING VERBAL MED ORDER ONE (10:45)
[2017-01-27] MEDS ORDERED: FENTANYL PATCH REMOVE & WASTE SCH ×2 (10:59→12:59)
[2017-01-27] MEDS ORDERED: FENTANYL 25 MCG/HR TDSY TD SCH (11:00)
[2017-01-27 11:40] VITALS: BP 152/84; PULSE 90; TEMP 36.8; O2SAT 93
[2017-01-27] MEDS: HYDROCODONE/ACETAMOPHEN 5/325MG TAB PO PRN ×3 (12:10→20:59)
--- NOTE | 2017-01-27 13:30 | Progress Note ---
Internal Med Progress Note Date of Service: Jan 27, 2017. Provider Documentation: SUBJECTIVE: The patient was seen and examined Pain is controlled Denies any other symptoms OBJECTIVE: Vital Signs-as noted below Exam: General-No distress at rest Eyes-normal ENT-normal Neck-supple Lungs-clear to ausucltate bilaterally Heart-Regular,no murmur Abdomen-Benign,no masses,bowel sound present Extremities-No edema Neuro-AAOx3 Lab data as noted below. ASSESSMENT & PLAN: This is a 71 year old female with a PMH of breast CA s/p bilateral total mastectomy in 2003, DM2, hypothyroidism presents with back pain, rib pain and found to have possible metastatic lesions Metastatic Disease Presented with increasing Back pain Unknown primary with H/O of breast CA s/p total mastectomy Abdominal and chest CT suggests possible lytic lesions to the spine and bilateral ribs MRI of the Thoracic,Lumbar and Cervical Spine;Showed Metastatic Disease as below :: MRI of the thoracic spine (01/22/2017)--> -diffuse bony metastatic disease involving the cervical, thoracic and lumbar spine, mild posterior vertebral body expansion at C7, T1 and T6 vertebral levels with minor impingement on the anterior aspect of the spinal can now no evidence of significant spinal cord compression noted. MRI of the lumbar spine done on 01/23/2017--> - diffuse metastatic disease involving the spine and pelvic bones with tumor expansion of the L2 vertebral body extending 5 mm posteriorly causing mild to moderate central canal stenosis, multilevel DJD noted, no evidence of high- grade stenosis noted, MRI of the cervical spine done on 01/23/2017 -showed innumerable enhancing skeletal metastasis throughout the cervical and thoracic spine without high-grade stenosis, tumor expansion of the T1 vertebral body extends 5 mm posteriorly causing [id number] stenosis, multi level DJD noted. Right axillary ultrasound done on 01/26/2017 showed mildly enlarged right axillary lymph node measuring 1.5 x 1.1 x 1 cm, this lymph node has abnormal configuration. Appreciate ortho input Appreciate hem-onc consulted for further input and appreciate Radiation Oncology input She has had colonoscopy about 4 years prior with no findings; has had b/l salpingo-oophorectomy Previous smoker about 10 years prior; quit around 2006 US guided biopsy of the right Axillary Lymph node today DM2 Lantus 5 units BID On sliding scale Monitor BSGs Hypothyroidism Continue Synthroid DVT ppx Lovenox FULL CODE Vital Signs: Date Time Temp Pulse Resp B/P (MAP) Pulse Ox O2 Delivery O2 Flow Rate FiO2 01/27/17 11:40 36.8 90 20 152/84 (106) 93 01/27/17 09:34 Room Air 01/27/17 07:39 36.5 112 20 156/97 (116) 93 Room Air 01/27/17 00:45 36.4 94 16 155/84 (107) 95 01/27/17 00:15 Room Air 01/26/17 19:32 168/92 (117) 01/26/17 19:31 36.7 96 19 163/93 (116) 99 Room Air 01/26/17 16:00 Room Air Lab Results: Results Past 24 Hours Test 01/26/17 17:15 01/26/17 20:18 01/27/17 05:39 01/27/17 07:37 Range/Units Bedside Glucose 103 97 99 70-90 mg/dl White Blood Count 5.18 4.8-10.8 K/uL Red Blood Count 3.63 4.2-5.4 M/uL Hemoglobin 9.7 12.0-16.0 g/dL Hematocrit 31.1 37-47 % Mean Corpuscular Volume 85.7 80-100 fL Mean Corpuscular Hemoglobin 26.7 25-34 pg Mean Corpuscular Hemoglobin Concent 31.2 32-36 g/dl RDW Standard Deviation 51.3 36.4-46.3 fL RDW Coefficient of Variation 16.3 11.5-14.5 % Platelet Count 249 130-400 K/uL Mean Platelet Volume 9.7 7.4-10.4 fL Sodium Level 139 136-145 mmol/L Potassium Level 3.7 3.5-5.1 mmol/L Chloride Level 104 98-107 mmol/L Carbon Dioxide Level 29 21-32 mmol/L Anion Gap 6.0 3-11 mmol/L Blood Urea Nitrogen 14 7-18 mg/dl Creatinine 1.20 0.60-1.20 mg/dl Est Creatinine Clear Calc Drug Dose 48.6 ml/min Estimated GFR () 52.3 Estimated GFR (Non- 45.1 BUN/Creatinine Ratio 11.8 10-20 Random Glucose 93 70-99 mg/dl Calcium Level 9.3 8.5-10.1 mg/dl Test 01/27/17 11:39 Range/Units Bedside Glucose 92 70-90 mg/dl
--- NOTE | 2017-01-27 14:27 | DIAGNOSTIC IMAGING REPORT ---
ULTRASOUND-GUIDED FINE-NEEDLE ASPIRATION OF A RIGHT AXILLARY LYMPH NODE HISTORY:. Rt Axillary node bipsy COMPARISON: Right axillary ultrasound 01/26/2017. PROCEDURE: Written informed consent was obtained. The right axilla was prepped and draped in the usual sterile fashion. 1% lidocaine was used for local anesthesia. A total of 2 passes using a 22-gauge needle were made through dominant 1.5 cm lymph node under ultrasound guidance. Specimens were given to the on-site pathologist who determined adequate tissue for diagnosis. The patient tolerated the procedure well. There were no immediate locations. IMPRESSION: Successful ultrasound-guided fine-needle aspiration of a right axillary lymph node. Electronically signed by: Jose Elias Suarez M.D. 01/27/2017 2:26 PM Dictated Date/Time: 01/27/2017 2:25 PM
[2017-01-27 15:30] VITALS: BP 155/82; PULSE 94; TEMP 36.6; O2SAT 91
--- NOTE | 2017-01-27 18:28 | Hematology/Oncology Prog Note ---
Hematology/Onc Progress Note Date of Service Jan 27, 2017. Subjective I saw her at bedside, earlier in the day fentanyl patch increased to 25 mcg, she is comfortable at this time, has not experienced any new symptoms, earlier in the day she had FNA from the right axillary lymph node, result pending, no new cardiac or pulmonary symptoms, no leg edema, no bleeding from any sites. Hemodynamically she has remained stable, denies any tingling or numbness of extremities, no neurological weakness of the lower extremities. I reviewed her blood workup done today, overall stable findings, mild anemia with hemoglobin level around 9.7 noted, normal white blood cell count and platelet count. -serum creatinine level--> 1.2, calcium 9.3. Will follow-up FNA from the right axilla lymph node result. Will continue with the current medical management. Vital Signs Vital Signs Past 12 Hours Date Time Temp Pulse Resp B/P (MAP) Pulse Ox O2 Delivery O2 Flow Rate FiO2 01/27/17 16:47 Room Air 01/27/17 15:30 36.6 94 18 155/82 (106) 91 Room Air 01/27/17 11:40 36.8 90 20 152/84 (106) 93 01/27/17 09:34 Room Air 01/27/17 07:39 36.5 112 20 156/97 (116) 93 Room Air
[2017-01-27 19:50] VITALS: BP 174/95; PULSE 89; TEMP 36.6; O2SAT 94
[2017-01-27] MEDS: ENOXAPARIN 40 MG/0.4 ML SYR SQ SCH (20:46)
[2017-01-27] MEDS: AMITRIPTYLINE HCL 100 MG TAB PO SCH (20:46)
[2017-01-28] VITALS (9 sets, daily range): BP systolic 146–181; BP diastolic 77–106; PULSE 84–102; TEMP 36.2–36.8; O2SAT 90–94
[2017-01-28] MEDS: MoRPHine SULFATE 2 MG/ML CARP IV PRN ×2 (05:28→06:44)
[2017-01-28] MEDS: HYDROCODONE/ACETAMOPHEN 5/325MG TAB PO PRN ×5 (05:30→23:58)
[2017-01-28] MEDS: LEVOTHYROXINE 25 MCG TAB PO SCH (06:04)
[2017-01-28] MEDS ORDERED: DICLOFENAC SOD 1% GEL 100 GM TUBE EXT PRN (07:15)
[2017-01-28] MEDS: SENNA 8.6 MG TAB PO SCH (08:18)
[2017-01-28] MEDS: PANTOprazole SOD 40 MG TAB PO SCH (08:18)
[2017-01-28] MEDS: DOCUSATE SODIUM 100 MG CAP PO SCH ×2 (08:18→20:06)
[2017-01-28] MEDS: CHOLECALCIFEROL 1000 INTER.UNIT TAB PO SCH (08:19)
[2017-01-28] MEDS: FERROUS SULFATE 325 MG TAB PO SCH (08:19)
[2017-01-28] MEDS: CHECK FENTANYL PATCH PLACEMENT SCH ×2 (08:20→15:40)
[2017-01-28] MEDS: INSULIN ASPART 100 UNITS/ML 3 ML PEN SC SCH ×4 (09:00→20:08)
[2017-01-28] MEDS: INSULIN GLARGINE SOLOSTAR 100 UNITS/ML 3 ML PEN SC SCH ×2 (09:01→20:16)
[2017-01-28] MEDS: SODIUM CHLORIDE 0.9% 1000ML 1,000 ML IV SCH ×2 (10:57→20:05)
--- NOTE | 2017-01-28 14:34 | Progress Note ---
Internal Med Progress Note Date of Service: Jan 28, 2017. Provider Documentation: SUBJECTIVE: The patient was seen and examined Pain is controlled Denies any other symptoms Increase ambulation PT/OT ordered OBJECTIVE: Vital Signs-as noted below Exam: General-No distress at rest Eyes-normal ENT-normal Neck-supple Lungs-clear to ausucltate bilaterally Heart-Regular,no murmur Abdomen-Benign,no masses,bowel sound present Extremities-No edema Neuro-AAOx3 Lab data as noted below. ASSESSMENT & PLAN: This is a 71 year old female with a PMH of breast CA s/p bilateral total mastectomy in 2003, DM2, hypothyroidism presents with back pain, rib pain and found to have possible metastatic lesions Metastatic Disease Presented with increasing Back pain Unknown primary with H/O of breast CA s/p total mastectomy Abdominal and chest CT suggests possible lytic lesions to the spine and bilateral ribs MRI of the Thoracic,Lumbar and Cervical Spine;Showed Metastatic Disease as below :: MRI of the thoracic spine (01/22/2017)--> -diffuse bony metastatic disease involving the cervical, thoracic and lumbar spine, mild posterior vertebral body expansion at C7, T1 and T6 vertebral levels with minor impingement on the anterior aspect of the spinal can now no evidence of significant spinal cord compression noted. MRI of the lumbar spine done on 01/23/2017--> - diffuse metastatic disease involving the spine and pelvic bones with tumor expansion of the L2 vertebral body extending 5 mm posteriorly causing mild to moderate central canal stenosis, multilevel DJD noted, no evidence of high- grade stenosis noted, MRI of the cervical spine done on 01/23/2017 -showed innumerable enhancing skeletal metastasis throughout the cervical and thoracic spine without high-grade stenosis, tumor expansion of the T1 vertebral body extends 5 mm posteriorly causing [id number] stenosis, multi level DJD noted. Right axillary ultrasound done on 01/26/2017 showed mildly enlarged right axillary lymph node measuring 1.5 x 1.1 x 1 cm, this lymph node has abnormal configuration. Appreciate ortho input Appreciate hem-onc consulted for further input and appreciate Radiation Oncology input She has had colonoscopy about 4 years prior with no findings; has had b/l salpingo-oophorectomy Previous smoker about 10 years prior; quit around 2006 S/P US guided biopsy of the right Axillary Lymph node-Pathology result pending DM2 Lantus 5 units BID On sliding scale Monitor BSGs Hypothyroidism Continue Synthroid DVT ppx Lovenox FULL CODE Disposition Likely to stay till Thursday Vital Signs: Date Time Temp Pulse Resp B/P (MAP) Pulse Ox O2 Delivery O2 Flow Rate FiO2 01/28/17 12:03 36.6 86 20 175/106 (129) 90 Room Air 01/28/17 08:30 91 Room Air 01/28/17 08:15 Room Air 01/28/17 07:30 36.6 88 18 152/96 (114) 91 Room Air 01/28/17 03:49 36.6 84 18 149/79 (102) 92 Room Air 01/28/17 00:16 36.8 91 18 146/77 (100) 91 Room Air 01/28/17 00:15 Room Air 01/27/17 19:50 36.6 89 18 174/95 (121) 94 Room Air 01/27/17 16:47 Room Air 01/27/17 15:30 36.6 94 18 155/82 (106) 91 Room Air Lab Results: Results Past 24 Hours Test 01/27/17 16:46 01/27/17 20:08 01/28/17 08:34 01/28/17 11:45 Range/Units Bedside Glucose 87 95 111 147 70-90 mg/dl
[2017-01-28] MEDS: AMITRIPTYLINE HCL 100 MG TAB PO SCH (20:06)
[2017-01-28] MEDS: ENOXAPARIN 40 MG/0.4 ML SYR SQ SCH (20:07)
[2017-01-29] MEDS: CHECK FENTANYL PATCH PLACEMENT SCH ×4 (00:01→23:54)
[2017-01-29 03:51] VITALS: BP 182/93; PULSE 95; TEMP 36.4; O2SAT 91
[2017-01-29] MEDS: LEVOTHYROXINE 25 MCG TAB PO SCH (05:42)
[2017-01-29] MEDS: HYDROCODONE/ACETAMOPHEN 5/325MG TAB PO PRN ×4 (05:43→23:53)
[2017-01-29] MEDS: MAGNESIUM HYDROXIDE SUSP 30 ML UDC PO PRN (05:43)
[2017-01-29 06:00] VITALS: BP 169/90; PULSE 88
[2017-01-29 07:27] VITALS: BP 162/92; PULSE 82; TEMP 36.6; O2SAT 92
[2017-01-29] MEDS: DOCUSATE SODIUM 100 MG CAP PO SCH ×2 (08:10→21:05)
[2017-01-29] MEDS: SENNA 8.6 MG TAB PO SCH (08:10)
[2017-01-29] MEDS: CHOLECALCIFEROL 1000 INTER.UNIT TAB PO SCH (08:11)
[2017-01-29] MEDS: PANTOprazole SOD 40 MG TAB PO SCH (08:12)
[2017-01-29] MEDS: POLYETHYLENE (MIRALAX) 17 GM PACK PO PRN (08:13)
[2017-01-29] MEDS: INSULIN ASPART 100 UNITS/ML 3 ML PEN SC SCH ×4 (08:14→21:00)
[2017-01-29] MEDS: INSULIN GLARGINE SOLOSTAR 100 UNITS/ML 3 ML PEN SC SCH ×2 (08:15→21:07)
[2017-01-29] MEDS: SODIUM CHLORIDE 0.9% 1000ML 1,000 ML IV SCH (08:18)
[2017-01-29] MEDS ORDERED: NURSING VERBAL MED ORDER ONE (10:45)
[2017-01-29] MEDS: MoRPHine SULFATE 2 MG/ML CARP IV PRN (14:17)
--- NOTE | 2017-01-29 16:42 | Progress Note ---
Internal Med Progress Note Date of Service: Jan 29, 2017. Provider Documentation: SUBJECTIVE: The patient was seen and examined Pain is controlled Denies any other symptoms Increase ambulation PT/OT ordered-doing better OBJECTIVE: Vital Signs-as noted below Exam: General-No distress at rest Eyes-normal ENT-normal Neck-supple Lungs-clear to ausucltate bilaterally Heart-Regular,no murmur Abdomen-Benign,no masses,bowel sound present Extremities-No edema Neuro-AAOx3 Lab data as noted below. ASSESSMENT & PLAN: This is a 71 year old female with a PMH of breast CA s/p bilateral total mastectomy in 2003, DM2, hypothyroidism presents with back pain, rib pain and found to have possible metastatic lesions Biopsy result received Metastatic Adenocarcinoma of breast Not much tissue for further staining Will need repeat Biopsy Discussed with the Oncologist Likely home following Biopsy tomorrow Metastatic Disease Presented with increasing Back pain Unknown primary with H/O of breast CA s/p total mastectomy Abdominal and chest CT suggests possible lytic lesions to the spine and bilateral ribs MRI of the Thoracic,Lumbar and Cervical Spine;Showed Metastatic Disease as below :: MRI of the thoracic spine (01/22/2017)--> -diffuse bony metastatic disease involving the cervical, thoracic and lumbar spine, mild posterior vertebral body expansion at C7, T1 and T6 vertebral levels with minor impingement on the anterior aspect of the spinal can now no evidence of significant spinal cord compression noted. MRI of the lumbar spine done on 01/23/2017--> - diffuse metastatic disease involving the spine and pelvic bones with tumor expansion of the L2 vertebral body extending 5 mm posteriorly causing mild to moderate central canal stenosis, multilevel DJD noted, no evidence of high- grade stenosis noted, MRI of the cervical spine done on 01/23/2017 -showed innumerable enhancing skeletal metastasis throughout the cervical and thoracic spine without high-grade stenosis, tumor expansion of the T1 vertebral body extends 5 mm posteriorly causing [id number] stenosis, multi level DJD noted. Right axillary ultrasound done on 01/26/2017 showed mildly enlarged right axillary lymph node measuring 1.5 x 1.1 x 1 cm, this lymph node has abnormal configuration. Appreciate ortho input Appreciate hem-onc consulted for further input and appreciate Radiation Oncology input She has had colonoscopy about 4 years prior with no findings; has had b/l salpingo-oophorectomy Previous smoker about 10 years prior; quit around 2006 S/P US guided biopsy of the right Axillary Lymph node-Pathology :: LYMPH NODE, RIGHT AXILLA, ULTRASOUND-GUIDED FINE NEEDLE ASPIRATION: POSITIVE FOR MALIGNANT CELLS, METASTATIC ADENOCARCINOMA CONSISTENT WITH BREAST PRIMARY. SEE COMMENT. Want of tissue for staining DM2 Lantus 5 units BID On sliding scale Monitor BSGs Hypothyroidism Continue Synthroid DVT ppx Lovenox FULL CODE Disposition Likely discharge tomorrow after repeat Biopsy Vital Signs: Date Time Temp Pulse Resp B/P (MAP) Pulse Ox O2 Delivery O2 Flow Rate FiO2 01/29/17 10:07 Room Air 01/29/17 07:27 36.6 82 16 162/92 (115) 92 Room Air 01/29/17 06:00 88 169/90 (116) 01/29/17 03:51 36.4 95 18 182/93 (122) 91 Room Air 01/29/17 00:35 Room Air 01/28/17 23:55 36.3 93 20 157/89 (111) 90 Room Air 01/28/17 22:07 Room Air 01/28/17 19:31 36.2 102 19 181/83 (115) 94 Room Air Lab Results: Results Past 24 Hours Test 01/28/17 16:46 01/28/17 20:08 01/29/17 07:42 01/29/17 11:55 Range/Units Bedside Glucose 73 91 79 96 70-90 mg/dl
[2017-01-29 16:58] VITALS: BP 163/81; PULSE 81; TEMP 36.6; O2SAT 93
--- NOTE | 2017-01-29 18:57 | Hematology/Oncology Prog Note ---
Hematology/Onc Progress Note Date of Service Jan 29, 2017. Subjective I saw her bedside at about 5:30 p. m., she is sitting comfortable in the bed, she says that her pain is well controlled when she moves around she gets the back pain, today received biopsy result from the right axillary lymph node--> metastatic adenocarcinoma consistent with breast primary but sample is not enough for ER, VT and Her2/Ary testing. Earlier he was seen by radiation oncologist Dr. Carpenter who spoke with me about her case, will begin palliative radiation treatment to symptomatic bony metastatic disease in her case. I informed her about importance of having another biopsy for further evaluation for hormonal receptor and Her2/Ary status. She is scheduled for another ultrasound-guided biopsy tomorrow. Once biopsy is done, she could go home and have radiation treatment as an outpatient. Will decide about further treatment of metastatic breast cancer after reviewing 2nd biopsy result including hormonal and Her2/Ary status. Will also begin bone modifying agent as an outpatient in the next 1 to 2 weeks. Presently she is on fentanyl patch at 25 mcg, she may require higher dose in the near future for better pain management. I reviewed her blood workup done recently, overall stable blood counts other than mild anemia noted. Earlier blood workup showed normal calcium level. Will see her back in the office in about 1 to 2 weeks. Vital Signs Vital Signs Past 12 Hours Date Time Temp Pulse Resp B/P (MAP) Pulse Ox O2 Delivery O2 Flow Rate FiO2 01/29/17 16:58 36.6 81 18 163/81 (108) 93 Room Air 01/29/17 16:00 Room Air 01/29/17 10:07 Room Air 01/29/17 07:27 36.6 82 16 162/92 (115) 92 Room Air
[2017-01-29 19:30] VITALS: BP 174/94; PULSE 99; TEMP 36.5; O2SAT 90
[2017-01-29] MEDS: AMITRIPTYLINE HCL 100 MG TAB PO SCH (21:05)
[2017-01-29] MEDS: ENOXAPARIN 40 MG/0.4 ML SYR SQ SCH (21:06)
[2017-01-29 22:59] VITALS: BP 130/73; PULSE 89; TEMP 36.6; O2SAT 91
[2017-01-30] VITALS: O2SAT 91
[2017-01-30 04:53] VITALS: BP 163/84; PULSE 87; TEMP 36.4; O2SAT 93
[2017-01-30] MEDS: LEVOTHYROXINE 25 MCG TAB PO SCH (06:00)
[2017-01-30] MEDS: DOCUSATE SODIUM 100 MG CAP PO SCH (07:20)
[2017-01-30] MEDS: FERROUS SULFATE 325 MG TAB PO SCH (07:20)
[2017-01-30] MEDS: CHOLECALCIFEROL 1000 INTER.UNIT TAB PO SCH (07:20)
[2017-01-30] MEDS: SENNA 8.6 MG TAB PO SCH (07:20)
[2017-01-30] MEDS: CHECK FENTANYL PATCH PLACEMENT SCH (07:20)
[2017-01-30] MEDS: PANTOprazole SOD 40 MG TAB PO SCH (07:20)
[2017-01-30] MEDS: HYDROCODONE/ACETAMOPHEN 5/325MG TAB PO PRN ×2 (07:32→14:15)
[2017-01-30 07:33] VITALS: BP 159/85; PULSE 104; TEMP 36.6; O2SAT 92
[2017-01-30] MEDS: INSULIN ASPART 100 UNITS/ML 3 ML PEN SC SCH ×2 (08:59→12:25)
[2017-01-30] MEDS: INSULIN GLARGINE SOLOSTAR 100 UNITS/ML 3 ML PEN SC SCH (09:54)
[2017-01-30] MEDS ORDERED: NURSING VERBAL MED ORDER ONE (10:00)
--- NOTE | 2017-01-30 10:16 | DIAGNOSTIC IMAGING REPORT ---
ULTRASOUND-GUIDED FINE-NEEDLE ASPIRATION AND CORE BIOPSY RIGHT AXILLARY LYMPH NODE CLINICAL HISTORY: Osteolytic bone disease. Right axillary lymphadenopathy. History of breast cancer. COMPARISON STUDY: Chest CT dated 01/21/2017. PROCEDURE: The risks, benefits, and alternatives to the procedure were discussed with the patient. Written informed consent was obtained. The patient was placed supine in ultrasound, and the 1.2 cm round hypoechoic lymph node in the right axilla was localized by ultrasound and selected for tissue sampling. The right axilla was prepped and draped in the usual sterile fashion. 1% lidocaine was used for local anesthetic. The lymph node was aspirated under ultrasound guidance with 1 pass utilizing a 25-gauge needle. Specimens showed scattered lymphocytes. Core biopsy of the lymph node was then performed with 2 passes utilizing a 20-gauge 1 cm core biopsy device. A touch prep of the first sample was reviewed by the pathologist which showed abundant lymphocytes. Both core samples were were submitted in formalin. The patient tolerated the procedure well and left the department in satisfactory condition. IMPRESSION: Completed fine-needle aspiration and core biopsy of a right axillary lymph node as above. Electronically signed by: Lencho Jean M.D. 01/30/2017 10:14 AM Dictated Date/Time: 01/30/2017 10:11 AM
[2017-01-30] MEDS ORDERED: FENTANYL PATCH REMOVE & WASTE SCH (10:29)
[2017-01-30] MEDS ORDERED: FENTANYL 25 MCG/HR TDSY TD SCH (10:30)
[2017-01-30] MEDS ORDERED: FENTANYL 12 MCG/HR TDSY TD SCH (10:30)
[2017-01-30 10:44] VITALS: BP 159/85; PULSE 104; TEMP 36.6; O2SAT 92
--- NOTE | 2017-01-30 12:09 | Progress Note ---
Internal Med Progress Note Date of Service: Jan 30, 2017. Provider Documentation: SUBJECTIVE: The patient was seen and examined Pain is controlled with increasing dose of Fentanyl Patch Denies any other symptoms Increase ambulation S/P Second US guided Biopsy on 01/30/17 OBJECTIVE: Vital Signs-as noted below Exam: General-No distress at rest Eyes-normal ENT-normal Neck-supple Lungs-clear to ausucltate bilaterally Heart-Regular,no murmur Abdomen-Benign,no masses,bowel sound present Extremities-No edema Neuro-AAOx3 Lab data as noted below. ASSESSMENT & PLAN: This is a 71 year old female with a PMH of breast CA s/p bilateral total mastectomy in 2003, DM2, hypothyroidism presents with back pain, rib pain and found to have possible metastatic lesions S/P US Guided Biopsy of the Right axillary Lymph Node Biopsy result received Metastatic Adenocarcinoma of breast Not much tissue for further staining Will need repeat Biopsy Discussed with the Oncologist S/P Repeat Biopsy on 01/30/17 Feels better following the procedure Will discharge home today Metastatic Disease Presented with increasing Back pain Unknown primary with H/O of breast CA s/p total mastectomy Abdominal and chest CT suggests possible lytic lesions to the spine and bilateral ribs MRI of the Thoracic,Lumbar and Cervical Spine;Showed Metastatic Disease as below :: MRI of the thoracic spine (01/22/2017)--> -diffuse bony metastatic disease involving the cervical, thoracic and lumbar spine, mild posterior vertebral body expansion at C7, T1 and T6 vertebral levels with minor impingement on the anterior aspect of the spinal can now no evidence of significant spinal cord compression noted. MRI of the lumbar spine done on 01/23/2017--> - diffuse metastatic disease involving the spine and pelvic bones with tumor expansion of the L2 vertebral body extending 5 mm posteriorly causing mild to moderate central canal stenosis, multilevel DJD noted, no evidence of high- grade stenosis noted, MRI of the cervical spine done on 01/23/2017 -showed innumerable enhancing skeletal metastasis throughout the cervical and thoracic spine without high-grade stenosis, tumor expansion of the T1 vertebral body extends 5 mm posteriorly causing [id number] stenosis, multi level DJD noted. Right axillary ultrasound done on 01/26/2017 showed mildly enlarged right axillary lymph node measuring 1.5 x 1.1 x 1 cm, this lymph node has abnormal configuration. Appreciate ortho input Appreciate hem-onc consulted for further input and appreciate Radiation Oncology input She has had colonoscopy about 4 years prior with no findings; has had b/l salpingo-oophorectomy Previous smoker about 10 years prior; quit around 2006 S/P US guided biopsy of the right Axillary Lymph node-Pathology :: LYMPH NODE, RIGHT AXILLA, ULTRASOUND-GUIDED FINE NEEDLE ASPIRATION: POSITIVE FOR MALIGNANT CELLS, METASTATIC ADENOCARCINOMA CONSISTENT WITH BREAST PRIMARY. SEE COMMENT. Want of tissue for staining Repeat Biopsy done on 01/30/17-result pending DM2 Lantus 5 units BID On sliding scale Monitor BSGs Hypothyroidism Continue Synthroid DVT ppx Lovenox FULL CODE Disposition Discharge today Vital Signs: Date Time Temp Pulse Resp B/P (MAP) Pulse Ox O2 Delivery O2 Flow Rate FiO2 01/30/17 10:44 36.6 104 16 92 Room Air 01/30/17 07:52 Room Air 01/30/17 07:33 36.6 104 16 159/85 (109) 92 Room Air 01/30/17 04:53 36.4 87 18 163/84 (110) 93 Room Air 01/30/17 00:00 91 Room Air 01/29/17 22:59 36.6 89 18 130/73 (92) 91 Room Air 01/29/17 19:30 36.5 99 18 174/94 (120) 90 Room Air 01/29/17 16:58 36.6 81 18 163/81 (108) 93 Room Air 01/29/17 16:00 Room Air Lab Results: Results Past 24 Hours Test 01/29/17 16:37 01/29/17 19:54 01/30/17 08:15 01/30/17 11:15 Range/Units Bedside Glucose 92 86 112 95 70-90 mg/dl
[2017-01-30] MEDS ORDERED: DRGTP25 TD (12:40)
[2017-01-30] MEDS ORDERED: DRGTP12 TD (12:40)
[2017-01-30] MEDS ORDERED: HYDR-5688 PO (12:40)
[2017-01-30] MEDS ORDERED: MRLP17X PO (12:40)
--- NOTE | 2017-01-30 12:44 | Discharge Instructions ---
Discharge Instructions Date of Service Jan 30, 2017. Admission Reason for Admission: Back Pain, Chest Pain Discharge Discharge Diagnosis / Problem: Metastatic Breast Cancer,Back Pain,DM Discharge Goals Goal(s): Prevent Disease Progression Activity Recommendations Activity Limitations: resume your previous activity (Take precaution to avoid fall) . Instructions / Follow-Up Instructions / Follow-Up Please make an appointment with your PCP in 1 week,Keep appointment with Radiation Oncology,Dr Tai's office will call with appointment Current Hospital Diet Patient's current hospital diet: AHA Diet (Heart Healthy), Diabetes Type 2 Diet Discharge Diet Recommended Diet: AHA Diet (Heart Healthy), Diabetes Type 2 Diet Pending Studies Studies pending at discharge: yes List of pending studies: Right Axillary node Biopsy Laboratory Results Hemoglobin A1c Test 01/22/17 06:02 Range/Units Estimated Average Glucose 126 mg/dl Hemoglobin A1c 6.0 H 4.5-5.6 % Medical Emergencies . Who to Call and When: Medical Emergencies: If at any time you feel your situation is an emergency, please call 911 immediately. . Non-Emergent Contact Non-Emergency issues call your: Primary Care Provider . 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 "Provider Documentation" section prepared by Jeff Patel. . Dictating Machine Typist Recommendations Dictating Machine Typist Recommendations: Important Note: The patient reports that she has had back/Thoracic pain for the last 2 months.She has pain when rolling over in her bed or with activity.She is most comfortable in resting position.A hospital bed would relieve her pain.Have talked with the patient about the need for a hospital bed. VTE Core Measure Inpt VTE Proph given/why not?: Enoxaparin (Lovenox)SQ
[2017-01-30] MEDS ORDERED: CHECK FENTANYL PATCH PLACEMENT SCH ×2 (16:00)
--- NOTE | 2017-01-31 08:07 | Discharge Summary ---
Discharge Summary Date of Service Jan 31, 2017. Discharge Summary Admission Date: Jan 21, 2017 at 15:28 Discharge Date: Jan 30, 2017 Discharge Disposition: Home with services Principal Diagnosis: Metastatic Breast Cancer,Back Pain,DM Secondary Diagnoses/Problems: Please see H&P and Hospital Progress note Procedures: Rt Axillary Node biopsy Consultations: Oncology and Radiation Oncology Medication Reconciliation New Medications: Fentanyl (Fentanyl) 12 Mcg Tdsy 12 MCG TD Q3D@1030 for 10 Days, #3 Apply with 25Mcg Patch Fentanyl (Fentanyl) 25 Mcg Tdsy 25 MCG TD Q3D@1030 for 10 Days, #3 Apply with 12 Mcg patch Hydrocodone/Acetaminophen 5MG/325MG (Ray 5MG/325MG) Tab 1 TAB PO Q4 PRN for Pain for 10 Days, #30 TAB PRN PAIN Polyethylene (Miralax) 17 Gm Pow 17 GM PO DAILY PRN for Constipation for 30 Days, #30 DOSE Continued Medications: Amitriptyline HCl (Amitriptyline HCl) 100 Mg Tab 100 MG PO HS Cholecalciferol (Vitamin D3) 2,000 Unit Cap 1 CAP PO DAILY for 90 Days, #90 CAP 3 Refills Diclofenac Sodium (Topical) (Voltaren 1% Top Gel) 1 % Gel 1 APPLN TOP UD PRN for Pain Ferrous Sulfate (Kp Ferrous Sulfate) 325 Mg Tab 1 TAB PO 3XWK for 30 Days, TAB 3 Refills Glipizide (Glipizide Er) 2.5 Mg Tab 1 TAB PO DAILY for 90 Days, #90 TAB 3 Refills Levothyroxine Sodium (Synthroid) 25 Mcg Tab 25 MCG PO DAILY, TAB Metformin Hcl (Glucophage) 500 Mg Tab 500 MG PO BID, TAB Omeprazole (Prilosec) 20 Mg Capcr 20 MG PO DAILY, CAP Potassium (Potassium) 99 Mg Tab 99 MG PO DAILY Tramadol (Ultram) 50 Mg Tab 50-100 MG PO Q8H PRN for Pain, TAB Admission Information HPI (per Admitting provider): DATE OF ADMISSION: 01/21/2017 CHIEF COMPLAINT: Back pain, chest pain, and generalized pain. 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 The patient says her back pain started a couple months ago and at that time she has also had left facial droop and she was diagnosed with Green palsy and Lyme disease and she was given antibiotics and steroids .Than back pain seemed little bit better, but again got worse. With steroids she also developed some heartburn and she was placed on some acid reflux medication which helped her heartburn.Today she went to family doctor because of worsening back pain and chest pain below the lower part of her left ribs and also abdominal discomfort and she also found to have some pleural effusion and she was sent here for possible PE. CT angiogram of the chest was done which was negative for PE but showed multiple bony lesions, multiple destructive lesions of the spine and in the multiple bilateral ribs and they are new from _ CT scan from 2013 compatible with metastasis, there are also compression deformity of T6 vertebral body, which again seen unchanged from the October 2016 and is comparable with pathological fracture and we were called for admission. The patient currently resting comfortably, hemodynamically stable. She says lately she will get short of short of breath with some exertion, had chest pain in the lower part of the ribcage and back pain and some abdominal discomfort. Denies any headaches, no blurred vision, no dizziness, no sore throat, some nausea but no vomiting, no constipation or diarrhea. Normal bladder movements. No blood in the urine or blood in the stools. No rash, no swelling in the legs. Appetite is poor lately, but is able to ambulate in the house is okay for short distances, lives with her granddaughter and she denies any cough or any fever or chills. ALLERGIES: ADHESIVE TAPES ASPIRIN, CEPHALEXIN. MEDICATIONS: The patient is on glipizide 2.5 mg p.o. daily, metformin 500 mg p.o. b.i.d., amitriptyline 100 mg p.o. at bedtime, vitamin D 2000 units p.o. daily, ferrous sulfate 325 mg p.o. 3 times a week, levothyroxine 25 mcg p.o. daily, omeprazole 20 mg p.o. daily, potassium 99 mg p.o. daily, and tramadol 50 mg p.o. q. 8 hours p.r.n. PAST MEDICAL HISTORY: As mentioned above. PAST SURGICAL HISTORY: Bilateral mastectomy, laparoscopic cholecystectomy, and total hysterectomy. FAMILY HISTORY: Father had a stroke and heart disorder; brother has heart disorder; maternal aunts with cancer. SOCIAL HISTORY: Smokes quarter pack for 20 years. No alcohol use. No drug use. REVIEW OF SYMPTOMS: As per HPI. PHYSICAL EXAMINATION: GENERAL: The patient is obese, not in distress. VITAL SIGNS: Temperature 37, pulse of 95, respiratory rate 18, blood pressure 150/100, oxygen 92%. HEENT: No pallor, no icterus. Pupils equal, round, and reactive to light. Oral mucosa dry. NECK: No JVD, no neck masses, no carotid bruits. Supple. CARDIOVASCULAR: S1, S2 heard; regular rate and rhythm, no murmur, no gallop. RESPIRATORY SYSTEM: Normal AP diameter. No accessory muscle use. No wheezing, no crackles. ABDOMEN: Soft, bowel sounds present, mild discomfort in the right lower quadrant. No guarding, no rigidity, no distention. CENTRAL NERVOUS SYSTEM: Cranial nerves II-XII grossly intact. Nonfocal. MUSCULOSKELETAL: No spinal tenderness seen. EXTREMITIES: No edema, no erythema. LABORATORY DATA: WBC 7.8, hemoglobin 10.6, hematocrit 33.4, platelets 335. Sodium 137, potassium 3.7, chloride 101, bicarbonate 27, BUN 11, creatinine 1.2, serum glucose 102, calcium 9.4. Total bilirubin 0.5, direct bilirubin 0.2, AST 22, ALT 22, alkaline phosphatase 143, total creatinine kinase 61. Troponin I less than 0.03. Lipase 112, D-dimer greater than 450. Urinalysis - moderate for leukocyte esterase. IMAGING DATA: Chest x-ray: Small right pleural effusion, developing right basilar airspace opacities, atelectasis versus inflammatory. CT of the chest demonstrates multiple destructive lesions of the spine and multiple bilateral ribs, new compared to CT chest of 2014 and most compatible with metastasis, compression deformity of the T6 vertebral body, unchanged from the radiograph dated October 2016 with pathological fracture, small right pleural effusion with subsegmental bibasilar opacities suggesting atelectasis, mild adenopathy in the chest unchanged from prior studies, suggesting reactive changes, 2.8cm hepatic lobe lesion, likely hepatic cyst. CT of the abdomen and pelvis shows extensive bony lesions likely secondary to metastatic disease or myeloma. Further workup was advocated, scattered lymph nodes at the upper limits of normal in size. EKG - sinus tachycardia at a rate of 102. No acute ST changes seen, no significant change was found from previous EKG. ASSESSMENT AND PLAN: This 71-year-old female who presents with back pain and lower chest pain. 1. Back pain and lower chest pain CT scan of the chest and CT of the abdomen and pelvis shows multiple bony lesions,. Hx of breast cancer. We will admit to medical floor. Pain control, gentle fluids. We will consult hematology/oncology for further recommendations for workup. 2. Chest pain most likely from the above, but will rule out acute coronary syndrome with enzymes and echocardiogram. 3. History of diabetes, hold p.o. medications. We will place on insulin sliding scale, Lantus 5 units b.i.d., follow the hemoglobin A1c levels. 4. History of hypothyroidism. Continue Synthroid. 5. History of gastroesophageal reflux disease. Continue proton pump inhibitor. 6. History of breast cancer in 2003, status post bilateral mastectomy, not following with any doctor as she was told everything taken out. 7. Possible urinary tract infection. We will check the urine cultures. No antibiotics at this time. 8. Deep venous thrombosis prophylaxis, Lovenox. DISPOSITION: Admit to medical floor. Expect to discharge home and follow with family doctor. Level 1 full code. Hospital Course This is a 71 year old female with a PMH of breast CA s/p bilateral total mastectomy in 2003, DM2, hypothyroidism presents with back pain, rib pain and found to have possible metastatic lesions S/P US Guided Biopsy of the Right axillary Lymph Node Biopsy result received Metastatic Adenocarcinoma of breast Not much tissue for further staining Will need repeat Biopsy Discussed with the Oncologist S/P Repeat Biopsy on 01/30/17 Feels better following the procedure Will discharge home today Metastatic Disease Presented with increasing Back pain Unknown primary with H/O of breast CA s/p total mastectomy Abdominal and chest CT suggests possible lytic lesions to the spine and bilateral ribs MRI of the Thoracic,Lumbar and Cervical Spine;Showed Metastatic Disease as below :: MRI of the thoracic spine (01/22/2017)--> -diffuse bony metastatic disease involving the cervical, thoracic and lumbar spine, mild posterior vertebral body expansion at C7, T1 and T6 vertebral levels with minor impingement on the anterior aspect of the spinal can now no evidence of significant spinal cord compression noted. MRI of the lumbar spine done on 01/23/2017--> - diffuse metastatic disease involving the spine and pelvic bones with tumor expansion of the L2 vertebral body extending 5 mm posteriorly causing mild to moderate central canal stenosis, multilevel DJD noted, no evidence of high- grade stenosis noted, MRI of the cervical spine done on 01/23/2017 -showed innumerable enhancing skeletal metastasis throughout the cervical and thoracic spine without high-grade stenosis, tumor expansion of the T1 vertebral body extends 5 mm posteriorly causing olhn-hu-bhysjlvf stenosis, multi level DJD noted. Right axillary ultrasound done on 01/26/2017 showed mildly enlarged right axillary lymph node measuring 1.5 x 1.1 x 1 cm, this lymph node has abnormal configuration. Appreciate ortho input Appreciate hem-onc consulted for further input and appreciate Radiation Oncology input She has had colonoscopy about 4 years prior with no findings; has had b/l salpingo-oophorectomy Previous smoker about 10 years prior; quit around 2006 S/P US guided biopsy of the right Axillary Lymph node-Pathology :: LYMPH NODE, RIGHT AXILLA, ULTRASOUND-GUIDED FINE NEEDLE ASPIRATION: POSITIVE FOR MALIGNANT CELLS, METASTATIC ADENOCARCINOMA CONSISTENT WITH BREAST PRIMARY. SEE COMMENT. Want of tissue for staining Repeat Biopsy done on 01/30/17-result pending DM2 Lantus 5 units BID On sliding scale Monitor BSGs Hypothyroidism Continue Synthroid DVT ppx Lovenox FULL CODE Disposition Discharge today Total time spent on discharge = 35 minutes This includes examination of the patient, discharge planning, medication reconciliation, and communication with other providers. Discharge Instructions Date of Service Jan 30, 2017. Admission Reason for Admission: Back Pain, Chest Pain Discharge Discharge Diagnosis / Problem: Metastatic Breast Cancer,Back Pain,DM Discharge Goals Goal(s): Prevent Disease Progression Activity Recommendations Activity Limitations: resume your previous activity (Take precaution to avoid fall) . Instructions / Follow-Up Instructions / Follow-Up Please make an appointment with your PCP in 1 week,Keep appointment with Radiation Oncology,Dr Tai's office will call with appointment Current Hospital Diet Patient's current hospital diet: AHA Diet (Heart Healthy), Diabetes Type 2 Diet Discharge Diet Recommended Diet: AHA Diet (Heart Healthy), Diabetes Type 2 Diet Pending Studies Studies pending at discharge: yes List of pending studies: Right Axillary node Biopsy Laboratory Results Hemoglobin A1c Test 01/22/17 06:02 Range/Units Estimated Average Glucose 126 mg/dl Hemoglobin A1c 6.0 H 4.5-5.6 % Medical Emergencies . Who to Call and When: Medical Emergencies: If at any time you feel your situation is an emergency, please call 911 immediately. . Non-Emergent Contact Non-Emergency issues call your: Primary Care Provider . 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 "Provider Documentation" section prepared by Jeff Patel. . Pelota Maker Recommendations Pelota Maker Recommendations: Important Note: The patient reports that she has had back/Thoracic pain for the last 2 months.She has pain when rolling over in her bed or with activity.She is most comfortable in resting position.A hospital bed would relieve her pain.Have talked with the patient about the need for a hospital bed. VTE Core Measure Inpt VTE Proph given/why not?: Enoxaparin (Lovenox)SQ <Electronically signed by Jeff Patel M.D.> Signed: 01/30/17 5839 Additional Copies To Wendy Chaves C.R.N.P.
[2017-02-02] MEDS ORDERED: FENTANYL PATCH REMOVE & WASTE SCH (10:29)
== END 2017-01-30 14:58 | disposition home health service (06) | DRG 516 ==
LOC: C.EDB 10:02 → C.4E 15:28 → ENRESERV 16:06
PROVIDERS: ADMIT Family Medicine; ATTEND Internal Medicine
PROC: 07953ZX Drainage of Right Axillary Lymphatic, Percutaneous Approach, Diagnostic (ICD-10-PCS; principal; 2017-01-27)
PROC: 07B53ZX Excision of Right Axillary Lymphatic, Percutaneous Approach, Diagnostic (ICD-10-PCS; 2017-01-30)
PROC: 07953ZX Drainage of Right Axillary Lymphatic, Percutaneous Approach, Diagnostic (ICD-10-PCS; 2017-01-30)
DX: C79.51 Secondary malignant neoplasm of bone (principal); C77.3 Secondary and unspecified malignant neoplasm of axilla and upper limb lymph nodes; S22.050A Wedge compression fracture of T5-T6 vertebra, initial encounter for closed fracture; E11.9 Type 2 diabetes mellitus without complications; E03.9 Hypothyroidism, unspecified; K21.9 Gastro-esophageal reflux disease without esophagitis; E66.9 Obesity, unspecified; Z68.32 Body mass index [BMI] 32.0-32.9, adult; Z85.3 Personal history of malignant neoplasm of breast; Z90.13 Acquired absence of bilateral breasts and nipples; Z86.19 Personal history of other infectious and parasitic diseases; Z86.69 Personal history of other diseases of the nervous system and sense organs; Z90.710 Acquired absence of both cervix and uterus; Z90.722 Acquired absence of ovaries, bilateral; Z90.49 Acquired absence of other specified parts of digestive tract; Z87.891 Personal history of nicotine dependence; Z79.84 Long term (current) use of oral hypoglycemic drugs; Z79.899 Other long term (current) drug therapy; Z91.040 Latex allergy status; Z82.3 Family history of stroke; Z82.49 Family history of ischemic heart disease and other diseases of the circulatory system

== ENCOUNTER → 2017-02-09 | Outpatient (CLI) | payer OTHER ==
[~2017-02-09] MED LIST changes: +DRGTP12 TD; +DRGTP25 TD; -DXY100 PO; +HYDR-5688 PO; +MRLP17X PO; -PRED20TA PO
--- NOTE | 2017-02-09 09:45 | DIAGNOSTIC IMAGING REPORT ---
PET/CT HISTORY: BREAST CANCER TECHNIQUE: PET/CT was performed from the base of the skull through the pelvis following the intravenous administration of 13.5 mCi of F18-FDG. Non-contrast CT imaging was performed over the same range without breath-hold for attenuation correction of PET images and anatomic correlation, but not for primary interpretation as it is not of standard diagnostic quality. CT DOSE: 548.35 mGycm COMPARISON: Cervical, thoracic, lumbar spine MRIs 01/23/2017 and 01/22/2017. Chest abdomen and pelvis CT 01/21/2017. FINDINGS: HEAD AND NECK: There is no FDG-avid disease or significant lymphadenopathy in the imaged portions of the head and the neck. CHEST: Small right pleural effusion. No FDG avid or suspicious pulmonary nodules. Stable prominent right peritracheal and subcarinal lymph nodes. The 1.8 x 0.7 cm subcarinal lymph node demonstrates mild FDG uptake with an SUV max of 2. There is minimal FDG uptake seen within the prominent right anterior diaphragmatic lymph nodes and previous a biopsy right axillary lymph node. ABDOMEN/PELVIS: Below the diaphragm, tracer is distributed physiologically in the gastrointestinal and genitourinary tracts. There is no significant lymphadenopathy and no FDG-avid disease. MUSCULOSKELETAL: Innumerable scattered lytic lesions seen throughout the visualized osseous structures most pronounced within the spine. Within the spine there or multifocal areas of soft tissue epidural extension and multiple compression fractures which are better appreciated on the prior MRIs. For example, the cervical spine demonstrated an SUV max of 5 at the C2 level. IMPRESSION: 1. Extensive FDG avid osteolytic disease seen throughout the visualized axial and appendicular skeleton. This is most pronounced within the spine. There are multiple compression deformities as well as epidural extension of the metastases within the spine. This is better appreciated on the prior MRIs. 2. Minimal to mild FDG uptake associated with a few of the lymph nodes within the chest and right axilla described above. This also likely represents metastatic disease. 3. Small right pleural effusion. Electronically signed by: Jose Elias Suarez M.D. 02/09/2017 9:43 AM Dictated Date/Time: 02/09/2017 9:28 AM
== END | disposition home or self-care (01) ==
LOC: C.PET 06:46
PROVIDERS: ATTEND Internal Medicine Hematology
DX: C50.111 Malignant neoplasm of central portion of right female breast (principal); Z17.0 Estrogen receptor positive status [ER+]

== ENCOUNTER → 2017-03-31 | Outpatient (CLI) | payer OTHER ==
[~2017-03-31] MED LIST changes: +FNTTP50 TD
[2017-03-31 17:29] LABS: HEMATOCRIT 36.3 % (37-47); MEAN CELL VOLUME 87.1 fL (80-100); MEAN CORPUSCULAR HEMOGLOBIN 26.9 pg (25-34); MEAN CORPUSCULAR HGB CONC 30.9 g/dl (32-36); MEAN PLATELET VOLUME 10.1 fL (7.4-10.4); PLATELET COUNT 302 K/uL (130-400); RED BLOOD COUNT 4.17 M/uL (4.2-5.4); WHITE BLOOD COUNT 5.12 K/uL (4.8-10.8)
[2017-03-31 17:48] LABS: AST/SGOT 18 U/L (15-37); BLOOD UREA NITROGEN 17 mg/dl (7-18); BUN/CREATININE RATIO 14.1 (10-20); CALCIUM 9.2 mg/dl (8.5-10.1); CARBON DIOXIDE 29 mmol/L (21-32); CHLORIDE 102 mmol/L (98-107); CREATININE 1.22 mg/dl (0.60-1.20); GLUCOSE 72 mg/dl (70-99); POTASSIUM 4.1 mmol/L (3.5-5.1); SODIUM 138 mmol/L (136-145)
[2017-03-31 17:58] LABS: ALB/GLOB RATIO 0.8 (0.9-2); ALKALINE PHOSPHATASE 117 U/L (45-117); ALT/SGPT 19 U/L (12-78); FERRITIN 96.8 ng/ml (8.0-388.0)
[2017-04-01 06:03] LABS: ESTIMATED AVERAGE GLUCOSE 111 mg/dl; HA1C FLAG Normal (Normal)
== END | disposition home or self-care (01) ==
LOC: C.LABBFT 11:15
PROVIDERS: ATTEND Nurse Practitioner
DX: N18.3 Chronic kidney disease, stage 3 (moderate) (principal); D64.9 Anemia, unspecified; E03.9 Hypothyroidism, unspecified; E55.9 Vitamin D deficiency, unspecified; E11.9 Type 2 diabetes mellitus without complications

== ENCOUNTER → 2017-04-01 | Outpatient (CLI) | payer OTHER ==
[2017-04-01 15:10] VITALS: BP 124/70; PULSE 116; TEMP 36.7; O2SAT 93
--- NOTE | 2017-04-01 16:18 | Radiation Oncology Follow-Up ---
Radiation Oncology Follow-Up Date of Visit Apr 01, 2017. 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 She received 3000 cGy Last Edited By: Aziza Roland on Feb 23, 2017 14:27 History of Present Illness Ms. Ponce underwent a biopsy of the right inferior breast on 09/29/2003. This showed a microinvasive ductal carcinoma with a Rodrigues Roche grade of 1 of 3. There was also low-grade ductal carcinoma in situ without necrosis. Specimen #[id number]. Patient went on to have bilateral mastectomy on 10/30/2003. The left breast total mastectomy showed no in situ or invasive carcinoma identified. The right breast total mastectomy revealed focal ductal carcinoma in situ with associated microcalcifications, cribriform without necrosis. Nuclear grade was 103. There was no invasive carcinoma identified. 2 sentinel lymph nodes were identified and both were negative for metastatic carcinoma on routine sections and immunohistochemical stains for cytokeratin. Specimen #: [id number]. No adjuvant radiation was required. No adjuvant systemic chemotherapy was required. Patient did not receive adjuvant antiestrogen therapy. More recently the patient has complained of back pain, chest pain and generalized pain with decreasing appetite and 20 pound weight loss. She was recently diagnosed with Lyme's disease and Green's palsy and completed 3 week course of antibiotics and a course of steroids. The back pain started several months ago but improved on the steroids. With the completion of the steroids the back pain has become more severe. She places the pain at a 6 without medication. With pain medication this improves to a 3 or 4. Patient denies any numbness or change in her muscle strength. On January 21 she presented to her family physician because of worsening back pain and chest pain. The pain was in the ribs right ribs and occasionally left ribs. She was felt to have a pleural effusion and was admitted for further evaluation and workup. A CT angiogram of the chest was done which was negative for pulmonary embolus. There was noted multiple lytic lesions of the spine as well as multiple bilateral ribs that are compatible with widespread metastatic disease. There was a compression deformity at T6 again seen unchanged from radiographs from 11/24/2016 compatible with a pathologic fracture. It was a low attenuating lesion in the left hepatic lobe measuring 2.8 cm which is stable likely representing up hepatic cyst. A small right pleural effusion with some segmental by basilar opacities suggesting atelectasis. CT scan of the abdomen and pelvis showed extensive lytic bony disease likely secondary to metastatic disease or possibly myeloma. No other abnormalities were appreciated. MRI of the thoracic spine was performed. This showed diffuse skeletal metastatic disease with involvement of nearly every cervical, thoracic and lumbar vertebral body. There was mild posterior vertebral body expansion at the C7, T1, T6, T9 levels with minor impingement on the anterior aspect of the spinal cord. There was also significant involvement of the L4 vertebral body. There was no current evidence of significant cord compression appreciated. The patient was started on pain medication initially consisting of Toradol and subsequently morphine. With pain medication his pain is significantly improved. She is able to move though there is increased pain with deep breathing or cough. The patient was seen by Dr. Frantz Tai for medical oncology input. We were asked to see her for discussion of the role of palliative radiation. She underwent palliative radiation therapy to the thoracic spine. This was completed 02/13/2017. She received 3000 cGy. Interim History She is steadily been improving over the past month. She's been followed by medical oncology and was started on Femara. She is tolerating this well. She does have some hot flashes. She is receiving Xgeva. Her pain is controlled. Today she gave a pain level of 0. When hospitalized her pain level was 6. With pain medications this would come down to a level III or 4. She does continue on a fentanyl patch 50 g per hour. This is changed every 72 hours. Following treatment she did develop dysphagia. Prescription was called in for MBXC. She use this for one week and was then improved and did not require any further pain medication for dysphagia. Allergies Coded Allergies: Adhesives (Verified Allergy, Mild, 01/21/17) Aloe (Verified Allergy, Mild, 01/21/17) Aspirin (Verified Allergy, Mild, 01/21/17) Latex1 -Allergic Contact Dermititis (Verified Allergy, Unknown, RASH, 01/21) Home Medications Scheduled Amitriptyline HCl (Amitriptyline HCl), 100 MG PO HS Cholecalciferol (Vitamin D3), 1 CAP PO DAILY Fentanyl (Duragesic), 50 MCG TD [id number] Ferrous Sulfate (Kp Ferrous Sulfate), 1 TAB PO 3XWK Glipizide (Glipizide Er), 1 TAB PO DAILY Levothyroxine Sodium (Synthroid), 25 MCG PO DAILY Metformin Hcl (Glucophage), 500 MG PO BID Potassium (Potassium), 99 MG PO DAILY Scheduled PRN Diclofenac Sodium (Topical) (Voltaren 1% Top Gel), 1 APPLN TOP UD PRN for Pain Hydrocodone/Acetaminophen 5MG/325MG ([place] 5MG/325MG), 1 TAB PO Q4 PRN for Pain Polyethylene (Miralax), 17 GM PO DAILY PRN for Constipation Review of Systems Gastrointestinal: Symptoms: Constipation GI Comments: Taking miralax daily Oral: Symptoms: No Problems Respiratory: Symptoms: SOB With Exertion Urinary: Symptoms: WNL Comments: not as often the last few days Skin: Symptoms: No Problems Physical Exam Vital Signs Date Time Temp Pulse Resp B/P (MAP) Pulse Ox O2 Delivery O2 Flow Rate FiO2 04/01/17 15:10 36.7 116 22 124/70 93 Fatigue: None General Appearance: no apparent distress Eyes: normal inspection, EOMI ENT: normal ENT inspection, hearing grossly normal Respiratory/Chest: lungs clear, no respiratory distress, no accessory muscle use, + pertinent finding (there is no tenderness in the area of the thoracic spine. There is no tenderness of the ribs laterally.) Cardiovascular: regular rate, rhythm, no gallop, no murmur Extremities: no pedal edema Neurologic/Psychiatric: no motor/sensory deficits, alert, normal mood/affect Pain Management Patient Reports Pain: No Pain Location: None Patient Preferred Pain Scale: 0 - 10 Initial Pain Intensity: 0.0 Pain Management Plan Patient denies pain today. Her pain is well-controlled with the fentanyl patch. Laboratory Laboratory Results: not applicable Pathology Pathology Results: not applicable Imaging Imaging Studies: not applicable Assessment & Plan Plan: Continue regular follow-up with Dr. Tai in medical oncology. She has a recheck appointment with him on 04/17/2017. She continues on the Femara and Xgeva. It is planned that she'll have a recheck PET scan in April to determine the effect of the hormonal therapy. Today we discussed her pulse. This was at 116. The pulse was rechecked and was 100. She does have a blood pressure and pulse monitor at home. I've asked her to keep a log of her pulse. If this continues to be elevated persistently over 100 she should talk to her primary care provider. She denies palpitations. She's had no shortness of breath. She denies anxiety. A follow-up with our office was not given. She' ll continue follow-up with medical oncology. She may return if she has any questions or concerns or if directed by Dr. Tai. Total Time In Follow-Up I spent 20 minutes speaking to the patient perform examination. I spent 15 minutes reviewing information in completing this note. Copy To Frantz Tai M.D.; Wendy Chaves, C.R.N.P.
== END | disposition home or self-care (01) ==
LOC: C.ONC 14:58
PROVIDERS: ATTEND Physician Assistant Medical
DX: Z08 Encounter for follow-up examination after completed treatment for malignant neoplasm (principal); Z92.3 Personal history of irradiation; Z85.3 Personal history of malignant neoplasm of breast

== ENCOUNTER → 2017-04-06 | Outpatient (CLI) | payer OTHER ==
[~2017-04-06] MED LIST changes: -DRGTP12 TD; -DRGTP25 TD; -PRLSR20 PO; -TRAM-10 PO
[2017-04-06 18:03] LABS: RATIO 6.9 mcg/mg (0-30.0)
== END | disposition home or self-care (01) ==
LOC: C.LABBFT 13:55
PROVIDERS: ATTEND Nurse Practitioner
DX: E11.9 Type 2 diabetes mellitus without complications (principal)

== ENCOUNTER → 2017-05-06 | Outpatient (CLI) | payer OTHER ==
--- NOTE | 2017-05-06 13:17 | DIAGNOSTIC IMAGING REPORT ---
PET/CT SKULL-THIGH HISTORY: Breast carcinoma BREAST CANCER TECHNIQUE: PET/CT was performed from the base of the skull through the pelvis following the intravenous administration of 14.8 mCi of F18-FDG. Non-contrast CT imaging was performed over the same range without breath-hold for attenuation correction of PET images and anatomic correlation, but not for primary interpretation as it is not of standard diagnostic quality. CT DOSE: COMPARISON: 02/09/2017 FINDINGS: HEAD AND NECK: There is no FDG-avid disease or significant lymphadenopathy in the imaged portions of the head and the neck. CHEST: Mild decrease in volume of right pleural effusion. No significant left pleural effusion. Stable axillary nodes bilaterally. ABDOMEN/PELVIS: Below the diaphragm, tracer is distributed physiologically in the gastrointestinal and genitourinary tracts. There is no significant lymphadenopathy and no FDG-avid disease. MUSCULOSKELETAL: Improvement in overall appearance of the patient's diffuse metastatic bone disease. Multiple areas now show evidence for developing sclerosis and/or partial healing. Metabolic activity characteristics are improved. Improved destructive process of the left shoulder which has been described previously. All additional bony metastatic findings again are demonstrating sclerosis and/or partial healing compared to the prior exam. No new or interval/progressive findings are present. IMPRESSION: 1. Improved exam. 2. No significant metabolically active katelin pathology is present currently. 3. Improvement of the right pleural effusion with small residual. 4. Diffuse bony metastatic change showing interval sclerosis/healing compared to the prior exam. 5. No evidence for new/interval, or progressive metastatic process. The above report was generated using voice recognition software. It may contain grammatical, syntax or spelling errors. Electronically signed by: Roger Allen M.D. 05/06/2017 1:16 PM Dictated Date/Time: 05/06/2017 1:09 PM
== END | disposition home or self-care (01) ==
LOC: C.PET 10:04
PROVIDERS: ATTEND Internal Medicine Hematology
DX: C50.111 Malignant neoplasm of central portion of right female breast (principal); C79.51 Secondary malignant neoplasm of bone

== ENCOUNTER → 2017-08-05 | Outpatient (CLI) | payer OTHER ==
--- NOTE | 2017-08-05 12:04 | DIAGNOSTIC IMAGING REPORT ---
PET/CT CLINICAL HISTORY: Breast cancer. COMPARISON STUDY: PET/CT dated 05/06/2017. TECHNIQUE: One hour following the IV administration of 14.93 mCi of F-18 FDG, PET/CT examination was performed from the orbital meatal line through the bony pelvis. Noncontrast CT is performed for the purposes of anatomic correlation and attenuation correction. Note that this does not reflect a diagnostic CT examination. Images were reviewed on a separate [employer] independent workstation. Fused images were obtained. Standard uptake values reported are maximum values within the region of interest expressed in gm/mL. FINDINGS: PET FINDINGS: Head and neck: There is expected physiologic activity within the visualized brain parenchyma at the skull base and the salivary glands. Thorax: Evaluation of the thorax demonstrates expected physiologic myocardial activity. The breasts are surgically absent. No pathologically enlarged or FDG avid axillary or subpectoral lymph nodes are identified. There is a trace right pleural effusion with fibrotic change is seen at the medial right lung base. There is FDG activity within the pleural effusion and the consolidation which demonstrates a maximum SUV of 4.0. Abdomen and pelvis: There is expected activity within the liver, spleen, kidneys, renal collecting system, and bladder. Low-level bowel activity is likely within physical limits. Skeletal structures: Findings of diffuse/multifocal next lytic and blastic metastatic disease have not significantly changed as compared to the 05/06/2017 examination. Lesions are present throughout all visualized bony structures. Only faint FDG activity is identified. The greatest activity is seen within the sacrum and and right ilium and demonstrates a maximum SUV of 3.0. Unenhanced CT images: Partially imaged brain parenchyma the skull base is grossly normal in appearance. The orbital contents are normal as visualized. The imaged paranasal sinuses and the mastoid air cells are clear. The salivary and thyroid glands are normal as visualized. No cervical adenopathy is identified. There is mild atherosclerotic calcification of the thoracic aorta which is normal in caliber. The heart is mildly enlarged and without pericardial effusion. There is a trace right pleural effusion. Mild emphysematous change is noted. Scarring/fibrosis is present the medial right lung base. No mediastinal or hilar adenopathy is seen. A 2.0 cm cyst is noted in the left hepatic lobe. The unenhanced liver is otherwise normal as imaged. The unenhanced spleen, adrenal glands, kidneys, and pancreas are grossly unremarkable. The gallbladder is surgically absent. The abdominal aorta is normal in caliber noting mild to moderate atherosclerotic calcification. No bowel obstruction is identified. Mild colonic fecal retention is observed. A normal appendix is identified. There is no abdominal, pelvic, or inguinal lymphadenopathy. A calcified note is incidentally noted adjacent to the pancreatic head. The bladder is decompressed and grossly unremarkable. The uterus is surgically absent. No adnexal lesion is seen. The skeletal structures are osteopenic. IMPRESSION: 1. There is no evidence of progressive metastatic disease. 2. Diffuse/multifocal mixed osteolytic and osteoblastic metastatic disease has not significantly changed in appearance from 05/06/2017. Only faint FDG activity is identified. 3. There is a trace right pleural effusion with fibrotic appearing change the medial right lung base. This demonstrate mild FDG activity and may be treatment related. No definite soft tissue lesion is identified. Continued attention at follow-up is recommended. 4. Mild emphysema. 5. Additional findings as above. Electronically signed by: Lencho Jean M.D. 08/05/2017 12:03 PM Dictated Date/Time: 08/05/2017 11:50 AM
== END | disposition home or self-care (01) ==
LOC: C.PET 08:54
PROVIDERS: ATTEND Internal Medicine Hematology
DX: C50.111 Malignant neoplasm of central portion of right female breast (principal); C79.51 Secondary malignant neoplasm of bone; Z17.0 Estrogen receptor positive status [ER+]

== ENCOUNTER 2018-04-26 11:22 | Inpatient (IN) ==
[2018-04-26] MEDS ORDERED: ONDANSETRON INJ 2 MG/ML 2 ML VIAL ONE (11:47)
[2018-04-26 12:07] LABS: Basophils # (auto) 0.01 K/uL (0-0.2); Basophils % (auto) 0.2 %; Eosinophils # (auto) 0.17 K/uL (0-0.5); Hematocrit (blood only) 38.3 % (37-47); Hemoglobin 12.1 g/dL (12.0-16.0); Immature Granulocytes # (auto) 0.01 K/uL (0.00-0.02); Immature Granulocytes % (auto) 0.2 %; Lymphocytes # (auto) 0.61 K/uL (1.2-3.4); Lymphocytes % (auto) 14.2 %; Mean Corpuscular Hgb Conc 31.6 g/dL (32-36); Mean Corpuscular Volume 88.7 fL (80-100); Mean Platelet Volume 10.1 fL (7.4-10.4); Monocytes # (auto) 0.19 K/uL (0.11-0.59); Monocytes % (auto) 4.4 %; Neutrophils # (auto) 3.31 K/uL (1.4-6.5); Platelet Count 229 K/uL (130-400); RDW Coefficient of Variation 15.7 % (11.5-14.5); RDW Standard Deviation 51.2 fL (36.4-46.3); Red Blood Count 4.32 M/uL (4.2-5.4)
[2018-04-26 12:15] LABS: Alanine Aminotransferase 33 U/L (12-78); Albumin Level 3.4 gm/dl (3.4-5.0); Aspartate Aminotransferase 23 U/L (15-37); BUN Creatinine Ratio 17.1 (10-20); Blood Urea Nitrogen 24 mg/dl (7-18); Carbon Dioxide 29 mmol/L (21-32); Chloride 100 mmol/L (98-107); Creatinine Clr Calc Pharmacy 42.3 ml/min; Est GFR (African American) 43.8; Est GFR (Non-African American) 37.8; Glucose 159 mg/dl (70-99); Magnesium 2.1 mg/dl (1.8-2.4); Potassium 3.7 mmol/L (3.5-5.1); Sodium 136 mmol/L (136-145)
[2018-04-26 12:25] LABS: Albumin Globulin Ratio 0.7 (0.9-2); Alkaline Phosphatase 71 U/L (45-117); Bilirubin,Total 0.3 mg/dl (0.2-1); Globulin 5.1 gm/dl (2.5-4.0); Total Protein 8.5 gm/dl (6.4-8.2); Troponin I < 0.015 ng/ml (0-0.045)
[2018-04-26 12:38] LABS: T4 Free Thyroxine 1.35 ng/dl (0.8-1.6)
[2018-04-26] MEDS ORDERED: IOVERSOL 100ml IV PRN (13:11)
[2018-04-26 13:19] LABS: Influenza A virus by PCR Neg for Influ A (Neg); Influenza B virus by PCR Neg for Influ B (Neg)
--- NOTE | 2018-04-26 13:19 | CT Scan Report ---
CT head/brain wo con CLINICAL HISTORY: 72 years-old Female with weakness. Acute weakness . History of breast cancer. TECHNIQUE: Multiple axial CT images of the head were obtained without contrast. A dose lowering tech nique was utilized adhering to the principles of ALARA. COMPARISON: PET CT 03/01/2018, head CT 12/14/2016. FINDINGS: No acute intracranial hemorrhage, midline shift, intracranial mass, hydrocephalus, territorial ischem ia or abnormal extra-axial collection. 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 Mild atrophy. Ill-defined hypodensities about the white matter are suggestive of chronic micr ovascular ischemic changes. The calvarium is intact. The paranasal sinuses, mastoid air cells, and middle ear cavities are clear . IMPRESSION: No acute intracranial abnormality. The above report was generated using voice recognition software. It may contain grammatical, syntax o r spelling errors. Electronically signed by: Jus Burks M.D. 04/26/2018 1:17 PM
--- NOTE | 2018-04-26 13:23 | XRay Report ---
XR chest 1V portable CLINICAL HISTORY: Weakness. COMPARISON STUDY: Chest radiograph January 24, 2017. FINDINGS: There is no pneumothorax or pleural effusion. There is mild bibasilar opacity. There is no evidence for pulmonary edema. Cardiomediastinal silhouette is unremarkable. IMPRESSION: Mild bibasilar opacities, left greater than right. The findings may reflect pneumonia or atelectasis. Electronically signed by: Desmond Silverio M.D. 04/26/2018 1:22 PM
--- NOTE | 2018-04-26 13:37 | CT Scan Report ---
CT ANGIOGRAM OF THE CHEST; CT SCAN OF THE ABDOMEN AND PELVIS WITH IV CONTRAST CLINICAL HISTORY: Dyspnea. Tachycardia. Nausea. Weakness. History of metastatic breast cancer. COMPARISON STUDY: Chest CT scans dated 01/21/2017 and 06/20/2013. Abdominal CT dated 01/21/2017. PET/CT dated 03/01/2018. TECHNIQUE: Following the IV administration of 94 of Optiray 320, CT angiogram of the chest is perform ed from the upper abdomen to the thoracic inlet utilizing the pulmonary embolus protocol. Images are reviewed in the axial, sagittal, coronal planes. 3-D MIPS images are created and assessed. Subsequent ly, CT scan of the abdomen and pelvis was performed from the lung bases to the proximal femora. Image s are reviewed in the axial, sagittal, and coronal planes. IV contrast was administered without compl ication. A dose lowering technique was utilized adhering to the principles of ALARA. The examination is degraded by streak artifact from the arms which could not elevated above the chest or abdomen as w ell as by motion artifact. CT DOSE: 2200.80 mGy.cm FINDINGS: CHEST: Thyroid: Imaged portions of the thyroid gland are normal in size and attenuation. Thoracic aorta: There is mild atherosclerotic calcification of the thoracic aorta, which is normal in caliber and demonstrates standard 3-vessel arch anatomy. No dissection is seen. Pulmonary vasculature: The pulmonary trunk is normal in caliber. There are no filling defects identif ied in the main, lobar, or proximal segmental pulmonary arteries to indicate pulmonary embolus. Evalu ation of the peripheral branches is degraded by streak and motion artifact. Heart: The heart is mildly enlarged and without pericardial effusion. Lungs and pleural spaces: Evaluation of the lung parenchyma is degraded by motion artifact. Mild emph ysematous change is noted. There are trace pleural effusions. Patchy airspace consolidation is seen a t the left lung base. Scarring/atelectasis is noted at the right lung base. The trachea and central a irways are clear. Mediastinum: Mildly enlarged mediastinal lymph nodes are similar to previous. A high right peritrache al node seen on image #219 measures 11 mm in short axis. A pretracheal node on image #171 measures 10 mm in short axis. Zayra: Clear. Axillae: There is no pathologically enlarged axillary lymph nodes. Bony thorax: The skeletal structures are osteopenic. Extensive multifocal mixed osteolytic/blastic me tastatic disease has not significantly changed from previous. Compression deformities are seen involv ing T1, T2, T3, T6, and T9. Retropulsed fragments are seen at T6 and T9. There is no evidence of high -grade central canal stenosis. The T9 compression deformity is new from 01/21/2017. There are healed b ilateral rib fractures. Soft tissues: The breasts are surgically absent. ABDOMEN AND PELVIS: Liver: The contrast-enhanced liver is normal in size, contour, and attenuation. There is no intrahepa tic or ductal dilatation. The hepatic veins and portal veins are patent. A 2.7 cm cyst in the left lo be is unchanged. Gallbladder: Surgically absent noting clips in the gallbladder fossa. Spleen: Normal in size and attenuation. A calcification lung the posterior splenic capsule is of doub tful significance and unchanged from previous. Pancreas: Atrophic and grossly unremarkable. Adrenal glands: There is nodular thickening of both adrenal glands. Kidneys: The contrast enhanced kidneys demonstrate cortical atrophy and are without hydronephrosis. T he kidneys enhance and excrete symmetrically. Scattered subcentimeter cortical hypodensities likely r epresent cysts but are too small for definitive characterization. Abdominal vasculature: The abdominal aorta is normal in course and caliber noting mild to moderate at herosclerotic calcification. Bowel: Colonic fecal retention is observed. No bowel obstruction is seen. The appendix is well-visua lized and normal. Peritoneum: There is no intraperitoneal free air or abdominal ascites. There is a small fat-containin g umbilical hernia. Lymphadenopathy: Prominent retroperitoneal lymph nodes measure up to 9 mm in short axis. There is no pelvic sidewall, mesenteric, or inguinal lymphadenopathy. Calcified nodes adjacent the pancreatic hea d are similar to prior studies. Pelvic viscera: The bladder is normal as visualized. The uterus is surgically absent. No adnexal lesi on is seen. Skeletal structures: The skeletal structures are osteopenic. Extensive/multifocal mixed osteolytic/bl astic metastatic disease has not significantly changed from 03/01/2018 PET examination. There is a mod erate compression deformity of L2. IMPRESSION: 1. Streak and motion compromised examination. 2. There is no evidence of pulmonary embolus in the main, lobar, or proximal segmental pulmonary aleida humble. 3. Cardiomegaly and mild emphysema. 4. Patchy airspace consolidation at the left lung base is new from previous. This likely represents p neumonia and clinical correlation will be required. Radiographic follow-up to resolution is recommend ed. 5. There are no acute infectious or inflammatory findings in the abdomen or pelvis. 6. Trace pleural effusions. 7. Extensive/multifocal osseous metastatic disease has not appreciably changed from the 03/01/2018 PET examination. 8. Additional findings as above. Electronically signed by: Lencho Jean M.D. 04/26/2018 1:36 PM
[2018-04-26] MEDS ORDERED: cefTRIAXone SODIUM 1,000 MG/50 ML BAG IV STA (14:17)
[2018-04-26] MEDS ORDERED: AZITHROMYCIN 250 MG TAB PO ONE (14:17)
--- NOTE | 2018-04-26 15:39 | History & Physical Report ---
Date of Service April 26, 2018 Assessment & Plan (1) Pneumonia: Patient presently afebrile, slightly tachycardic, blood pressure stable, no respiratory distress, adequate oxygenation on room air. Curb 65 score = 2 ( BUN of 24, age 72) associated with moderate risk, 6.8% 30-day mortality. Given patient's medical comorbidities will admit for IV antibiotics * Admit to medical floor * Follow culture results * Ceftriaxone 1 g IV daily for treatment of CAP * Azithromycin 250 mg IV daily for treatment of CAP * Robitussin as needed * Albuterol as needed * Incentive spirometry every 2 hours while awake * Present on Admission?: Yes (2) MIKHAIL (acute kidney injury): BUN = 24, creatinine = 1.38. Increase from 17 and 1.22 on 03/31/18. Patient appears dry on exam. Reports adequate urine output. * IV fluid with normal saline solution at 100 mL/h x 2 L * Monitor BUN, creatinine, urine output and electrolytes * Avoid nephrotoxic agents * Repeat BMP in AM * (3) Diabetes: Patient reports adequate blood sugar control on metformin and glipizide. Last hemoglobin A1c 5.5 in March 2017 * Will hold metformin and glipizide for now * Lantus 7 units twice daily with insulin sliding scale based on weight * Check A1c with morning labs * Present on Admission?: Yes (4) Breast cancer: Patient with metastatic breast cancer. Follows with Dr. Tai from [facility]. * Continue Xgeva * Continue letrozole * Continue pain management with fentanyl 50 mcg patch. To be changed tomorrow * Continue pain management with hydrocodone as needed * (5) Multiple sclerosis: Patient reports this being well controlled. * Continue amitriptyline for symptomatic management * (6) Hypothyroidism: Slightly low TSH 0.295, normal T4 1.35 * Continue Synthroid * F/E/N: NSS at 100mL/hr x 2 liters, monitor electrolytes and replete as needed, continue home electrolyte supplements K and PO4, CC diet as tolerated Ppx - Lovenox for DVT prophylaxis Code - DNR per discussion with patient Dispo - Admit to medical floor for CAP History of Present Illness Chief Complaint: dizziness, weakness Primary Care Provider: MAYCOL Shah Patient is a 72-year-old female presenting with dizziness and lightheadedness as well as productive cough and sweats. 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 Also with diabetes and MS. Patient reports 3 days of dizziness and lightheadedness, feeling as though she was going to pass out. Not related to positional changes. No report of the room spinning. No headache, numbness, tingling or focal weakness. She had a prolonged hot flash yesterday with diffuse sweating requiring her to change her bed sheets. Also complaining of diffuse weakness, chest congestion, cough productive for clear phlegm. Also had some mild nausea and loose stools. She denies chest pain, palpitations, syncope. Denies abdominal pain, vomiting or constipation. Denies shortness of breath or wheeze. No dysuria or flank pain. Upon arrival to the ER she was afebrile, sinus tachycardia 110 bpm, blood pressure stable, no respiratory distress, saturating 95% on room air. CT of the chest suggestive of pneumonia. Patient with no additional complaints at this time ER course: Azithromycin 500 mg, ceftriaxone 1 g, Zofran Allergies Allergy/AdvReac Type Severity Reaction Status Date / Time adhesive Allergy Mild Verified 04/26/18 12:06 aloe Allergy Mild Verified 04/26/18 12:06 aspirin Allergy Mild Verified 04/26/18 12:06 latex Allergy Unknown RASH Verified 04/26/18 12:06 Home Medications Home Medications Medication Instructions Recorded Confirmed Type acetaminophen [Tylenol Extra 100 mg PO Q6H PRN 04/26/18 04/26/18 History Strength] amitriptyline 100 mg PO HS 04/26/18 04/26/18 History cholecalciferol (vitamin D3) 1,000 unit PO BID 04/26/18 04/26/18 History [Vitamin D3] denosumab [Xgeva] 120 mg SUBCUT MONTHLY 04/26/18 04/26/18 History fentanyl 50 mcg TRANSDERMAL Q72H 04/26/18 04/26/18 History ferrous sulfate 325 mg PO 3XWK 04/26/18 04/26/18 History glipizide 2.5 mg PO QAM 04/26/18 04/26/18 History hydrocodone-acetaminophen 1 tab PO Q4H PRN 04/26/18 04/26/18 History letrozole 2.5 mg PO QAM 04/26/18 04/26/18 History levothyroxine 25 mcg PO QAM 04/26/18 04/26/18 History metformin 500 mg PO QAM 04/26/18 04/26/18 History polyethylene glycol 3350 [Miralax] 17 g PO DAILY PRN 04/26/18 04/26/18 History potassium 99 mg PO QAM 04/26/18 04/26/18 History sod phos di, mono-K phos mono 1 tab PO BID 04/26/18 04/26/18 History [Phosphorous] Past Med/Surg History Medical History Diabetes (Chronic) Multiple sclerosis (Chronic) Breast cancer (Resolved) Green's palsy (Acute) Carcinoma, metastatic (Acute) "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 Resolution of Green's palsy status post treatment and Lyme disease Continued back pain Hospitalization for back pain and rib pain finding of widespread metastatic disease" Surgical History S/P mastectomy, bilateral (Resolved) S/P hysterectomy (Resolved) S/P cholecystectomy (Resolved) Family History Other Heart failure Hypertension Social History Current Living Situation: Alone Other Information That Helps Us Care for You: No Feels Safe at Home: Yes Safety Concerns: Feels Safe At This Time Smoking Status: Former smoker Do You Dip or Chew Tobacco: No Smoking End Date: 2002 Second Hand Exposure: No Tobacco Cessation Education Requested by Patient: No Hx Alcohol Use: No Hx Substance Use: No Beliefs That Will Affect Care: None Preferred Language: Luxembourger Communication Ability: Effective Forensic Accountant Required: No Review of Systems All systems reviewed & are unremarkable except as noted in HPI & below Physical Exam 2 Vital Signs (Past 24 Hours): Last Vital Signs Temp 36.8 C 04/26/18 11:25 Pulse 110 H 04/26/18 13:23 Resp 18 04/26/18 13:23 BP 118/69 04/26/18 13:23 Pulse Ox 95 04/26/18 13:23 Physical Exam: General: patient resting comfortably, NAD, non-toxic in appearance, AA&O x 4 Skin: warm, dry, intact, no rashes or lesions HEENT: NC/AT, PERRL, EOMI, anicteric sclera, conjunctiva without injection, external ear normal to inspection and nontender, nares patent, slightly dry mucus membranes, dentition intact, no oropharyngeal lesions, neck supple, trachea midline, no LAD, no thyromegaly, no JVD Heart: +S1/S2, regular, tachycardic, no m/r/g, surgical absence of bilateral breasts Lungs: equal air entry bilaterally, crackles in bilateral bases, end expiratory wheeze noted left anterior lung field Abd: +BS, soft, NT/ND, no masses/organomegaly/ascites Ext: warm, 2+ pulses in UE/LE bilaterally, no clubbing/cyanosis or edema Neuro: nonfocal, patient AA&O x 4, speech intact, no facial droop, moving all extremities on command with equal strength 5/5 Results & Data Laboratory Results Lab Results 04/26/18 04/26/18 04/26/18 Range/Units 11:43 11:43 12:38 WBC 4.30 L (4.8-10.8) K/uL RBC 4.32 (4.2-5.4) M/uL Hgb 12.1 (12.0-16.0) g/dL Hct 38.3 (37-47) % MCV 88.7 (80-100) fL MCH 28.0 (25-34) pg MCHC 31.6 L (32-36) g/dL RDW Std Deviation 51.2 H (36.4-46.3) fL RDW Coeff of Gonzalez 15.7 H (11.5-14.5) % Plt Count 229 (130-400) K/uL MPV 10.1 (7.4-10.4) fL Immature Gran % (Auto) 0.2 % Neut % (Auto) 77.0 % Lymph % (Auto) 14.2 % Johnson % (Auto) 4.4 % Eos % (Auto) 4.0 % Baso % (Auto) 0.2 % Immature Gran # (Auto) 0.01 (0.00-0.02) K/uL Neut # (Auto) 3.31 (1.4-6.5) K/uL Lymph # (Auto) 0.61 L (1.2-3.4) K/uL Johnson # (Auto) 0.19 (0.11-0.59) K/uL Eos # (Auto) 0.17 (0-0.5) K/uL Baso # (Auto) 0.01 (0-0.2) K/uL Sodium 136 (136-145) mmol/L Potassium 3.7 (3.5-5.1) mmol/L Chloride 100 (98-107) mmol/L Carbon Dioxide 29 (21-32) mmol/L Anion Gap 7.0 (3-11) BUN 24 H (7-18) mg/dl Creatinine 1.38 H (0.6-1.2) mg/dl Est Cr Clr Drug Dosing 42.3 ml/min Est GFR ( Amer) 43.8 Est GFR (Non-Af Amer) 37.8 BUN/Creatinine Ratio 17.1 (10-20) Glucose 159 H (70-99) mg/dl Calcium 9.0 (8.5-10.1) mg/dl Magnesium 2.1 (1.8-2.4) mg/dl Total Bilirubin 0.3 (0.2-1) mg/dl AST 23 (15-37) U/L ALT 33 (12-78) U/L Alkaline Phosphatase 71 (45-117) U/L Troponin I < 0.015 (0-0.045) ng/ml Total Protein 8.5 H (6.4-8.2) gm/dl Albumin 3.4 (3.4-5.0) gm/dl Globulin 5.1 H (2.5-4.0) gm/dl Albumin/Globulin Ratio 0.7 L (0.9-2) Lipase 171 (73-393) U/L TSH 0.295 L (0.300-4.500) uIu/ml Free T4 1.35 (0.8-1.6) ng/dl Influenza Type A (PCR) Neg for Influ A (Neg) Influenza Type B (PCR) Neg for Influ B (Neg) Diagnostic Findings CT ANGIOGRAM OF THE CHEST; CT SCAN OF THE ABDOMEN AND PELVIS WITH IV CONTRAST CLINICAL HISTORY: Dyspnea. Tachycardia. Nausea. Weakness. History of metastatic breast cancer. COMPARISON STUDY: Chest CT scans dated 01/21/2017 and 06/20/2013. Abdominal CT dated 01/21/2017. PET/CT dated 03/01/2018. TECHNIQUE: Following the IV administration of 94 of Optiray 320, CT angiogram of the chest is performed from the upper abdomen to the thoracic inlet utilizing the pulmonary embolus protocol. Images are reviewed in the axial, sagittal, coronal planes. 3-D MIPS images are created and assessed. Subsequently , CT scan of the abdomen and pelvis was performed from the lung bases to the proximal femora. Images are reviewed in the axial, sagittal, and coronal planes. IV contrast was administered without complication. A dose lowering technique was utilized adhering to the principles of ALARA. The examination is degraded by streak artifact from the arms which could not elevated above the chest or abdomen as well as by motion artifact. CT DOSE: 2200.80 mGy.cm FINDINGS: CHEST: Thyroid: Imaged portions of the thyroid gland are normal in size and attenuation. Thoracic aorta: There is mild atherosclerotic calcification of the thoracic aorta, which is normal in caliber and demonstrates standard 3-vessel arch anatomy. No dissection is seen. Pulmonary vasculature: The pulmonary trunk is normal in caliber. There are no filling defects identified in the main, lobar, or proximal segmental pulmonary arteries to indicate pulmonary embolus. Evaluation of the peripheral branches is degraded by streak and motion artifact. Heart: The heart is mildly enlarged and without pericardial effusion. Lungs and pleural spaces: Evaluation of the lung parenchyma is degraded by motion artifact. Mild emphysematous change is noted. There are trace pleural effusions. Patchy airspace consolidation is seen at the left lung base. Scarring /atelectasis is noted at the right lung base. The trachea and central airways are clear. Mediastinum: Mildly enlarged mediastinal lymph nodes are similar to previous. A high right peritracheal node seen on image #219 measures 11 mm in short axis. A pretracheal node on image #171 measures 10 mm in short axis. Zayra: Clear. Axillae: There is no pathologically enlarged axillary lymph nodes. Bony thorax: The skeletal structures are osteopenic. Extensive multifocal mixed osteolytic/blastic metastatic disease has not significantly changed from previous. Compression deformities are seen involving T1, T2, T3, T6, and T9. Retropulsed fragments are seen at T6 and T9. There is no evidence of high-grade central canal stenosis. The T9 compression deformity is new from 01/21/2017. There are healed bilateral rib fractures. Soft tissues: The breasts are surgically absent. ABDOMEN AND PELVIS: Liver: The contrast-enhanced liver is normal in size, contour, and attenuation. There is no intrahepatic or ductal dilatation. The hepatic veins and portal veins are patent. A 2.7 cm cyst in the left lobe is unchanged. Gallbladder: Surgically absent noting clips in the gallbladder fossa. Spleen: Normal in size and attenuation. A calcification lung the posterior splenic capsule is of doubtful significance and unchanged from previous. Pancreas: Atrophic and grossly unremarkable. Adrenal glands: There is nodular thickening of both adrenal glands. Kidneys: The contrast enhanced kidneys demonstrate cortical atrophy and are without hydronephrosis. The kidneys enhance and excrete symmetrically. Scattered subcentimeter cortical hypodensities likely represent cysts but are too small for definitive characterization. Abdominal vasculature: The abdominal aorta is normal in course and caliber noting mild to moderate atherosclerotic calcification. Bowel: Colonic fecal retention is observed. No bowel obstruction is seen. The appendix is well-visualized and normal. Peritoneum: There is no intraperitoneal free air or abdominal ascites. There is a small fat-containing umbilical hernia. Lymphadenopathy: Prominent retroperitoneal lymph nodes measure up to 9 mm in short axis. There is no pelvic sidewall, mesenteric, or inguinal lymphadenopathy. Calcified nodes adjacent the pancreatic head are similar to prior studies. Pelvic viscera: The bladder is normal as visualized. The uterus is surgically absent. No adnexal lesion is seen. Skeletal structures: The skeletal structures are osteopenic. Extensive/ multifocal mixed osteolytic/blastic metastatic disease has not significantly changed from 03/01/2018 PET examination. There is a moderate compression deformity of L2. IMPRESSION: 1. Streak and motion compromised examination. 2. There is no evidence of pulmonary embolus in the main, lobar, or proximal segmental pulmonary arteries. 3. Cardiomegaly and mild emphysema. 4. Patchy airspace consolidation at the left lung base is new from previous. This likely represents pneumonia and clinical correlation will be required. Radiographic follow-up to resolution is recommended. 5. There are no acute infectious or inflammatory findings in the abdomen or pelvis. 6. Trace pleural effusions. 7. Extensive/multifocal osseous metastatic disease has not appreciably changed from the 03/01/2018 PET examination. 8. Additional findings as above. Electronically signed by: Lencho Jean M.D. 04/26/2018 1:[address] head/brain wo con CLINICAL HISTORY: 72 years-old Female with weakness. Acute weakness . History of breast cancer. TECHNIQUE: Multiple axial CT images of the head were obtained without contrast. A dose lowering technique was utilized adhering to the principles of ALARA. COMPARISON: PET CT 03/01/2018, head CT 12/14/2016. FINDINGS: No acute intracranial hemorrhage, midline shift, intracranial mass, hydrocephalus, territorial ischemia or abnormal extra-axial collection. 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 Mild atrophy. Ill -defined hypodensities about the white matter are suggestive of chronic microvascular ischemic changes. The calvarium is intact. The paranasal sinuses, mastoid air cells, and middle ear cavities are clear. IMPRESSION: No acute intracranial abnormality. The above report was generated using voice recognition software. It may contain grammatical, syntax or spelling errors. Electronically signed by: Jus Burks M.D. 04/26/2018 1:17 PM XR chest 1V portable CLINICAL HISTORY: Weakness. COMPARISON STUDY: Chest radiograph January 24, 2017. FINDINGS: There is no pneumothorax or pleural effusion. There is mild bibasilar opacity. There is no evidence for pulmonary edema. Cardiomediastinal silhouette is unremarkable. IMPRESSION: Mild bibasilar opacities, left greater than right. The findings may reflect pneumonia or atelectasis. Electronically signed by: Desmond Silverio M.D. 04/26/2018 1:22 PM Dictated: 04/26/18 1321 Transcribed: 04/26/18 1321 ECG Additional Comments: Sinus tachycardia at 114bpm, left axis deviation NM=300, QRS=90, GSz=064, inferior infarct, poor R wave progression, no acute ischemia Code Status & VTE Plan Code Status DNR per discussion with patient VTE Prophylaxis Plan VTE Prophylaxis will be ordered: Yes Critical Care Time Critical Care Time: No _ (1) Pneumonia Pneumonia type: due to unspecified organism Laterality: left Lung location: lower lobe of lung Qualified Code(s): J18.1 - Lobar pneumonia, unspecified organism (2) Diabetes Diabetes mellitus type: type 2 Diabetes mellitus law tutor insulin use: without law tutor use Diabetes mellitus complication status: without complication Qualified Code(s): E11.9 - Type 2 diabetes mellitus without complications
[2018-04-26] MEDS ORDERED: GLUCOSE 40% GEL 15 GM TUBE PO PRN (16:57)
[2018-04-26] MEDS ORDERED: ALBUTEROL 0.5% NEB SOLN 2.5 MG/0.5 ML VIAL NEB PRN (16:57)
[2018-04-26] MEDS ORDERED: HYDROCODONE/ACETAMOPHEN 5/325MG TAB PO PRN (16:57)
[2018-04-26] MEDS ORDERED: GLUCAGON FOR INJ 1 MG VIAL SQ PRN (16:57)
[2018-04-26] MEDS ORDERED: ACETAMINOPHEN 325 MG TAB PO PRN (16:57)
[2018-04-26] MEDS ORDERED: GLUCOSE 10 TABS/TUBE PO PRN (16:57)
[2018-04-26] MEDS ORDERED: CARBOHYDRATES FOR HYPOGLYCEMIA PO PRN (16:57)
[2018-04-26] MEDS ORDERED: DEXTROSE 50% 50 ML SYRINGE IV PRN (16:57)
[2018-04-26 17:49] LABS: Prothrombin Time 10.2 Seconds (9.0-12.0)
[2018-04-26 18:11] LABS: Appearance Urine Clear (Clear); Bilirubin Urine Negative (Negative); Color Urine Yellow; Glucose Urine UA Negative (Negative); Ketones Urine Negative (Negative); Leukocyte Esterase Urine Negative (Negative); Nitrite Urine Negative (Negative); Protein Urine Negative (Negative); Specific Gravity Urine > 1.045 (1.000-1.030); Urobilinogen Urine Negative (Negative)
[2018-04-26] MEDS: SODIUM CHLORIDE 0.9% 500 ML IV SCH ×2 (18:52→23:55)
[2018-04-26] MEDS: INSULIN ASPART 100 UNITS/ML 3 ML PEN SC SCH ×2 (18:54→21:28)
[2018-04-26] MEDS: ENOXAPARIN INJ 40 MG/0.4 ML SYR SQ SCH (18:58)
--- NOTE | 2018-04-26 19:42 | Emergency Department Note ---
Entered by Tosin Heart acting as a scribe for Curtis Blair M.D. History of Present Illness General Chief complaint: Weakness Stated complaint: DIZZINESS,WEAKNESS Time Seen by Provider: 04/26/18 11:54 Source: patient and family History of Present Illness Onset (ago): day(s) 4 Location: head (Weakness) Pain Consistency: + other (Persistent) Maximum Pain Intensity: 0 Quality: + other (Weakness) Relieved By: + rest Exacerbated By: + movement Associated symptoms: + loss of appetite, + nausea/vomiting (Positive nausea. Negative vomiting.), + weakness and + other (Light headed, congestion, insomnia , fatigue); no fever/chills, no headaches and no shortness of breath The patient is a 72 year old female who presents to the Emergency Room with complaints of persistent weakness starting 4 days ago. The patient reports that for the past 4 days she has felt nauseous, light headed and congested. She notes that she has lost her appetite. She adds that she has not been sleeping well and feels very fatigued. The patient states that movement worsens her symptoms. She states that she sees Dr. Tai oncologist for her breast cancer. The patients family reports that the patients PCP recommended that she come to the ED due her medical history of cancer. She denies falls, shortness of breath, abdominal pain, back pain, dysuria, abnormal bowel movements, headache and vomiting. Home Medications Home Medications Medication Instructions Recorded Confirmed Type acetaminophen [Tylenol Extra 100 mg PO Q6H PRN 04/26/18 04/26/18 History Strength] amitriptyline 100 mg PO HS 04/26/18 04/26/18 History cholecalciferol (vitamin D3) 1,000 unit PO BID 04/26/18 04/26/18 History [Vitamin D3] denosumab [Xgeva] 120 mg SUBCUT MONTHLY 04/26/18 04/26/18 History fentanyl 50 mcg TRANSDERMAL Q72H 04/26/18 04/26/18 History ferrous sulfate 325 mg PO 3XWK 04/26/18 04/26/18 History glipizide 2.5 mg PO QAM 04/26/18 04/26/18 History hydrocodone-acetaminophen 1 tab PO Q4H PRN 04/26/18 04/26/18 History letrozole 2.5 mg PO QAM 04/26/18 04/26/18 History levothyroxine 25 mcg PO QAM 04/26/18 04/26/18 History metformin 500 mg PO QAM 04/26/18 04/26/18 History polyethylene glycol 3350 [Miralax] 17 g PO DAILY PRN 04/26/18 04/26/18 History potassium 99 mg PO QAM 04/26/18 04/26/18 History sod phos di, mono-K phos mono 1 tab PO BID 04/26/18 04/26/18 History [Phosphorous] Allergies Allergy/AdvReac Type Severity Reaction Status Date / Time adhesive Allergy Mild Verified 04/26/18 12:06 aloe Allergy Mild Verified 04/26/18 12:06 aspirin Allergy Mild Verified 04/26/18 12:06 latex Allergy Unknown RASH Verified 04/26/18 12:06 Past Med/Surg History Medical History Diabetes (Chronic) Multiple sclerosis (Chronic) Breast cancer (Resolved) Green's palsy (Acute) Carcinoma, metastatic (Acute) "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 Resolution of Green's palsy status post treatment and Lyme disease Continued back pain Hospitalization for back pain and rib pain finding of widespread metastatic disease" Surgical History S/P mastectomy, bilateral (Resolved) S/P hysterectomy (Resolved) S/P cholecystectomy (Resolved) Family History Other Heart failure Hypertension Social History Current Living Situation: Alone Other Information That Helps Us Care for You: No Feels Safe at Home: Yes Safety Concerns: Feels Safe At This Time Smoking Status: Former smoker Do You Dip or Chew Tobacco: No Smoking End Date: 2002 Second Hand Exposure: No Tobacco Cessation Education Requested by Patient: No Hx Alcohol Use: No Hx Substance Use: No Beliefs That Will Affect Care: None Preferred Language: Chilean Communication Ability: Effective Circuit Rider Required: No Review of Systems See HPI for pertinent positives & negatives. and A total of 10 systems reviewed and were otherwise negative Physical Exam Vital Signs Vital Signs - 24 hr 04/26/18 11:25 04/26/18 13:23 04/26/18 14:35 Temperature 36.8 C Temperature Source Oral Sepsis Recent Fever Within 48 Hours No Sepsis New/Unexplained Change in Mental Status No Sepsis Action Taken by Nursing No Action Required Pulse Rate 129 H Pulse Rate [Finger] 110 H Pulse Rhythm [Finger] Regular Pulse Strength [Finger] Normal Respiratory Rate 17 18 Respiratory Effort / Characteristics Non-Labored Non-Labored Spontaneous Non-Labored Spontaneous Respiratory Depth Normal Normal Normal Respiratory Pattern Regular Regular Blood Pressure 129/75 Blood Pressure [Right Arm] 118/69 Blood Pressure Mean 93 Blood Pressure Mean [Right Arm] 85 Blood Pressure Position Sitting Blood Pressure Position [Right Arm] Lying Pulse Oximetry 96 95 Oxygen Delivery Method Room Air Room Air Room Air 04/26/18 15:23 04/26/18 16:58 Temperature 37.3 C Temperature Source Oral Sepsis Recent Fever Within 48 Hours Sepsis New/Unexplained Change in Mental Status Sepsis Action Taken by Nursing Pulse Rate Pulse Rate [Finger] 103 H 104 H Pulse Rhythm [Finger] Regular Pulse Strength [Finger] Normal Respiratory Rate 16 20 Respiratory Effort / Characteristics Non-Labored Spontaneous Non-Labored Respiratory Depth Normal Normal Respiratory Pattern Regular Regular Blood Pressure Blood Pressure [Right Arm] 146/85 H 122/83 Blood Pressure Mean Blood Pressure Mean [Right Arm] 105 96 Blood Pressure Position Blood Pressure Position [Right Arm] Lying Lying Pulse Oximetry 94 91 Oxygen Delivery Method Room Air Room Air GENERAL: Awake, alert, well-appearing, in no distress HENT: Normocephalic, atraumatic. EYES: Normal conjunctiva. Sclera non-icteric. PERRL. NECK: Supple. No nuchal rigidity. RESPIRATORY: Clear to auscultation other than diminished bases. No wheezes. CARDIAC: Tachycardic rate. Normal rhythm. Extremities warm and well perfused. GI: Soft, non-distended. No tenderness to palpation. No rebound or guarding. RECTAL: Deferred. MUSCULOSKELETAL: Atraumatic. Chest examination reveals no tenderness. LOWER EXTREMITIES: Calves are equal size bilaterally and non-tender. Trace edema NEURO: Normal sensorium. No sensory or motor deficits noted. No facial droop. SKIN: Warm and dry. No rash or jaundice noted. Course 1200: Past medical records reviewed. The patient was evaluated in room B8, and a complete history and physical examination were performed. 1412: I reevaluated the patient at this time and discussed possible admission. 1422: I reviewed the patient's case with Dr. Khurram CHRISTIANSON hospitalist. She will evaluate the patient for further management. Administered Medications Enoxaparin Sodium (Lovenox) 40 mg SQ Q24H ANKIT Stop: 05/26/18 18:59 Last Admin: 04/26/18 18:58 Dose: 40 mg Sodium Chloride (Nss) 500 mls @ 100 mls/hr IV .Q5H ANKIT Stop: 04/27/18 02:56 Last Admin: 04/26/18 18:52 Dose: 100 mls/hr Insulin Aspart (Novolog Flexpen) 0 units SC ACHS ANKIT Stop: 05/26/18 16:56 Last Admin: 04/26/18 18:54 Dose: 2 units Discontinued Medications Azithromycin (Zithromax) 500 mg PO NOW ONE Stop: 04/26/18 14:18 Last Admin: 04/26/18 14:23 Dose: 500 mg Ceftriaxone Sodium (Rocephin) 1,000 mg in 50 mls @ 100 mls/hr IV NOW STA Stop: 04/26/18 14:46 Last Infusion: 04/26/18 14:46 Dose: 0 mls/hr Admin: 04/26/18 14:24 Dose: 100 mls/hr Ioversol (Optiray 320 100ml) 94 ml IV ONCE PRN PRN Reason: Interaction Checking Stop: 04/30/18 13:10 Last Admin: 04/26/18 13:11 Dose: 94 ml Ondansetron HCl (Zofran) Confirm Administered Dose 4 mg .ROUTE .STK-MED ONE Stop: 04/26/18 11:48 Last Admin: 04/26/18 11:49 Dose: 4 mg Medical Decision Making Differential Diagnosis Differential includes acute coronary syndrome, myocardial infarction, CVA, TIA , anemia, infection, pneumonia, UTI, pyelonephritis, poor nutrition, dehydration , electrolyte disturbance,hypoglycemia. Medical Records Attestation: I reviewed the patient's medical records. Home Medications Current Medication List: was personally reviewed by me Laboratory Data Attestation: I reviewed the patient's lab results. Result diagrams: 04/26/18 11:43 04/26/18 11:43 Lab Results 04/26/18 04/26/18 04/26/18 Range/Units 11:43 11:43 11:43 WBC 4.30 L (4.8-10.8) K/uL RBC 4.32 (4.2-5.4) M/uL Hgb 12.1 (12.0-16.0) g/dL Hct 38.3 (37-47) % MCV 88.7 (80-100) fL MCH 28.0 (25-34) pg MCHC 31.6 L (32-36) g/dL RDW Std Deviation 51.2 H (36.4-46.3) fL RDW Coeff of Gonzalez 15.7 H (11.5-14.5) % Plt Count 229 (130-400) K/uL MPV 10.1 (7.4-10.4) fL Immature Gran % (Auto) 0.2 % Neut % (Auto) 77.0 % Lymph % (Auto) 14.2 % [place] % (Auto) 4.4 % Eos % (Auto) 4.0 % Baso % (Auto) 0.2 % Immature Gran # (Auto) 0.01 (0.00-0.02) K/uL Neut # (Auto) 3.31 (1.4-6.5) K/uL Lymph # (Auto) 0.61 L (1.2-3.4) K/uL Gos[place] # (Auto) 0.19 (0.11-0.59) K/uL Eos # (Auto) 0.17 (0-0.5) K/uL Baso # (Auto) 0.01 (0-0.2) K/uL PT 10.2 (9.0-12.0) Seconds INR 1.0 (0.9-1.1) Sodium 136 (136-145) mmol/L Potassium 3.7 (3.5-5.1) mmol/L Chloride 100 (98-107) mmol/L Carbon Dioxide 29 (21-32) mmol/L Anion Gap 7.0 (3-11) BUN 24 H (7-18) mg/dl Creatinine 1.38 H (0.6-1.2) mg/dl Est Cr Clr Drug Dosing 42.3 ml/min Est GFR ( Amer) 43.8 Est GFR (Non-Af Amer) 37.8 BUN/Creatinine Ratio 17.1 (10-20) Glucose 159 H (70-99) mg/dl POC Glucose (70-99) Calcium 9.0 (8.5-10.1) mg/dl Phosphorus (2.5-4.9) mg/dl Magnesium 2.1 (1.8-2.4) mg/dl Total Bilirubin 0.3 (0.2-1) mg/dl AST 23 (15-37) U/L ALT 33 (12-78) U/L Alkaline Phosphatase 71 (45-117) U/L Troponin I < 0.015 (0-0.045) ng/ml Total Protein 8.5 H (6.4-8.2) gm/dl Albumin 3.4 (3.4-5.0) gm/dl Globulin 5.1 H (2.5-4.0) gm/dl Albumin/Globulin Ratio 0.7 L (0.9-2) Lipase 171 (73-393) U/L TSH 0.295 L (0.300-4.500) uIu/ml Free T4 1.35 (0.8-1.6) ng/dl Urine Color Urine Appearance (Clear) Urine pH (4.5-7.5) Ur Specific [place] (1.000-1.030) Urine Protein (Negative) Urine Glucose (UA) (Negative) Urine Ketones (Negative) Urine Blood (Negative) Urine Nitrite (Negative) Urine Bilirubin (Negative) Urine Urobilinogen (Negative) Ur Leukocyte Esterase (Negative) Influenza Type A (PCR) (Neg) Influenza Type B (PCR) (Neg) 04/26/18 04/26/18 04/26/18 Range/Units 12:38 17:19 17:26 WBC (4.8-10.8) K/uL RBC (4.2-5.4) M/uL Hgb (12.0-16.0) g/dL Hct (37-47) % MCV (80-100) fL MCH (25-34) pg MCHC (32-36) g/dL RDW Std Deviation (36.4-46.3) fL RDW Coeff of Gonzalez (11.5-14.5) % Plt Count (130-400) K/uL MPV (7.4-10.4) fL Immature Gran % (Auto) % Neut % (Auto) % Lymph % (Auto) % [place] % (Auto) % Eos % (Auto) % Baso % (Auto) % Immature Gran # (Auto) (0.00-0.02) K/uL Neut # (Auto) (1.4-6.5) K/uL Lymph # (Auto) (1.2-3.4) K/uL [place] # (Auto) (0.11-0.59) K/uL Eos # (Auto) (0-0.5) K/uL Baso # (Auto) (0-0.2) K/uL PT (9.0-12.0) Seconds INR (0.9-1.1) Sodium (136-145) mmol/L Potassium (3.5-5.1) mmol/L Chloride (98-107) mmol/L Carbon Dioxide (21-32) mmol/L Anion Gap (3-11) BUN (7-18) mg/dl Creatinine (0.6-1.2) mg/dl Est Cr Clr Drug Dosing ml/min Est GFR ( Amer) Est GFR (Non-Af Amer) BUN/Creatinine Ratio (10-20) Glucose (70-99) mg/dl POC Glucose 107 H (70-99) Calcium (8.5-10.1) mg/dl Phosphorus 3.6 (2.5-4.9) mg/dl Magnesium (1.8-2.4) mg/dl Total Bilirubin (0.2-1) mg/dl AST (15-37) U/L ALT (12-78) U/L Alkaline Phosphatase (45-117) U/L Troponin I (0-0.045) ng/ml Total Protein (6.4-8.2) gm/dl Albumin (3.4-5.0) gm/dl Globulin (2.5-4.0) gm/dl Albumin/Globulin Ratio (0.9-2) Lipase (73-393) U/L TSH (0.300-4.500) uIu/ml Free T4 (0.8-1.6) ng/dl Urine Color Urine Appearance (Clear) Urine pH (4.5-7.5) Ur Specific [place] (1.000-1.030) Urine Protein (Negative) Urine Glucose (UA) (Negative) Urine Ketones (Negative) Urine Blood (Negative) Urine Nitrite (Negative) Urine Bilirubin (Negative) Urine Urobilinogen (Negative) Ur Leukocyte Esterase (Negative) Influenza Type A (PCR) Neg for Influ A (Neg) Influenza Type B (PCR) Neg for Influ B (Neg) 04/26/18 Range/Units 18:00 WBC (4.8-10.8) K/uL RBC (4.2-5.4) M/uL Hgb (12.0-16.0) g/dL Hct (37-47) % MCV (80-100) fL MCH (25-34) pg MCHC (32-36) g/dL RDW Std Deviation (36.4-46.3) fL RDW Coeff of Gonzalez (11.5-14.5) % Plt Count (130-400) K/uL MPV (7.4-10.4) fL Immature Gran % (Auto) % Neut % (Auto) % Lymph % (Auto) % [place] % (Auto) % Eos % (Auto) % Baso % (Auto) % Immature Gran # (Auto) (0.00-0.02) K/uL Neut # (Auto) (1.4-6.5) K/uL Lymph # (Auto) (1.2-3.4) K/uL [place] # (Auto) (0.11-0.59) K/uL Eos # (Auto) (0-0.5) K/uL Baso # (Auto) (0-0.2) K/uL PT (9.0-12.0) Seconds INR (0.9-1.1) Sodium (136-145) mmol/L Potassium (3.5-5.1) mmol/L Chloride (98-107) mmol/L Carbon Dioxide (21-32) mmol/L Anion Gap (3-11) BUN (7-18) mg/dl Creatinine (0.6-1.2) mg/dl Est Cr Clr Drug Dosing ml/min Est GFR ( Amer) Est GFR (Non-Af Amer) BUN/Creatinine Ratio (10-20) Glucose (70-99) mg/dl POC Glucose (70-99) Calcium (8.5-10.1) mg/dl Phosphorus (2.5-4.9) mg/dl Magnesium (1.8-2.4) mg/dl Total Bilirubin (0.2-1) mg/dl AST (15-37) U/L ALT (12-78) U/L Alkaline Phosphatase (45-117) U/L Troponin I (0-0.045) ng/ml Total Protein (6.4-8.2) gm/dl Albumin (3.4-5.0) gm/dl Globulin (2.5-4.0) gm/dl Albumin/Globulin Ratio (0.9-2) Lipase (73-393) U/L TSH (0.300-4.500) uIu/ml Free T4 (0.8-1.6) ng/dl Urine Color Yellow Urine Appearance Clear (Clear) Urine pH 7.0 (4.5-7.5) Ur Specific [place] > 1.045 H (1.000-1.030) Urine Protein Negative (Negative) Urine Glucose (UA) Negative (Negative) Urine Ketones Negative (Negative) Urine Blood Negative (Negative) Urine Nitrite Negative (Negative) Urine Bilirubin Negative (Negative) Urine Urobilinogen Negative (Negative) Ur Leukocyte Esterase Negative (Negative) Influenza Type A (PCR) (Neg) Influenza Type B (PCR) (Neg) Imaging Data Radiologist's Impression: Radiology results as stated below per my review and the radiologist's interpretation: CT head/brain wo con CLINICAL HISTORY: 72 years-old Female with weakness. Acute weakness . History of breast cancer. TECHNIQUE: Multiple axial CT images of the head were obtained without contrast. A dose lowering technique was utilized adhering to the principles of ALARA. COMPARISON: PET CT 03/01/2018, head CT 12/14/2016. FINDINGS: No acute intracranial hemorrhage, midline shift, intracranial mass, hydrocephalus, territorial ischemia or abnormal extra-axial collection. 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 Mild atrophy. Ill -defined hypodensities about the white matter are suggestive of chronic microvascular ischemic changes. The calvarium is intact. The paranasal sinuses, mastoid air cells, and middle ear cavities are clear. IMPRESSION: No acute intracranial abnormality. The above report was generated using voice recognition software. It may contain grammatical, syntax or spelling errors. Electronically signed by: Jus Burks M.D. 04/26/2018 1:[address] ANGIOGRAM OF THE CHEST; CT SCAN OF THE ABDOMEN AND PELVIS WITH IV CONTRAST CLINICAL HISTORY: Dyspnea. Tachycardia. Nausea. Weakness. History of metastatic breast cancer. COMPARISON STUDY: Chest CT scans dated 01/21/2017 and 06/20/2013. Abdominal CT dated 01/21/2017. PET/CT dated 03/01/2018. TECHNIQUE: Following the IV administration of 94 of Optiray 320, CT angiogram of the chest is performed from the upper abdomen to the thoracic inlet utilizing the pulmonary embolus protocol. Images are reviewed in the axial, sagittal, coronal planes. 3-D MIPS images are created and assessed. Subsequently , CT scan of the abdomen and pelvis was performed from the lung bases to the proximal femora. Images are reviewed in the axial, sagittal, and coronal planes. IV contrast was administered without complication. A dose lowering technique was utilized adhering to the principles of ALARA. The examination is degraded by streak artifact from the arms which could not elevated above the chest or abdomen as well as by motion artifact. CT DOSE: 2200.80 mGy.cm FINDINGS: CHEST: Thyroid: Imaged portions of the thyroid gland are normal in size and attenuation. Thoracic aorta: There is mild atherosclerotic calcification of the thoracic aorta, which is normal in caliber and demonstrates standard 3-vessel arch anatomy. No dissection is seen. Pulmonary vasculature: The pulmonary trunk is normal in caliber. There are no filling defects identified in the main, lobar, or proximal segmental pulmonary arteries to indicate pulmonary embolus. Evaluation of the peripheral branches is degraded by streak and motion artifact. Heart: The heart is mildly enlarged and without pericardial effusion. Lungs and pleural spaces: Evaluation of the lung parenchyma is degraded by motion artifact. Mild emphysematous change is noted. There are trace pleural effusions. Patchy airspace consolidation is seen at the left lung base. Scarring /atelectasis is noted at the right lung base. The trachea and central airways are clear. Mediastinum: Mildly enlarged mediastinal lymph nodes are similar to previous. A high right peritracheal node seen on image #219 measures 11 mm in short axis. A pretracheal node on image #171 measures 10 mm in short axis. Zayra: Clear. Axillae: There is no pathologically enlarged axillary lymph nodes. Bony thorax: The skeletal structures are osteopenic. Extensive multifocal mixed osteolytic/blastic metastatic disease has not significantly changed from previous. Compression deformities are seen involving T1, T2, T3, T6, and T9. Retropulsed fragments are seen at T6 and T9. There is no evidence of high-grade central canal stenosis. The T9 compression deformity is new from 01/21/2017. There are healed bilateral rib fractures. Soft tissues: The breasts are surgically absent. ABDOMEN AND PELVIS: Liver: The contrast-enhanced liver is normal in size, contour, and attenuation. There is no intrahepatic or ductal dilatation. The hepatic veins and portal veins are patent. A 2.7 cm cyst in the left lobe is unchanged. Gallbladder: Surgically absent noting clips in the gallbladder fossa. Spleen: Normal in size and attenuation. A calcification lung the posterior splenic capsule is of doubtful significance and unchanged from previous. Pancreas: Atrophic and grossly unremarkable. Adrenal glands: There is nodular thickening of both adrenal glands. Kidneys: The contrast enhanced kidneys demonstrate cortical atrophy and are without hydronephrosis. The kidneys enhance and excrete symmetrically. Scattered subcentimeter cortical hypodensities likely represent cysts but are too small for definitive characterization. Abdominal vasculature: The abdominal aorta is normal in course and caliber noting mild to moderate atherosclerotic calcification. Bowel: Colonic fecal retention is observed. No bowel obstruction is seen. The appendix is well-visualized and normal. Peritoneum: There is no intraperitoneal free air or abdominal ascites. There is a small fat-containing umbilical hernia. Lymphadenopathy: Prominent retroperitoneal lymph nodes measure up to 9 mm in short axis. There is no pelvic sidewall, mesenteric, or inguinal lymphadenopathy. Calcified nodes adjacent the pancreatic head are similar to prior studies. Pelvic viscera: The bladder is normal as visualized. The uterus is surgically absent. No adnexal lesion is seen. Skeletal structures: The skeletal structures are osteopenic. Extensive/ multifocal mixed osteolytic/blastic metastatic disease has not significantly changed from 03/01/2018 PET examination. There is a moderate compression deformity of L2. IMPRESSION: 1. Streak and motion compromised examination. 2. There is no evidence of pulmonary embolus in the main, lobar, or proximal segmental pulmonary arteries. 3. Cardiomegaly and mild emphysema. 4. Patchy airspace consolidation at the left lung base is new from previous. This likely represents pneumonia and clinical correlation will be required. Radiographic follow-up to resolution is recommended. 5. There are no acute infectious or inflammatory findings in the abdomen or pelvis. 6. Trace pleural effusions. 7. Extensive/multifocal osseous metastatic disease has not appreciably changed from the 03/01/2018 PET examination. 8. Additional findings as above. Electronically signed by: Lencho Jean M.D. 04/26/2018 1:[address] ANGIOGRAM OF THE CHEST; CT SCAN OF THE ABDOMEN AND PELVIS WITH IV CONTRAST CLINICAL HISTORY: Dyspnea. Tachycardia. Nausea. Weakness. History of metastatic breast cancer. COMPARISON STUDY: Chest CT scans dated 01/21/2017 and 06/20/2013. Abdominal CT dated 01/21/2017. PET/CT dated 03/01/2018. TECHNIQUE: Following the IV administration of 94 of Optiray 320, CT angiogram of the chest is performed from the upper abdomen to the thoracic inlet utilizing the pulmonary embolus protocol. Images are reviewed in the axial, sagittal, coronal planes. 3-D MIPS images are created and assessed. Subsequently , CT scan of the abdomen and pelvis was performed from the lung bases to the proximal femora. Images are reviewed in the axial, sagittal, and coronal planes. IV contrast was administered without complication. A dose lowering technique was utilized adhering to the principles of ALARA. The examination is degraded by streak artifact from the arms which could not elevated above the chest or abdomen as well as by motion artifact. CT DOSE: 2200.80 mGy.cm FINDINGS: CHEST: Thyroid: Imaged portions of the thyroid gland are normal in size and attenuation. Thoracic aorta: There is mild atherosclerotic calcification of the thoracic aorta, which is normal in caliber and demonstrates standard 3-vessel arch anatomy. No dissection is seen. Pulmonary vasculature: The pulmonary trunk is normal in caliber. There are no filling defects identified in the main, lobar, or proximal segmental pulmonary arteries to indicate pulmonary embolus. Evaluation of the peripheral branches is degraded by streak and motion artifact. Heart: The heart is mildly enlarged and without pericardial effusion. Lungs and pleural spaces: Evaluation of the lung parenchyma is degraded by motion artifact. Mild emphysematous change is noted. There are trace pleural effusions. Patchy airspace consolidation is seen at the left lung base. Scarring /atelectasis is noted at the right lung base. The trachea and central airways are clear. Mediastinum: Mildly enlarged mediastinal lymph nodes are similar to previous. A high right peritracheal node seen on image #219 measures 11 mm in short axis. A pretracheal node on image #171 measures 10 mm in short axis. Zayra: Clear. Axillae: There is no pathologically enlarged axillary lymph nodes. Bony thorax: The skeletal structures are osteopenic. Extensive multifocal mixed osteolytic/blastic metastatic disease has not significantly changed from previous. Compression deformities are seen involving T1, T2, T3, T6, and T9. Retropulsed fragments are seen at T6 and T9. There is no evidence of high-grade central canal stenosis. The T9 compression deformity is new from 01/21/2017. There are healed bilateral rib fractures. Soft tissues: The breasts are surgically absent. ABDOMEN AND PELVIS: Liver: The contrast-enhanced liver is normal in size, contour, and attenuation. There is no intrahepatic or ductal dilatation. The hepatic veins and portal veins are patent. A 2.7 cm cyst in the left lobe is unchanged. Gallbladder: Surgically absent noting clips in the gallbladder fossa. Spleen: Normal in size and attenuation. A calcification lung the posterior splenic capsule is of doubtful significance and unchanged from previous. Pancreas: Atrophic and grossly unremarkable. Adrenal glands: There is nodular thickening of both adrenal glands. Kidneys: The contrast enhanced kidneys demonstrate cortical atrophy and are without hydronephrosis. The kidneys enhance and excrete symmetrically. Scattered subcentimeter cortical hypodensities likely represent cysts but are too small for definitive characterization. Abdominal vasculature: The abdominal aorta is normal in course and caliber noting mild to moderate atherosclerotic calcification. Bowel: Colonic fecal retention is observed. No bowel obstruction is seen. The appendix is well-visualized and normal. Peritoneum: There is no intraperitoneal free air or abdominal ascites. There is a small fat-containing umbilical hernia. Lymphadenopathy: Prominent retroperitoneal lymph nodes measure up to 9 mm in short axis. There is no pelvic sidewall, mesenteric, or inguinal lymphadenopathy. Calcified nodes adjacent the pancreatic head are similar to prior studies. Pelvic viscera: The bladder is normal as visualized. The uterus is surgically absent. No adnexal lesion is seen. Skeletal structures: The skeletal structures are osteopenic. Extensive/ multifocal mixed osteolytic/blastic metastatic disease has not significantly changed from 03/01/2018 PET examination. There is a moderate compression deformity of L2. IMPRESSION: 1. Streak and motion compromised examination. 2. There is no evidence of pulmonary embolus in the main, lobar, or proximal segmental pulmonary arteries. 3. Cardiomegaly and mild emphysema. 4. Patchy airspace consolidation at the left lung base is new from previous. This likely represents pneumonia and clinical correlation will be required. Radiographic follow-up to resolution is recommended. 5. There are no acute infectious or inflammatory findings in the abdomen or pelvis. 6. Trace pleural effusions. 7. Extensive/multifocal osseous metastatic disease has not appreciably changed from the 03/01/2018 PET examination. 8. Additional findings as above. Electronically signed by: Lencho Jean M.D. 04/26/2018 1:36 PM XR chest 1V portable CLINICAL HISTORY: Weakness. COMPARISON STUDY: Chest radiograph January 24, 2017. FINDINGS: There is no pneumothorax or pleural effusion. There is mild bibasilar opacity. There is no evidence for pulmonary edema. Cardiomediastinal silhouette is unremarkable. IMPRESSION: Mild bibasilar opacities, left greater than right. The findings may reflect pneumonia or atelectasis. Electronically signed by: Desmond Silverio M.D. 04/26/2018 1:22 PM ECG Data Attestation: I personally reviewed and interpreted this ECG as follows: Indication: weakness Rate (beats per minute): 114 Rhythm: sinus tachycardia Findings: + other (Normal axis); no PVC, no ST depression and no ST elevation Blood Pressure Blood Pressure Findings: Normal blood pressure Blood Pressure Disposition: further management by hospitalist [facility] Narrative 72-year-old female with a history of diabetes, MS, tachycardia, and metastatic breast disease presenting today complaining of weakness over the past approximately 4 days along with some intermittent dizziness. Denies headache. Nausea at some point but not this morning and denies any abdominal pain. No abdominal discomfort. Tachycardic into the 110s and 120s here. Not currently on chemotherapy agents. No recent medication changes. No significant anemia noted. No leukocytosis. Does appear to have a slightly elevated BUN consistent with perhaps mild dehydration but no significant acute kidney injury. Electrolites otherwise unremarkable. No lipase elevation or signs of fluids a swab was sent as she did complain of some nasal drainage this morning. Free T4 is within normal limits. CT of the head was completed along with a CTA of the chest and CT of the abdomen pelvis. No acute intracranial abnormality is noted. No acute PE is noted on the chest CT; there is patchy airspace consolidation in the left base likely pneumonia. No significant change in her metastatic disease from prior PET scan. Metastatic disease noted. No acute intra-abdominal pathology is noted. Given some IV fluid hydration. 65 score is 2 and discussed with patient options. Concerned with her going home with her medical comorbidities and immunologic agent use. Given ceftriaxone azithromycin pill. Will admit. Discussed with the hospitalist. Impression & Plan Pneumonia Discharge Plan Visit Data *Final* Discharge Date/Time: 04/26/18 16:37 Chief Complaint: Weakness Stated Complaint: DIZZINESS,WEAKNESS ED Provider: Curtis Blair Discharge Problem: Pneumonia Patient Disposition: Admitted As Inpatient Discharge Instructions Interventions: ED Discharge Assessment Last Done: 04/26/18 16:37 The scribe's documentation has been prepared under my direction and personally reviewed by me in its entirety. I confirm that the note above accurately reflects all work, treatment, procedures, and medical decision making performed by me.
[2018-04-26] MEDS: INSULIN GLARGINE SOLOSTAR 100 UNITS/ML 3 ML PEN SC SCH ×2 (21:19→22:23)
[2018-04-26] MEDS: CHOLECALCIFEROL 1,000 UNITS TAB PO SCH (21:19)
[2018-04-26] MEDS: POT PHOSPHATE MONOBASIC W/ SOD TAB PO SCH (21:19)
[2018-04-26] MEDS: AMITRIPTYLINE HCL 100 MG TAB PO SCH (21:19)
[2018-04-27] MEDS: guaiFENesin SUGAR FREE 100 MG/5 ML UDC PO PRN ×2 (02:59→23:52)
[2018-04-27] MEDS: LEVOTHYROXINE SODIUM 25 MCG TABLET PO SCH (06:42)
[2018-04-27 06:49] LABS: Basophils # (auto) 0.01 K/uL (0-0.2); Basophils % (auto) 0.3 %; Eosinophils # (auto) 0.18 K/uL (0-0.5); Eosinophils % (auto) 4.5 %; Hematocrit (blood only) 34.1 % (37-47); Hemoglobin 10.7 g/dL (12.0-16.0); Immature Granulocytes # (auto) 0.01 K/uL (0.00-0.02); Immature Granulocytes % (auto) 0.3 %; Lymphocytes # (auto) 0.71 K/uL (1.2-3.4); Lymphocytes % (auto) 17.9 %; Mean Corpuscular Hgb Conc 31.4 g/dL (32-36); Mean Corpuscular Volume 88.8 fL (80-100); Mean Platelet Volume 9.5 fL (7.4-10.4); Monocytes # (auto) 0.26 K/uL (0.11-0.59); Monocytes % (auto) 6.5 %; Neutrophils % (auto) 70.5 %; Platelet Count 199 K/uL (130-400); RDW Coefficient of Variation 15.9 % (11.5-14.5); RDW Standard Deviation 51.5 fL (36.4-46.3); Red Blood Count 3.84 M/uL (4.2-5.4); White Blood Count 3.97 K/uL (4.8-10.8)
[2018-04-27] MEDS ORDERED: fentaNYL 50 MCG/HR TDSY TD SCH (07:00)
[2018-04-27 07:03] LABS: Estimated Average Glucose 126 mg/dl
[2018-04-27 07:18] LABS: BUN Creatinine Ratio 16.3 (10-20); Creatinine Clr Calc Pharmacy 56.1 ml/min; Est GFR (African American) 61.7; Est GFR (Non-African American) 53.3
[2018-04-27] MEDS: cefTRIAXone SODIUM 1,000 MG in DEXTROSE 5% 50 ML IV SCH (08:32)
[2018-04-27] MEDS: CHECK FENTANYL PATCH PLACEMENT SCH ×3 (08:32→23:51)
[2018-04-27] MEDS: FERROUS SULFATE 325 MG TAB PO SCH (08:33)
[2018-04-27] MEDS: POT PHOSPHATE MONOBASIC W/ SOD TAB PO SCH ×2 (08:33→20:48)
[2018-04-27] MEDS: CHOLECALCIFEROL 1,000 UNITS TAB PO SCH ×2 (08:33→20:48)
[2018-04-27] MEDS: INSULIN GLARGINE SOLOSTAR 100 UNITS/ML 3 ML PEN SC SCH ×2 (08:37→20:48)
[2018-04-27] MEDS: INSULIN ASPART 100 UNITS/ML 3 ML PEN SC SCH ×4 (08:39→20:48)
[2018-04-27] MEDS: LETROZOLE 2.5 MG TAB PO SCH (08:55)
[2018-04-27] MEDS ORDERED: NON-FORMULARY MEDICATION (Potassium [Potassium] 99 MG) PO SCH (09:00)
[2018-04-27] MEDS: AZITHROMYCIN 250 MG in DEXTROSE 5% 250 ML IV SCH (09:19)
[2018-04-27] MEDS ORDERED: LACTATED RINGER'S 1,000 ML IV SCH (16:15)
[2018-04-27] MEDS: ENOXAPARIN INJ 40 MG/0.4 ML SYR SQ SCH (19:27)
[2018-04-27] MEDS: AMITRIPTYLINE HCL 100 MG TAB PO SCH (20:48)
--- NOTE | 2018-04-27 21:34 | Hospitalist Progress Note ---
Date of Service April 27, 2018 Assessment & Plan (1) Pneumonia: On admission, patient presently afebrile, slightly tachycardic, blood pressure stable, no respiratory distress, adequate oxygenation on room air. Curb 65 score = 2 (BUN of 24, age 72) associated with moderate risk, 6.8% 30- day mortality. Will continue Ceftriaxone 1 g IV and Azithromycin 250 mg IV daily for treatment of CAP (04/27/18) * Robitussin as needed * Albuterol as needed * Incentive spirometry every 2 hours while awake Patient remains tachycardic, will given another liter of fluids. LR at 80 ml/hr (2) MIKHAIL (acute kidney injury): Creat improved to baseline on 04/27/18. (3) Diabetes: Patient reports adequate blood sugar control on metformin and glipizide. Last hemoglobin A1c 5.5 in March 2017 * Will hold metformin and glipizide for now * Lantus 7 units twice daily with insulin sliding scale based on weight * Check A1c with morning labs (4) Breast cancer: Patient with metastatic breast cancer. Follows with Dr. Tai from [facility]. * Continue Xgeva * Continue letrozole * Continue pain management with fentanyl 50 mcg patch. To be changed tomorrow * Continue pain management with hydrocodone as needed * (5) Multiple sclerosis: Patient reports this being well controlled. * Continue amitriptyline for symptomatic management * (6) Hypothyroidism: Slightly low TSH 0.295, normal T4 1.35 * Continue Synthroid * Ppx - Lovenox for DVT prophylaxis Code - DNR per discussion with patient Subjective 72 yo female reports feeling better today. She is still not at her baseline. Patient reports that her breathing is better than when she came in. She states that she has been tolerating room air. Patient denies any fever, chills, nausea, vomiting. Constitutional: no fever and no sweats Eyes: no blind spots Ear, Nose, Mouth, Throat: no ear pain and no ear trauma Respiratory: + cough and + dyspnea Cardiovascular: no chest pain Gastrointestinal: no abdominal pain Genitourinary (Female): no dysuria Integumentary: no acne Neurologic: no dizziness Psychiatric: no behavioral changes Endocrine: no fatigue Hematologic / Lymphatic: no easy bleeding Physical Exam 2 Vital Signs (Past 24 Hours): Last Vital Signs Temp 37.2 C 04/27/18 15:00 Pulse 101 H 04/27/18 15:00 Resp 18 04/27/18 15:00 BP 139/83 04/27/18 15:00 Pulse Ox 90 04/27/18 15:00 Physical Exam: General: patient resting comfortably, NAD, non-toxic in appearance, AA&O x 4 Skin: warm, dry, intact, no rashes or lesions HEENT: NC/AT, PERRL, EOMI, anicteric sclera, conjunctiva without injection, external ear normal to inspection and nontender, nares patent, slightly dry mucus membranes, dentition intact, no oropharyngeal lesions, neck supple, trachea midline, no LAD, no thyromegaly, no JVD Heart: +S1/S2, regular, tachycardic, no m/r/g, surgical absence of bilateral breasts Lungs: wheezing noted in left lung Abd: +BS, soft, NT/ND, no masses/organomegaly/ascites Ext: warm, 2+ pulses in UE/LE bilaterally, no clubbing/cyanosis or edema Neuro: nonfocal, patient AA&O x 4, speech intact, no facial droop, moving all extremities on command with equal strength 5/5 _ (1) Diabetes Chronic kidney disease stage: Diabetes mellitus complication detail: Diabetes mellitus complication status: without complication Diabetes mellitus manager intermediate insulin use: without jail use Diabetes mellitus macular edema: Diabetes mellitus type: type 2 Diabetic retinopathy severity: Laterality: Proliferative retinopathy type: Qualified Code(s): E11.9 - Type 2 diabetes mellitus without complications (2) Pneumonia Aspiration pneumonia type: Laterality: left Lung location: lower lobe of lung Pneumonia type: due to unspecified organism Qualified Code(s): J18.1 - Lobar pneumonia, unspecified organism
[2018-04-28] MEDS: LEVOTHYROXINE SODIUM 25 MCG TABLET PO SCH (04:50)
[2018-04-28] MEDS: CHOLECALCIFEROL 1,000 UNITS TAB PO SCH ×2 (08:25→20:57)
[2018-04-28] MEDS: LETROZOLE 2.5 MG TAB PO SCH (08:25)
[2018-04-28] MEDS: cefTRIAXone SODIUM 1,000 MG in DEXTROSE 5% 50 ML IV SCH (08:25)
[2018-04-28] MEDS: CHECK FENTANYL PATCH PLACEMENT SCH ×2 (08:26→16:14)
[2018-04-28] MEDS: POT PHOSPHATE MONOBASIC W/ SOD TAB PO SCH ×2 (08:26→20:57)
[2018-04-28] MEDS: INSULIN ASPART 100 UNITS/ML 3 ML PEN SC SCH ×4 (08:41→22:08)
[2018-04-28] MEDS: INSULIN GLARGINE SOLOSTAR 100 UNITS/ML 3 ML PEN SC SCH ×2 (08:41→22:07)
[2018-04-28 09:05] LABS: Basophils # (auto) 0.01 K/uL (0-0.2); Basophils % (auto) 0.3 %; Eosinophils # (auto) 0.11 K/uL (0-0.5); Hematocrit (blood only) 33.6 % (37-47); Hemoglobin 10.7 g/dL (12.0-16.0); Immature Granulocytes # (auto) 0.01 K/uL (0.00-0.02); Immature Granulocytes % (auto) 0.3 %; Lymphocytes # (auto) 0.74 K/uL (1.2-3.4); Lymphocytes % (auto) 20.3 %; Mean Corpuscular Hgb Conc 31.8 g/dL (32-36); Mean Corpuscular Volume 88.4 fL (80-100); Mean Platelet Volume 9.1 fL (7.4-10.4); Monocytes # (auto) 0.28 K/uL (0.11-0.59); Monocytes % (auto) 7.7 %; Neutrophils # (auto) 2.49 K/uL (1.4-6.5); Neutrophils % (auto) 68.4 %; Platelet Count 184 K/uL (130-400); RDW Coefficient of Variation 15.9 % (11.5-14.5); RDW Standard Deviation 51.3 fL (36.4-46.3); White Blood Count 3.64 K/uL (4.8-10.8)
[2018-04-28] MEDS: AZITHROMYCIN 250 MG in DEXTROSE 5% 250 ML IV SCH (09:13)
[2018-04-28 09:25] LABS: BUN Creatinine Ratio 11.2 (10-20); Calcium 7.9 mg/dl (8.5-10.1); Creatinine Clr Calc Pharmacy 48.6 ml/min; Est GFR (African American) 51.9; Est GFR (Non-African American) 44.8; Potassium 3.9 mmol/L (3.5-5.1)
[2018-04-28] MEDS: ONDANSETRON INJ 2 MG/ML 2 ML VIAL IV PRN (13:21)
[2018-04-28] MEDS: ENOXAPARIN INJ 40 MG/0.4 ML SYR SQ SCH (19:18)
[2018-04-28] MEDS: AMITRIPTYLINE HCL 100 MG TAB PO SCH (20:57)
--- NOTE | 2018-04-28 23:39 | Hospitalist Progress Note ---
Date of Service April 28, 2018 Assessment & Plan (1) Pneumonia: On admission, patient presently afebrile, slightly tachycardic, blood pressure stable, no respiratory distress, adequate oxygenation on room air. Curb 65 score = 2 (BUN of 24, age 72) associated with moderate risk, 6.8% 30- day mortality. Will continue Ceftriaxone 1 g IV and Azithromycin 250 mg IV daily for treatment of CAP (04/27/18) * Robitussin as needed * Albuterol as needed * Incentive spirometry every 2 hours while awake HR has improved. Patient no longer on IV fluids. Will continue on Azithromycin and ceftriaxone. Patient appears to have sepsis, given her temp, WBC, tachycardia. Will continue to monitor her improvement. Will continue IV antbiotics. (2) MIKHAIL (acute kidney injury): Creat improved to baseline on 04/27/18. On 04/28 it is 1.2 (3) Diabetes: Patient reports adequate blood sugar control on metformin and glipizide. Last hemoglobin A1c 5.5 in March 2017 * Will hold metformin and glipizide for now * Lantus 7 units twice daily with insulin sliding scale based on weight * a1c: IS 6.0 (4) Breast cancer: Patient with metastatic breast cancer. Follows with Dr. Tai from [place]. * Continue Xgeva * Continue letrozole * Continue pain management with fentanyl 50 mcg patch. To be changed tomorrow * Continue pain management with hydrocodone as needed * (5) Multiple sclerosis: Patient reports this being well controlled. * Continue amitriptyline for symptomatic management * (6) Sepsis: (7) Hypothyroidism: Slightly low TSH 0.295, normal T4 1.35 * Continue Synthroid * Ppx - Lovenox for DVT prophylaxis Code - DNR per discussion with patient Spent 25 minutes in management of patient. Subjective 72 yo female reports feeling bettter in the afternoon. In the morning however, she was not feeling well. She had fever chills. She was also having difficulty breathing. This afternoon, she is no longer having fever, or chills. She is also breathing better. Respiratory: + cough and + dyspnea Physical Exam 2 Vital Signs (Past 24 Hours): Last Vital Signs Temp 36.7 C 04/28/18 15:00 Pulse 93 H 04/28/18 15:00 Resp 19 04/28/18 15:00 BP 134/85 04/28/18 15:00 Pulse Ox 93 04/28/18 15:00 Physical Exam: General: patient resting comfortably, NAD, non-toxic in appearance, AA&O x 4 Skin: warm, dry, intact, no rashes or lesions HEENT: NC/AT, PERRL, EOMI, anicteric sclera, conjunctiva without injection, external ear normal to inspection and nontender, nares patent, slightly dry mucus membranes, dentition intact, no oropharyngeal lesions, neck supple, trachea midline, no LAD, no thyromegaly, no JVD Heart: +S1/S2, regular, tachycardic, no m/r/g, surgical absence of bilateral breasts Lungs: continues to have wheezing in her left lung. Abd: +BS, soft, NT/ND, no masses/organomegaly/ascites Ext: warm, 2+ pulses in UE/LE bilaterally, no clubbing/cyanosis or edema Neuro: nonfocal, patient AA&O x 4, speech intact, no facial droop, moving all extremities on command with equal strength 5/5 _ (1) Diabetes Chronic kidney disease stage: Diabetes mellitus complication detail: Diabetes mellitus complication status: without complication Diabetes mellitus usp insulin use: without usp use Diabetes mellitus macular edema: Diabetes mellitus type: type 2 Diabetic retinopathy severity: Laterality: Proliferative retinopathy type: Qualified Code(s): E11.9 - Type 2 diabetes mellitus without complications (2) Pneumonia Aspiration pneumonia type: Laterality: left Lung location: lower lobe of lung Pneumonia type: due to unspecified organism Qualified Code(s): J18.1 - Lobar pneumonia, unspecified organism
[2018-04-29] MEDS: CHECK FENTANYL PATCH PLACEMENT SCH ×2 (00:43→08:27)
[2018-04-29] MEDS: cefTRIAXone SODIUM 1,000 MG in DEXTROSE 5% 50 ML IV SCH (06:07)
[2018-04-29] MEDS: LEVOTHYROXINE SODIUM 25 MCG TABLET PO SCH (06:07)
[2018-04-29] MEDS: INSULIN GLARGINE SOLOSTAR 100 UNITS/ML 3 ML PEN SC SCH (08:23)
[2018-04-29] MEDS: CHOLECALCIFEROL 1,000 UNITS TAB PO SCH (08:23)
[2018-04-29] MEDS: LETROZOLE 2.5 MG TAB PO SCH (08:23)
[2018-04-29] MEDS: INSULIN ASPART 100 UNITS/ML 3 ML PEN SC SCH ×2 (08:23→12:22)
[2018-04-29] MEDS: AZITHROMYCIN 250 MG in DEXTROSE 5% 250 ML IV SCH (08:24)
[2018-04-29] MEDS: FERROUS SULFATE 325 MG TAB PO SCH (08:24)
[2018-04-29] MEDS: POT PHOSPHATE MONOBASIC W/ SOD TAB PO SCH (08:24)
[2018-04-29] MEDS: ONDANSETRON INJ 2 MG/ML 2 ML VIAL IV PRN (12:50)
--- NOTE | 2018-04-29 15:19 | XRay Report ---
XR chest 2V routine CLINICAL HISTORY: Pneumonia. COMPARISON STUDY: Chest radiograph and chest CT April 26, 2018. FINDINGS: Mild left lower lobe airspace opacity persists. There is no pneumothorax or pleural effusio n. Multiple skeletal metastases are again noted. No evidence for pulmonary edema. IMPRESSION: 1. No spleen change in mild left lower lobe opacity which favors pneumonia. 2. Redemonstration of multiple skeletal metastases, better depicted on chest CT. Electronically signed by: Desmond Silverio M.D. 04/29/2018 3:17 PM
--- NOTE | 2018-04-30 06:04 | Discharge Summary ---
Date of Service April 29, 2018 Admission HPI Per Admitting Provider Patient is a 72-year-old female presenting with dizziness and lightheadedness as well as productive cough and sweats. 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 Also with diabetes and MS. Patient reports 3 days of dizziness and lightheadedness, feeling as though she was going to pass out. Not related to positional changes. No report of the room spinning. No headache, numbness, tingling or focal weakness. She had a prolonged hot flash yesterday with diffuse sweating requiring her to change her bed sheets. Also complaining of diffuse weakness, chest congestion, cough productive for clear phlegm. Also had some mild nausea and loose stools. She denies chest pain, palpitations, syncope. Denies abdominal pain, vomiting or constipation. Denies shortness of breath or wheeze. No dysuria or flank pain. Upon arrival to the ER she was afebrile, sinus tachycardia 110 bpm, blood pressure stable, no respiratory distress, saturating 95% on room air. CT of the chest suggestive of pneumonia. Patient with no additional complaints at this time ER course: Azithromycin 500 mg, ceftriaxone 1 g, Zofran Principal Diagnosis Pneumonia with sepsis present on admission Discharge Exam General: patient resting comfortably, NAD, non-toxic in appearance, AA&O x 4 Skin: warm, dry, intact, no rashes or lesions HEENT: NC/AT, PERRL, EOMI, anicteric sclera, conjunctiva without injection, external ear normal to inspection and nontender, nares patent, slightly dry mucus membranes, dentition intact, no oropharyngeal lesions, neck supple, trachea midline, no LAD, no thyromegaly, no JVD Heart: +S1/S2, regular, tachycardic, no m/r/g, surgical absence of bilateral breasts Lungs: continues to have wheezing in her left lung. Abd: +BS, soft, NT/ND, no masses/organomegaly/ascites Ext: warm, 2+ pulses in UE/LE bilaterally, no clubbing/cyanosis or edema Neuro: nonfocal, patient AA&O x 4, speech intact, no facial droop, moving all extremities on command with equal strength 5/5 Discharge Data Allergies Allergy/AdvReac Type Severity Reaction Status Date / Time adhesive Allergy Mild Verified 04/26/18 12:06 aloe Allergy Mild Verified 04/26/18 12:06 aspirin Allergy Mild Verified 04/26/18 12:06 latex Allergy Unknown RASH Verified 04/26/18 12:06 Consultations 04/26/18 14:21 ED Decision to Admit Stat Ordered Studies 04/26/18 12:10 CT head/brain wo con Stat 04/26/18 12:42 CT abd pelvis IV con only Stat CT angio chest PE protocol Stat Hospital Course (1) Pneumonia: On admission, patient presently afebrile, slightly tachycardic, blood pressure stable, no respiratory distress, adequate oxygenation on room air. Curb 65 score = 2 (BUN of 24, age 72) associated with moderate risk, 6.8% 30- day mortality. Will continue Ceftriaxone 1 g IV and Azithromycin 250 mg IV daily for treatment of CAP (04/27/18) * Robitussin as needed * Albuterol as needed * Incentive spirometry every 2 hours while awake HR has improved. Patient no longer on IV fluids. Will continue on Azithromycin and ceftriaxone. Patient appears to have sepsis, given her temp, WBC, tachycardia. Will continue to monitor her improvement. Patient improved on day of discharge Patient is discharged on azithromycin and cefuroxime. (2) MIKHAIL (acute kidney injury): Creat improved to baseline on 04/27/18. On 04/28 it is 1.2 (3) Diabetes: Patient reports adequate blood sugar control on metformin and glipizide. Last hemoglobin A1c 5.5 in March 2017 * Will hold metformin and glipizide for now * Lantus 7 units twice daily with insulin sliding scale based on weight * a1c: IS 6.0 (4) Breast cancer: Patient with metastatic breast cancer. Follows with Dr. Tai from [facility]. * Continue Xgeva * Continue letrozole * Continue pain management with fentanyl 50 mcg patch. To be changed tomorrow * Continue pain management with hydrocodone as needed * (5) Multiple sclerosis: Patient reports this being well controlled. * Continue amitriptyline for symptomatic management * (6) Sepsis: (7) Hypothyroidism: Slightly low TSH 0.295, normal T4 1.35 * Continue Synthroid * Ppx - Lovenox for DVT prophylaxis Code - DNR per discussion with patient . Total Time Total Time Spent Total Time Spent (In Minutes): 32 nminutes Total Time Includes: Examination of the Patient, Discharge Planning and Medication Reconciliation Discharge Plan Discharge Items Patient Disposition: Home - Self-Care Reason For Visit: PNEUMONIA Discharge Diagnosis: Community acquired pneumonia Discharge Goals: Decrease discomfort and Improve function Activity: Resume your previous activity Non-emergency contact: Primary Care Provider Call non-emergency contact if: you have any medication questions Follow-up/Referrals: Wendy Chaves CRNP [Primary Care Provider] - 05/11/18 1:00 pm (Please, follow up with Wendy SEVERINO on ThursdayApril 10 at 1:00 pm. *If you need to change this appointment, call the office at [phone].) Diet: Carb Consistent or DM2 Addtl Provider Instructions: Followup with PCP in 1-2 weeks Prescriptions: New prednisone 10 mg tablet 10 mg PO UD Qty: 17 RF: 0 Continue metformin 500 mg tablet 500 mg PO QAM RF: 0 fentanyl 50 mcg/hr patch 72 hour 50 mcg Transdermal Q72H RF: 0 polyethylene glycol 3350 [Miralax] 17 gram Powder In Packet 17 g PO DAILY PRN (Reason: Constipation) RF: 0 hydrocodone-acetaminophen 5-325 mg tablet 1 tab PO Q4H PRN (Reason: Pain) RF: 0 acetaminophen [Tylenol Extra Strength] 500 mg Tablet 100 mg PO Q6H PRN (Reason: Pain) RF: 0 levothyroxine 25 mcg tablet 25 mcg PO QAM RF: 0 potassium 99 mg Tablet 99 mg PO QAM RF: 0 glipizide 2.5 mg tablet extended release 24hr 2.5 mg PO QAM RF: 0 ferrous sulfate 325 mg (65 mg iron) Tablet 325 mg PO 3XWK RF: 0 sod phos di, mono-K phos mono [Phosphorous] 250 mg Tablet 1 tab PO BID RF: 0 letrozole 2.5 mg tablet 2.5 mg PO QAM RF: 0 amitriptyline 100 mg tablet 100 mg PO HS RF: 0 cholecalciferol (vitamin D3) [Vitamin D3] 1,000 unit Capsule 1,000 unit PO BID RF: 0 denosumab 120 mg/1.7 mL (70 mg/mL) solution 120 mg subcut MONTHLY RF: 0 Visit Report Forms: My [facility] Portal Stand-Alone Forms: [facility] Discharge Orders: Discharge Order (Routine); Ordered 04/29/18 Ordered By: Sung Mejia Admission Data Admit Date/Time: 04/26/18 15:15 Attending Provider: Sung Mejia Admit Provider: Anu Paulson Primary Care Provider: Wendy Chaves Service: Medical Other Interventions: Discharge Summary Assessment (RN) Last Done: 04/29/18 15:41 DC Date/Time DO NOT enter until pt leaves facility: 04/29/18 16:00
--- NOTE | 2018-04-30 11:33 | Coding Query ---
PRESENT ON ADMISSION QUERY To promote full compliance with coding requirements relating to pateint care, physician participation is requested in all cases of forensic anthropologist uncertainty. Please assist us with the question(s) below: Please place an X within the parenthesis (x). The following diagnosis(es) listed in this patient's medical record require physician assistance to determine if they were present on admission (POA) or not. Please advise for each diagnosis whether it was present on admission, not present on admission, or if it was clinically undetermined. 1. SEPSIS ( x) Present On Admission ( ) Not Present On Admission ( ) Clinically Undetermined Thank you Jasmine Lemon *Definition of the present on admission (POA)-Present on admission is defined as present at the time the order for inpatient admission occurs. Conditions that develop during an outpatient encounter prior to a written order for inpatient admission (including emergency department, observation, or outpatient surgery) are considered present on admission. MARTID
== END 2018-04-29 16:00 | disposition home or self-care (01) | DRG 871 ==
LOC: ED 11:22 → 2N 15:15 → SUATTDRO 15:15 → 2N 16:37

== ENCOUNTER 2021-04-03 16:19 | Observation (INO) ==
[2021-04-03 16:47] LABS: Basophils # (auto) 0.02 K/uL (0-0.2); Basophils % (auto) 0.3 %; Eosinophils # (auto) 0.16 K/uL (0-0.5); Eosinophils % (auto) 2.6 %; Hemoglobin 11.3 g/dL (12.0-16.0); Immature Granulocytes # (auto) 0.02 K/uL (0.00-0.02); Immature Granulocytes % (auto) 0.3 %; Lymphocytes # (auto) 1.61 K/uL (1.2-3.4); Lymphocytes % (auto) 26.3 %; Mean Corpuscular Hemoglobin 33.6 pg (25-34); Mean Corpuscular Hgb Conc 31.4 g/dL (32-36); Mean Corpuscular Volume 107.1 fL (80-100); Mean Platelet Volume 9.6 fL (7.4-10.4); Monocytes # (auto) 0.36 K/uL (0.11-0.59); Monocytes % (auto) 5.9 %; Neutrophils # (auto) 3.96 K/uL (1.4-6.5); Neutrophils % (auto) 64.6 %; Platelet Count 260 K/uL (130-400); RDW Coefficient of Variation 16.2 % (11.5-14.5); RDW Standard Deviation 63.4 fL (36.4-46.3); Red Blood Count 3.36 M/uL (4.2-5.4); White Blood Count 6.13 K/uL (4.8-10.8)
[2021-04-03] MEDS ORDERED: SODIUM CHLORIDE 0.9% 1000ML 1,000 ML IV ONE (16:53)
[2021-04-03 17:12] LABS: Alanine Aminotransferase 42 (12-78); Albumin Globulin Ratio 0.7 (0.9-2); Albumin Level 3.4 gm/dl (3.4-5.0); Alkaline Phosphatase 130 U/L (45-117); Aspartate Aminotransferase 49 U/L (15-37); BUN Creatinine Ratio 11.3 (10-20); Bilirubin,Total 0.3 mg/dl (0.2-1); Blood Urea Nitrogen 25 mg/dl (7-18); Calcium 13.1 mg/dl (8.5-10.1); Carbon Dioxide 31 mmol/L (21-32); Chloride 103 mmol/L (98-107); Est GFR (African American) 23.9 ml/min; Est GFR (Non-African American) 20.6 ml/min; Globulin 4.7 gm/dl (2.5-4.0); Glucose 110 mg/dl (70-99); Potassium 3.7 mmol/L (3.5-5.1); Sodium 139 mmol/L (136-145); Total Protein 8.1 gm/dl (6.4-8.2)
--- NOTE | 2021-04-03 17:34 | History & Physical Report ---
Date of Service April 03, 2021 Assessment & Plan (1) Hypercalcemia: Plan: Suspect secondary to stage IV breast cancer, known apread to her bone. Will send out complete workup with PTH, phosphorus, PTHrP, Vit D 25/1-25, SPEP, UPEP, free light chain ratio NSS 1L given in ER, will continue with IV fluids rehydration Start calcitonin 4 units/kg, repeat Ca with AM labs to see if needs repeating Start pamidronate 90mg IV Stop vitamin D supplementation Will defer Lasix as hypovolemic on admission (2) MIKHAIL (acute kidney injury): Plan: Suspect secondary to hypercalcemia. IV fluids as above. Repeat BMP in AM UA pending (3) Pernicious anemia: Plan: B12 WNL Will add folate to AM labs (4) Type II diabetes mellitus: Plan: HbA1C 5.9 in August suggests overtreatment. HbA1C with AM labs. Stop glipizide Novolog correction factor only (5) Macrocytic anemia: Plan: Folate with AM labs as above (6) Metastatic breast cancer: Plan: Metastatic to bone and liver Planning to restart palliative chemotherapy for this per patient. Patient reports Xgeva on hold but I am unclear on the details of this - submental numbness noted on oncology notes. (7) Multiple sclerosis: Plan: Noted history of this. No current treatment listed. Consider as alternative diagnosis of symptoms if not improving with hypercalcemia treatment. (8) Peripheral neuropathy: Plan: Continue amitriptyline HS (9) Hypothyroidism: Plan: TSH WNL Continue levothyroxine 25 mcg PO daily Plan: VTE Prophylaxis - heparin SQ 5000 units BID Diet - regular Disposition - admit to PCU Admission and Anticipated Discharge Date Admission Date: April 03, 2021 History of Present Illness Chief Complaint: Abnormal lab tests Primary Care Provider: MAYCOL Stuart Torrie Ponce is a 75 year old female with metastatic breast cancer who presents to the ER on the advice of her PCP due to abnormal labs tests with a creatinine 2.2 (baseline 1.4) and calcium 13.1. She reports significant worsening symptoms of confusion, lethargy, muscle weakness, constipation, loss of appetite over the last week. She denies any polyuria or polydipsia, anxiety or depression. No history of kidney stones. She has chronic lower back pain from skeletal metastatic disease from breast cancer but also reports this has been worse the last week and recently had to increase her Fentanyl patch. She was recently treated for a UTI with Bactrim on 03/20 for 7 days with symptoms of a strong odor urine and low abdominal pain. She reports her symptoms improved after antibiotics for this. She was referred to medicine for admission and ongoing management of hypercalcemia and acute kidney injury. She was treated with NSS 1 L bolus. Allergies Allergy/AdvReac Type Severity Reaction Status Date / Time adhesive Allergy Mild Unknown Verified 03/20/21 15:03 aspirin Allergy Mild Unknown Verified 03/20/21 15:03 aloe Allergy Unknown Unknown Verified 03/20/21 15:03 cephalexin Allergy Unknown Unknown Verified 03/20/21 15:03 latex Allergy Unknown RASH Verified 03/20/21 15:03 Home Medications Medication Instructions Recorded Confirmed Type cholecalciferol (vitamin D3) 25 1,000 unit PO BID 04/26/18 04/03/21 History mcg (1,000 unit) capsule (Vitamin D3) polyethylene glycol 3350 17 gram 17 g PO DAILY PRN 04/26/18 04/03/21 History oral powder packet (Miralax) blood sugar diagnostic (NGITouch #100 ea 11/17/18 03/06/21 Rx Ultra Blue Test Strip) blood-glucose meter (NGITouch #1 ea 11/17/18 03/06/21 Rx Ultra2 Meter) lancets 33 gauge (OneTouch Delica #100 ea 11/18/18 03/06/21 Rx Lancets) ferrous sulfate 325 mg (65 mg 325 mg PO 3XWK #100 tab 01/10/19 04/03/21 Rx iron) tablet denosumab 120 mg/1.7 mL (70 mg/mL) 120 mg SQ .COMPLEX 02/28/20 04/03/21 History subcutaneous solution (Xgeva) amitriptyline 100 mg tablet 100 mg PO HS #30 tab 11/12/20 04/03/21 Rx glipizide 2.5 mg tablet, extended 2.5 mg PO QAM #90 tab 11/12/20 04/03/21 Rx release 24 hr lorazepam 1 mg tablet 1 mg PO TID PRN #60 tab 12/05/20 04/03/21 Rx levothyroxine 25 mcg tablet 25 mcg PO DAILY #90 tab 12/25/20 04/03/21 Rx fentanyl 62.5 mcg/hour transdermal 50 mcg TRANSDERMAL Q72H #5 ea 03/06/21 04/03/21 Rx patch hydrocodone 5 mg-acetaminophen 325 See Rx Instructions PO Q4H PRN #60 03/20/21 04/03/21 Rx mg tablet tab clobetasol 0.05 % topical ointment 1 applic TOPICAL BID 04/03/21 04/03/21 History omeprazole 20 mg capsule,delayed 20 mg PO DAILY 04/03/21 04/03/21 History release potassium 99 mg tablet 99 mg PO DAILY 04/03/21 04/03/21 History Past Med/Surg History Medical History (Updated 04/04/21 @ 07:13 by Nadeem Garcia MD) MIKHAIL (acute kidney injury) Green's palsy Cloudy urine Community acquired pneumonia Hypoxia Lyme disease Multiple sclerosis Pneumonia Sepsis Surgical History S/P cholecystectomy S/P hysterectomy S/P mastectomy, bilateral Family History Mother Diabetes Father Cardiac disorder Hypertension Daughter Kidney stone Aunt Breast cancer Other Heart failure Denies family history of Ovarian cancer Prostate cancer Coronary heart disease Colorectal cancer Social History (Updated 03/20/21 @ 15:25 by Mariangel Beck LPN) Smoking Status: Former smoker Second Hand Exposure: No; Hx Alcohol Use: No Hx Substance Use: No Preferred Language: Kiswahili Communication Ability: Effective Visual Impairment: No Limitations Hearing Ability: Normal Customer Consulting Manager Required: No Beliefs That Will Affect Care: None marital status: / Current Living Situation: Family current occupational status: retired Feels Safe at Home: Yes Safety Concerns: Feels Safe At This Time Childhood Exposure to Second-Hand Smoke: Yes caffeine: No during the past year weight has: increased > 10 lbs Dental Care, Regularly: No Physical Activity Frequency: Daily Seatbelt Use: always Sunscreen Use: No Assistive Devices: Cane, Denture - Upper, Denture - Lower and Glasses Review of Systems Review of Systems: All systems reviewed & are unremarkable except as noted in HPI & below Physical Exam Constitutional: WD/WN, vitals as above no acute distress Eyes: + anicteric sclerae; normal pupil size ENMT: external ear and nose normal, oropharynx normal Mouth: oral mucous membranes not dry Neck: trachea midline, no thyromegaly Respiratory: normal respiratory effort, lungs clear to auscultation Cardiovascular: RRR, no murmur, no edema Gastrointestinal (Abdomen): normal bowel sounds, soft, nontender, no hepatosplenomegaly Musculoskeletal: no cyanosis or clubbing, extremities motor strength 5/5 Skin: no rashes, warm and dry Neurologic: moves all extremities and awake; not confused Psychiatric: A+Ox3, euthymic affect Results & Data Results & Data ([facility]) Vital Signs (Past 12 Hours) Vital Signs Temp Resp BP Pulse Ox 04/03/21 16:23 36.4 C L 20 134/76 96 Laboratory Results Abnormal lab results 04/03/21 04/03/21 Range/Units 16:35 16:35 RBC 3.36 L (4.2-5.4) M/uL Hgb 11.3 L (12.0-16.0) g/dL Hct 36.0 L (37-47) % MCV 107.1 H (80-100) fL MCHC 31.4 L (32-36) g/dL RDW Std Deviation 63.4 H (36.4-46.3) fL RDW Coeff of Gonzalez 16.2 H (11.5-14.5) % BUN 25 H (7-18) mg/dl Creatinine 2.24 H (0.6-1.2) mg/dl Glucose 110 H (70-99) mg/dl Calcium 13.1 H* (8.5-10.1) mg/dl AST 49 H (15-37) U/L Alkaline Phosphatase 130 H (45-117) U/L Globulin 4.7 H (2.5-4.0) gm/dl Albumin/Globulin Ratio 0.7 L (0.9-2) Diagnostic Findings XR chest 1V portable CLINICAL HISTORY: shortness of breath TECHNIQUE: Single frontal radiograph of the chest was obtained. Comparison: Comparison is made to chest 2 views 06/21/2018 FINDINGS: No lines and tubes are seen. The cardiomediastinal silhouette is normal. The lungs are clear. No evidence of pleural effusion or pneumothorax. IMPRESSION: No acute chest disease. Medications Administered ER Medications Given: NSS 1L bolus ECG Indication: tachycardia Rate (beats per minute): 111 Rhythm: sinus tachycardia Findings: no acute ischemic change Comparison ECG Date: from (April 03, 2021) Code Status & VTE Plan Code Status DNR/DNI VTE Prophylaxis Plan VTE Prophylaxis will be ordered: Yes PG Care Time/CCT Total # of Minutes Spent Total Time Spent with Patient: Total time spent is greater than 50% in coordination of care (as documented) at patient's floor/unit and/or counseling patient: Coding Level of Care Code 19136 Initial Inpt Care Lvl 3 Diagnoses Hypercalcemia E83.52 MIKHAIL (acute kidney injury) N17.9 Pernicious anemia D51.0 Type II diabetes mellitus E11.9 Macrocytic anemia D53.9 Metastatic breast cancer C50.919 Multiple sclerosis G35 Peripheral neuropathy G62.9 Hypothyroidism E03.9
[2021-04-03] MEDS ORDERED: CALCITONIN SALMON 400 UNITS/2 ML SQ STA (17:41)
--- NOTE | 2021-04-03 18:02 | XRay Report ---
XR chest 1V portable CLINICAL HISTORY: shortness of breath TECHNIQUE: Single frontal radiograph of the chest was obtained. Comparison: Comparison is made to chest 2 views 06/21/2018 FINDINGS: No lines and tubes are seen. The cardiomediastinal silhouette is normal. The lungs are clear. No evid ence of pleural effusion or pneumothorax. IMPRESSION: No acute chest disease. ACT 112: Negative or not required by law. Electronically signed by: Justin Virk M.D. 04/03/2021 6:01 PM
--- NOTE | 2021-04-03 18:40 | Emergency Department Note ---
Impression & Plan MIKHAIL (acute kidney injury), Hypercalcemia, Anemia ED Provider Note NAME: LUIS DYKES AGE: 75 SEX: F : 1945 ARRIVES VIA: Walk-In INFORMANT: Patient ED PROVIDER(S): Kurtis Madrid DO CHIEF COMPLAINT: Weakness abnormal labs HPI: Patient is a 75-year-old female who presents the ER referred in by PCP due to increased weakness and confusion. Weakness has been progressing today. Patient denies any headache or change in vision. No chest pain or shortness of breath. No nausea vomiting or diarrhea. She admits to diffuse weakness and she is significantly weaker when up moving around. No other exacerbating or remitting factors. She had blood work done today and had an elevated creatinine and elevated calcium and was referred and consequently secondary to this today. ROS: See above HPI for pertinent positives & negatives. A total of 10 systems reviewed and were otherwise negative. PAST MEDICAL HISTORY:See Below PAST SURGICAL HISTORY:See Below FAMILY HISTORY:See Below SOCIAL HISTORY:See Below HOME MEDICATIONS:See Below ALLERGIES:See Below VITALS:See Below PHYSICAL EXAMINATION: GENERAL: Sitting up in bed, alert, well appearing, well nourished, no distress, non-toxic EYE EXAM: normal conjunctiva. PERRL and EOM's grossly intact. OROPHARYNX: no exudate, no erythema, lips, buccal mucosa, and tongue normal and mucous membranes are moist NECK: supple, no nuchal rigidity, no adenopathy, non-tender LUNGS: Clear to auscultation. Normal chest wall mechanics HEART: no murmurs, S1 normal and S2 normal ABDOMEN: abdomen soft, non-tender, normo-active bowel sounds, no masses, no rebound or guarding. UPPER EXTREMITIES: upper extremities are grossly normal. LOWER EXTREMITIES: No pitting edema. NEURO EXAM: Normal sensorium, cranial nerves II-XII grossly intact, normal speech, no gross weakness of arms, no gross weakness of legs. MEDICAL DECISION MAKING: Patient is a 75-year-old female who presents ER for hypercalcemia as well as MIKHAIL. IV was established blood work was obtained. Labs show no significant eric kocytosis and mild anemia at 11. BMP with a creatinine of 2.2 up from baseline of 1. Calcium was elevated at 13.1. LFTs bilirubin was unremarkable. Covid was negative. She was initially seen in [facility]. We are able to give the patient IV fluids. I discussed with Dr. Nadeem Garcia for further evaluation and admission. He ordered calcitonin. Triage Nursing notes reviewed. Limited review of prior medical records performed Vital Signs: reviewed and remarkable for no significant abnormalities Differential diagnosis: Infection, dehydration, metabolic abnormality, hypo/hyperglycemia, electrolyte disturbance, anemia, hypoxia, cardiac sources, intracerebral event, toxicologic, neurologic, as well as other pathologies. ER treatment provided: See below Diagnostics interpreted by me: ECG: Sinus rhythm rate of 111 Normal axis No PVCs QTC 443 Laboratory studies: As stated above and show below. Imaging studies: Chest x-ray was unremarkable Consultation(s): Discussed with Dr. Nadeem Garcia for further evaluation and admission Procedures: none Critical Care: None Past Med/Surg History Medical History (Updated 04/03/21 @ 18:40 by Kurtis Madrid DO) MIKHAIL (acute kidney injury) Green's palsy Cloudy urine Community acquired pneumonia Hypoxia Lyme disease Multiple sclerosis Pneumonia Sepsis Surgical History S/P cholecystectomy S/P hysterectomy S/P mastectomy, bilateral Family History Mother Diabetes Father Cardiac disorder Hypertension Daughter Kidney stone Aunt Breast cancer Other Heart failure Denies family history of Ovarian cancer Prostate cancer Coronary heart disease Colorectal cancer Social History (Updated 03/20/21 @ 15:25 by Mariangel Beck LPN) Smoking Status: Never smoker Second Hand Exposure: No; Hx Alcohol Use: No Hx Substance Use: No Preferred Language: Slovenian Communication Ability: Effective Visual Impairment: No Limitations Hearing Ability: Normal Driveway Sealer Required: No Beliefs That Will Affect Care: None marital status: / Current Living Situation: Alone current occupational status: retired Feels Safe at Home: Yes Childhood Exposure to Second-Hand Smoke: Yes caffeine: No during the past year weight has: increased > 10 lbs Dental Care, Regularly: No Physical Activity Frequency: Daily Seatbelt Use: always Sunscreen Use: No Assistive Devices: Cane and Glasses Allergies Allergies Allergy/AdvReac Type Severity Reaction Status Date / Time adhesive Allergy Mild Unknown Verified 03/20/21 15:03 aspirin Allergy Mild Unknown Verified 03/20/21 15:03 aloe Allergy Unknown Unknown Verified 03/20/21 15:03 cephalexin Allergy Unknown Unknown Verified 03/20/21 15:03 latex Allergy Unknown RASH Verified 03/20/21 15:03 Home Meds Home Medications Medication Instructions Recorded Confirmed cholecalciferol (vitamin D3) 25 1,000 unit PO BID 04/26/18 03/06/21 mcg (1,000 unit) capsule (Vitamin D3) polyethylene glycol 3350 17 gram 17 g PO DAILY PRN 04/26/18 03/06/21 oral powder packet (Miralax) denosumab 120 mg/1.7 mL (70 mg/mL) 120 mg SQ .COMPLEX 02/28/20 03/06/21 subcutaneous solution (Xgeva) Previous Rx's Medication Instructions Recorded blood sugar diagnostic (PromocoTouch #100 ea 11/17/18 Ultra Blue Test Strip) blood-glucose meter (PromocoTouch #1 ea 11/17/18 Ultra2 Meter) lancets 33 gauge (OneTouch Delica #100 ea 11/18/18 Lancets) ferrous sulfate 325 mg (65 mg 325 mg PO 3XWK #100 tab 01/10/19 iron) tablet amitriptyline 100 mg tablet 100 mg PO HS #30 tab 11/12/20 glipizide 2.5 mg tablet, extended 2.5 mg PO QAM #90 tab 11/12/20 release 24 hr lorazepam 1 mg tablet 1 mg PO TID PRN #60 tab 12/05/20 levothyroxine 25 mcg tablet 25 mcg PO DAILY #90 tab 12/25/20 fentanyl 62.5 mcg/hour transdermal 50 mcg TRANSDERMAL Q72H #5 ea 03/06/21 patch hydrocodone 5 mg-acetaminophen 325 See Rx Instructions PO Q4H PRN #60 03/20/21 mg tablet tab sulfamethoxazole 800 1 tab PO BID 7 Days #14 tab 03/20/21 mg-trimethoprim 160 mg tablet Results & Data (ED) Vital Signs Vital Signs - 24 hr 04/03/21 16:23 Temperature 36.4 C L Temperature Source Temporal Artery Scan Respiratory Rate 20 Respiratory Effort / Characteristics Non-Labored Spontaneous Respiratory Depth Normal Respiratory Pattern Regular Blood Pressure 134/76 Blood Pressure Mean 95 Blood Pressure Position Sitting Pulse Oximetry 96 Oxygen Delivery Method Room Air Sepsis Recent Fever Within 48 Hours No Sepsis New/Unexplained Change in Mental Status No Sepsis Action Taken by Nursing No Action Required Laboratory Data Result diagrams: 04/03/21 16:35 04/03/21 16:35 Lab Results 04/03/21 04/03/21 04/03/21 Range/Units 16:35 16:35 18:10 WBC 6.13 (4.8-10.8) K/uL RBC 3.36 L (4.2-5.4) M/uL Hgb 11.3 L (12.0-16.0) g/dL Hct 36.0 L (37-47) % MCV 107.1 H (80-100) fL MCH 33.6 (25-34) pg MCHC 31.4 L (32-36) g/dL RDW Std Deviation 63.4 H (36.4-46.3) fL RDW Coeff of Gonzalez 16.2 H (11.5-14.5) % Plt Count 260 (130-400) K/uL MPV 9.6 (7.4-10.4) fL Immature Gran % (Auto) 0.3 % Neut % (Auto) 64.6 % Lymph % (Auto) 26.3 % Maries % (Auto) 5.9 % Eos % (Auto) 2.6 % Baso % (Auto) 0.3 % Neut # (Auto) 3.96 (1.4-6.5) K/uL Lymph # (Auto) 1.61 (1.2-3.4) K/uL Maries # (Auto) 0.36 (0.11-0.59) K/uL Eos # (Auto) 0.16 (0-0.5) K/uL Baso # (Auto) 0.02 (0-0.2) K/uL Immature Gran # (Auto) 0.02 (0.00-0.02) K/uL Sodium 139 (136-145) mmol/L Potassium 3.7 (3.5-5.1) mmol/L Chloride 103 (98-107) mmol/L Carbon Dioxide 31 (21-32) mmol/L Anion Gap 5.0 (3-11) BUN 25 H (7-18) mg/dl Creatinine 2.24 H (0.6-1.2) mg/dl Est Cr Clr Drug Dosing Not Reportable Est GFR ( Amer) 23.9 ml/min Est GFR (Non-Af Amer) 20.6 ml/min BUN/Creatinine Ratio 11.3 (10-20) Glucose 110 H (70-99) mg/dl Calcium 13.1 H* (8.5-10.1) mg/dl Total Bilirubin 0.3 (0.2-1) mg/dl AST 49 H (15-37) U/L ALT 42 (12-78) Alkaline Phosphatase 130 H (45-117) U/L Total Protein 8.1 (6.4-8.2) gm/dl Albumin 3.4 (3.4-5.0) gm/dl Globulin 4.7 H (2.5-4.0) gm/dl Albumin/Globulin Ratio 0.7 L (0.9-2) SARS-CoV-2, RNA, NAAT NEGATIVE (NEGATIVE) Imaging Data Radiologist's Impression: Chest X-Ray 04/03/21 17:20 XR chest 1V portable CLINICAL HISTORY: shortness of breath TECHNIQUE: Single frontal radiograph of the chest was obtained. Comparison: Comparison is made to chest 2 views 06/21/2018 FINDINGS: No lines and tubes are seen. The cardiomediastinal silhouette is normal. The lungs are clear. No evidence of pleural effusion or pneumothorax. IMPRESSION: No acute chest disease. ACT 112: Negative or not required by law. Electronically signed by: Justin Virk M.D. 04/03/2021 6:01 PM Discharge Plan Visit Data Chief Complaint: Abnormal Labs/Diagnostic Testing Stated Complaint: BLOODWORK RESULTED IN CONCERNS FOR KIDNEY ED Provider: Kurtis Madrid Discharge Problem: MIKHAIL (acute kidney injury), Hypercalcemia, Anemia Forms Stand Alone Forms: [facility] [employer] Prescriptions Prescriptions: No Action (DME) OneTouch Ultra Blue Test Strip strip See Dose Instructions .ROUTE .MEDSUPPLY Qty: 100 RF: 3 (DME) lancets [OneTouch Delica Lancets] 33 gauge misc See Dose Instructions .ROUTE .MEDSUPPLY Qty: 100 RF: 3 ferrous sulfate 325 mg (65 mg iron) tablet 325 mg PO 3XWK Qty: 100 RF: 3 glipizide 2.5 mg tablet extended release 24hr 2.5 mg PO QAM Qty: 90 RF: 3 amitriptyline 100 mg tablet 100 mg PO HS Qty: 30 RF: 5 lorazepam 1 mg tablet 1 mg PO TID PRN (Reason: insomnia) Qty: 60 RF: 2 levothyroxine 25 mcg tablet 25 mcg PO DAILY Qty: 90 RF: 1 (DME) blood-glucose meter [OneTouch Ultra2 Meter] misc See Dose Instructions .ROUTE .MEDSUPPLY Qty: 1 RF: 0 Xgeva 120 mg/1.7 mL (70 mg/mL) solution 120 mg SQ .COMPLEX RF: 0 fentanyl 62.5 mcg/hour patch 72 hour 50 mcg Transdermal Q72H Qty: 5 RF: 0 hydrocodone-acetaminophen 5-325 mg tablet See Rx Instructions PO Q4H PRN (Reason: Pain) Qty: 60 RF: 0 sulfamethoxazole-trimethoprim 800-160 mg tablet 1 tab PO BID 7 Days Qty: 14 RF: 0 polyethylene glycol 3350 [Miralax] 17 gram Powder In Packet 17 g PO DAILY PRN (Reason: Constipation) RF: 0 cholecalciferol (vitamin D3) [Vitamin D3] 1,000 unit Capsule 1,000 unit PO BID RF: 0 Referrals Referrals: Wendy Mendez CRNP [Primary Care Provider] - Discharge Problem: Anemia Qualifiers: Anemia type: unspecified type Qualified Code(s): D64.9 - Anemia, unspecified
[2021-04-03 18:58] LABS: Phosphorus 4.1 mg/dl (2.5-4.9)
[2021-04-03] MEDS ORDERED: ACETAMINOPHEN 325 MG TAB PO PRN (20:38)
[2021-04-03] MEDS ORDERED: POLYETHYLENE (MIRALAX) 17 GM PACK PO PRN (20:42)
[2021-04-03] MEDS ORDERED: FENTANYL TD SCH (20:45)
[2021-04-03] MEDS ORDERED: PAMIDRONATE DISODIUM 90 MG in SODIUM CHLORIDE 0.9% 1000ML 1,000 ML IV SCH (21:00)
[2021-04-03] MEDS: LORazepam 1 MG TAB PO PRN (22:19)
[2021-04-03] MEDS: SODIUM CHLORIDE 0.9% 1000ML 1,000 ML IV SCH (22:19)
[2021-04-03] MEDS: CLOBETASOL PROPIONATE 0.05% OINT 15 GM TUBE EXT SCH (22:19)
[2021-04-03] MEDS: AMITRIPTYLINE HCL 100 MG TAB PO SCH (22:22)
[2021-04-04] MEDS: CHECK fentaNYL PATCH PLACEMENT SCH ×3 (01:07→16:54)
[2021-04-04 02:07] LABS: Appearance Urine Clear (Clear); Bacteria Urine Automated Negative (Negative); Bilirubin Urine Negative (Negative); Blood Urine Negative (Negative); Cast Urine Automated 0 /lpf (0-5); Color Urine Yellow; Glucose Urine UA Negative (Negative); Ketones Urine Negative (Negative); Leukocyte Esterase Urine Trace (Negative); Nitrite Urine Negative (Negative); Protein Urine Negative (Negative); RBC Urine Automated 0-4 /hpf (0-4); Specific Gravity Urine 1.007 (1.000-1.030); Urobilinogen Urine Negative (Negative)
[2021-04-04] MEDS: LEVOTHYROXINE SODIUM 25 MCG TABLET PO SCH (05:14)
[2021-04-04] MEDS: HYDROCODONE/ACETAMOPHEN 5/325MG TAB PO PRN ×2 (05:14→20:08)
[2021-04-04] MEDS: SODIUM CHLORIDE 0.9% 1000ML 1,000 ML IV SCH ×2 (05:15→14:11)
[2021-04-04] MEDS ORDERED: GLUCOSE 10 TABS/TUBE PO PRN (07:11)
[2021-04-04] MEDS ORDERED: GLUCOSE 40% GEL 15 GM TUBE PO PRN (07:11)
[2021-04-04] MEDS ORDERED: DEXTROSE 50% 50 ML SYRINGE IV PRN (07:11)
[2021-04-04] MEDS ORDERED: GLUCAGON FOR INJ 1 MG VIAL SQ PRN (07:11)
[2021-04-04] MEDS ORDERED: CARBOHYDRATES FOR HYPOGLYCEMIA PO PRN (07:11)
[2021-04-04 07:43] LABS: Basophils # (auto) 0.02 K/uL (0-0.2); Basophils % (auto) 0.4 %; Eosinophils # (auto) 0.08 K/uL (0-0.5); Eosinophils % (auto) 1.5 %; Hematocrit (blood only) 32.1 % (37-47); Hemoglobin 10.1 g/dL (12.0-16.0); Immature Granulocytes # (auto) 0.02 K/uL (0.00-0.02); Immature Granulocytes % (auto) 0.4 %; Lymphocytes # (auto) 0.82 K/uL (1.2-3.4); Lymphocytes % (auto) 15.5 %; Mean Corpuscular Hemoglobin 32.9 pg (25-34); Mean Corpuscular Hgb Conc 31.5 g/dL (32-36); Mean Corpuscular Volume 104.6 fL (80-100); Mean Platelet Volume 9.6 fL (7.4-10.4); Monocytes # (auto) 0.25 K/uL (0.11-0.59); Monocytes % (auto) 4.7 %; Neutrophils # (auto) 4.09 K/uL (1.4-6.5); Neutrophils % (auto) 77.5 %; Platelet Count 231 K/uL (130-400); RDW Standard Deviation 61.3 fL (36.4-46.3); Red Blood Count 3.07 M/uL (4.2-5.4); White Blood Count 5.28 K/uL (4.8-10.8)
[2021-04-04 07:49] LABS: Estimated Average Glucose 131 mg/dl; Hemoglobin A1C 6.2 % (4.5-5.6)
[2021-04-04 08:21] LABS: BUN Creatinine Ratio 12.6 (10-20); Calcium 10.1 mg/dl (8.5-10.1); Creatinine Clr Calc Pharmacy 31.6 ml/min; Est GFR (African American) 31.6 ml/min; Est GFR (Non-African American) 27.2 ml/min; Potassium 3.3 mmol/L (3.5-5.1)
[2021-04-04] MEDS: PANTOprazole 40 MG TAB PO SCH (08:21)
[2021-04-04] MEDS: HEPARIN SOD 5,000 UNIT/0.5 ML VIAL SQ SCH ×2 (08:22→20:13)
[2021-04-04] MEDS: CLOBETASOL PROPIONATE 0.05% OINT 15 GM TUBE EXT SCH ×2 (08:23→20:10)
[2021-04-04] MEDS: INSULIN ASPART PER UNIT SC SCH ×4 (08:43→21:50)
[2021-04-04] MEDS ORDERED: NON-FORMULARY MEDICATION (Potassium 99 mg Tablet) PO SCH (09:00)
[2021-04-04] MEDS ORDERED: FERROUS SULFATE 325 MG TAB PO SCH (09:00)
[2021-04-04] MEDS ORDERED: POTASSIUM CHLORIDE CRTAB 20 MEQ TABCR PO STA (11:09)
--- NOTE | 2021-04-04 11:51 | Hospitalist Progress Note ---
Date of Service April 04, 2021 Assessment & Plan (1) Hypercalcemia: Plan: Most likely secondary to stage IV breast cancer, with mets to the bones Serum ca now wnl after calcitonin and pamidronate, and IV saline. Continue IV saline for now (2) MIKHAIL (acute kidney injury): Plan: Most likely secondary to hypercalcemia and dehydration. Some improvement in serum Cr after IV fluids (3) Pernicious anemia: Plan: B12 WNL folate level wnl (4) Type II diabetes mellitus: Plan: HbA1C 5.9 in August suggests overtreatment. HbA1C with AM labs. Stop glipizide Novolog correction factor only (5) Macrocytic anemia: Plan: Folate with AM labs as above (6) Metastatic breast cancer: Plan: Metastatic to bone and liver Planning to restart palliative chemotherapy for this per patient. Patient reports Xgeva on hold but I am unclear on the details of this - submental numbness noted on oncology notes. (7) Multiple sclerosis: Plan: Noted history of this. No current treatment listed. Consider as alternative diagnosis of symptoms if not improving with hypercalcemia treatment. (8) Peripheral neuropathy: Plan: Continue amitriptyline HS (9) Hypothyroidism: Plan: TSH WNL Continue levothyroxine 25 mcg PO daily Plan: VTE Prophylaxis - heparin SQ 5000 units BID Diet - regular Disposition - admit to PCU Admission and Anticipated Discharge Date Admission Date: April 03, 2021 Subjective patient seen and examined today, says she feels stronger Review of Systems Review of Systems: All systems reviewed are negative, apart from the ones contained in the history. Physical Exam Physical Exam: The patient is awake, alert and oriented 3, well developed and well nourished, normocephalic and atraumatic, lying in bed and in no acute distress. HEENT--PERRL, EOMI, mucous membranes and oropharynx mildly dry Neck--supple. No JVD. No bruits. Thyroid normal, trachea midline, no adenopathy. Heart--normal S1 and S2. No murmurs, rubs or gallops. Lungs--clear bilaterally, no respiratory distress, no accessory muscle use. Abdomen--normal bowel sounds and soft. Mild epigastric and left sided abdominal pain Extremities--no cyanosis or clubbing. No edema. Dermatologic--normal skin turgor, normal color, no abnormal lymph nodes, no rash. Neurologic--cranial nerves II through XII grossly intact. Rheumatologic--normal range of motion. Psychiatric--normal affect. Results & Data Results & Data ([facility]) Vital Signs (Past 12 Hours) Vital Signs Temp Pulse Resp BP Pulse Ox 04/04/21 07:31 97.9 F 105 H 18 143/79 H 93 04/04/21 03:02 98.2 F 110 H 18 160/94 H 93 Laboratory Results Laboratory Results - last 24 hr 04/03/21 04/03/21 04/03/21 16:35 16:35 18:10 WBC 6.13 RBC 3.36 L Hgb 11.3 L Hct 36.0 L MCV 107.1 H MCH 33.6 MCHC 31.4 L RDW Std Deviation 63.4 H RDW Coeff of Gonzalez 16.2 H Plt Count 260 MPV 9.6 Immature Gran % (Auto) 0.3 Neut % (Auto) 64.6 Lymph % (Auto) 26.3 [place] % (Auto) 5.9 Eos % (Auto) 2.6 Baso % (Auto) 0.3 Neut # (Auto) 3.96 Lymph # (Auto) 1.61 [place] # (Auto) 0.36 Eos # (Auto) 0.16 Baso # (Auto) 0.02 Immature Gran # (Auto) 0.02 Sodium 139 Potassium 3.7 Chloride 103 Carbon Dioxide 31 Anion Gap 5.0 BUN 25 H Creatinine 2.24 H Est Cr Clr Drug Dosing Not Reportable Est GFR ( Amer) 23.9 Est GFR (Non-Af Amer) 20.6 BUN/Creatinine Ratio 11.3 Glucose 110 H Estimat Average Glucose Hemoglobin A1c Calcium 13.1 H* Phosphorus 4.1 Total Bilirubin 0.3 AST 49 H ALT 42 Alkaline Phosphatase 130 H Total Protein 8.1 Total Protein (PEP) Albumin 3.4 Albumin (PEP) Globulin 4.7 H Albumin/Globulin Ratio 0.7 L [place]-5-Pbdyfiasn Smqwl-7-Iavrhrsvn Zbpq-9-Cigwiwpw Vnxk-9-Zpdmekis Gamma Globulins Monoclonal Peak 3 Ser Monoclonl Protein Ser Monoclonal Prot 2 PEP Interpretation 25-OH Vitamin D Total Vit D 1,25-Dihyd Total 1,25 Dihydroxy Vit D2 1,25 Dihydroxy Vit D3 Folate PTH Intact PTH Related Protein Urine Color Urine Appearance Urine pH Ur Specific [place] Urine Protein Urine Glucose (UA) Urine Ketones Urine Blood Urine Nitrite Urine Bilirubin Urine Urobilinogen Ur Leukocyte Esterase Urine WBC (Auto) Urine RBC (Auto) U Hyaline Cast (Auto) U Epithel Cells (Auto) Urine Bacteria (Auto) U Random Total Protein Ur Creatinine mg/dL Protein/Creatinin Ratio Urine Albumin (%) U Lribp-1-Jlguymcx (%) U Ramtk-0-Busgfqbc (%) U Beta Globulin (%) U Gamma Globulin (%) U Abnormal Prot Band 1 U Abnormal Prot Band 2 U Abnormal Prot Band 3 Urine PEP Interpret Tot [place]/Lambda Ratio [place] Light Chain Anal Lambda Light Chain Anal SARS-CoV-2, RNA, NAAT NEGATIVE 04/03/21 04/03/21 04/03/21 20:38 20:38 20:38 WBC RBC Hgb Hct MCV MCH MCHC RDW Std Deviation RDW Coeff of [place] Plt Count MPV Immature Gran % (Auto) Neut % (Auto) Lymph % (Auto) [place] % (Auto) Eos % (Auto) Baso % (Auto) Neut # (Auto) Lymph # (Auto) [place] # (Auto) Eos # (Auto) Baso # (Auto) Immature Gran # (Auto) Sodium Potassium Chloride Carbon Dioxide Anion Gap BUN Creatinine Est Cr Clr Drug Dosing Est GFR ( Amer) Est GFR (Non-Af Amer) BUN/Creatinine Ratio Glucose Estimat Average Glucose Hemoglobin A1c Calcium Phosphorus Total Bilirubin AST ALT Alkaline Phosphatase Total Protein Total Protein (PEP) Pending Albumin Albumin (PEP) Pending Globulin Albumin/Globulin Ratio Teyqt-8-Exzoaihts Pending Ywayb-3-Gpfoqnrnt Pending Rchn-0-[place]iv[place]ao Pending Wlzh-4-Ibzvjrqm Pending Gamma Globulins Pending Monoclonal Peak 3 Pending Ser Monoclonl Protein Pending Ser Monoclonal Prot 2 Pending PEP Interpretation Pending 25-OH Vitamin D Total Pending Vit D 1,25-Dihyd Total Pending 1,25 Dihydroxy Vit D2 Pending 1,25 Dihydroxy Vit D3 Pending Folate PTH Intact Pending PTH Related Protein Pending Urine Color Urine Appearance Urine pH Ur Specific [place] Urine Protein Urine Glucose (UA) Urine Ketones Urine Blood Urine Nitrite Urine Bilirubin Urine Urobilinogen Ur Leukocyte Esterase Urine WBC (Auto) Urine RBC (Auto) U Hyaline Cast (Auto) U Epithel Cells (Auto) Urine Bacteria (Auto) U Random Total Protein Ur Creatinine mg/dL Protein/Creatinin Ratio Urine Albumin (%) U Fltlw-3-Gkvlxoaz (%) U Lzxwi-9-Phdxltvq (%) U Beta Globulin (%) U Gamma Globulin (%) U Abnormal Prot Band 1 U Abnormal Prot Band 2 U Abnormal Prot Band 3 Urine PEP Interpret Tot [place]/Lambda Ratio Pending [place] Light Chain Anal Pending Lambda Light Chain Anal Pending SARS-CoV-2, RNA, NAAT 04/04/21 04/04/21 04/04/21 01:47 01:47 07:10 WBC 5.28 RBC 3.07 L Hgb 10.1 L Hct 32.1 L MCV 104.6 H MCH 32.9 MCHC 31.5 L RDW Std Deviation 61.3 H RDW Coeff of Gonzalez 16.0 H Plt Count 231 MPV 9.6 Immature Gran % (Auto) 0.4 Neut % (Auto) 77.5 Lymph % (Auto) 15.5 [place] % (Auto) 4.7 Eos % (Auto) 1.5 Baso % (Auto) 0.4 Neut # (Auto) 4.09 Lymph # (Auto) 0.82 L [place] # (Auto) 0.25 Eos # (Auto) 0.08 Baso # (Auto) 0.02 Immature Gran # (Auto) 0.02 Sodium Potassium Chloride Carbon Dioxide Anion Gap BUN Creatinine Est Cr Clr Drug Dosing Est GFR ( Amer) Est GFR (Non-Af Amer) BUN/Creatinine Ratio Glucose Estimat Average Glucose Hemoglobin A1c Calcium Phosphorus Total Bilirubin AST ALT Alkaline Phosphatase Total Protein Total Protein (PEP) Albumin Albumin (PEP) Globulin Albumin/Globulin Ratio Qdeiu-1-Gjocwqazx Uliwa-9-Cebswfpiy Ldem-7-Viztbqpd Xcwa-3-Qdddjitk Gamma Globulins Monoclonal Peak 3 Ser Monoclonl Protein Ser Monoclonal Prot 2 PEP Interpretation 25-OH Vitamin D Total Vit D 1,25-Dihyd Total 1,25 Dihydroxy Vit D2 1,25 Dihydroxy Vit D3 Folate PTH Intact PTH Related Protein Urine Color Yellow Urine Appearance Clear Urine pH 7.0 Ur Specific [place] 1.007 Urine Protein Negative Urine Glucose (UA) Negative Urine Ketones Negative Urine Blood Negative Urine Nitrite Negative Urine Bilirubin Negative Urine Urobilinogen Negative Ur Leukocyte Esterase Trace H Urine WBC (Auto) 1-5 Urine RBC (Auto) 0-4 U Hyaline Cast (Auto) 0 U Epithel Cells (Auto) 5-10 H Urine Bacteria (Auto) Negative U Random Total Protein Pending Ur Creatinine mg/dL Pending Protein/Creatinin Ratio Pending Urine Albumin (%) Pending U Dpmpw-3-Uqulzjuw (%) Pending U Lsoam-5-Nxscbhax (%) Pending U Beta Globulin (%) Pending U Gamma Globulin (%) Pending U Abnormal Prot Band 1 Pending U Abnormal Prot Band 2 Pending U Abnormal Prot Band 3 Pending Urine PEP Interpret Pending Tot [place]/Lambda Ratio [place] Light Chain Anal Lambda Light Chain Anal SARS-CoV-2, RNA, NAAT 04/04/21 04/04/21 04/04/21 07:10 07:15 07:15 WBC RBC Hgb Hct MCV MCH MCHC RDW Std Deviation RDW Coeff of [place] Plt Count MPV Immature Gran % (Auto) Neut % (Auto) Lymph % (Auto) [place] % (Auto) Eos % (Auto) Baso % (Auto) Neut # (Auto) Lymph # (Auto) [place] # (Auto) Eos # (Auto) Baso # (Auto) Immature Gran # (Auto) Sodium 141 Potassium 3.3 L Chloride 109 H Carbon Dioxide 26 Anion Gap 6.0 BUN 22 H Creatinine 1.78 H D Est Cr Clr Drug Dosing 31.6 Est GFR ( Amer) 31.6 Est GFR (Non-Af Amer) 27.2 BUN/Creatinine Ratio 12.6 Glucose 159 H Estimat Average Glucose 131 Hemoglobin A1c 6.2 H Calcium 10.1 D Phosphorus Total Bilirubin AST ALT Alkaline Phosphatase Total Protein Total Protein (PEP) Albumin Albumin (PEP) Globulin Albumin/Globulin Ratio Hawwp-1-Ttgbplogi Ivyxs-9-Nlfztnfaz Gyqh-0-Xgmccysc Gkee-0-Gqhgscdr Gamma Globulins Monoclonal Peak 3 Ser Monoclonl Protein Ser Monoclonal Prot 2 PEP Interpretation 25-OH Vitamin D Total Vit D 1,25-Dihyd Total 1,25 Dihydroxy Vit D2 1,25 Dihydroxy Vit D3 Folate 8.30 PTH Intact PTH Related Protein Urine Color Urine Appearance Urine pH Ur Specific [place] Urine Protein Urine Glucose (UA) Urine Ketones Urine Blood Urine Nitrite Urine Bilirubin Urine Urobilinogen Ur Leukocyte Esterase Urine WBC (Auto) Urine RBC (Auto) U Hyaline Cast (Auto) U Epithel Cells (Auto) Urine Bacteria (Auto) U Random Total Protein Ur Creatinine mg/dL Protein/Creatinin Ratio Urine Albumin (%) U Krqki-1-Mutmipjs (%) U Zzjpd-2-Bsorkhuz (%) U Beta Globulin (%) U Gamma Globulin (%) U Abnormal Prot Band 1 U Abnormal Prot Band 2 U Abnormal Prot Band 3 Urine PEP Interpret Tot [place]/Lambda Ratio [place] Light Chain Anal Lambda Light Chain Anal SARS-CoV-2, RNA, NAAT PG Care Time/CCT Total # of Minutes Spent Total Time Spent with Patient: Total time spent is greater than 50% in coordination of care (as documented) at patient's floor/unit and/or counseling patient: Coding Level of Care Code 87603 Subseq Hosp Care Lvl 2 Diagnoses Hypercalcemia E83.52 MIKHAIL (acute kidney injury) N17.9 Pernicious anemia D51.0 Type II diabetes mellitus E11.9 Macrocytic anemia D53.9 Metastatic breast cancer C50.919 Multiple sclerosis G35 Peripheral neuropathy G62.9 Hypothyroidism E03.9
[2021-04-04] MEDS ORDERED: ONDANSETRON INJ 2 MG/ML 2 ML VIAL IV PRN (14:03)
[2021-04-04] MEDS: AMITRIPTYLINE HCL 100 MG TAB PO SCH (20:11)
[2021-04-04] MEDS: LORazepam 1 MG TAB PO PRN (20:25)
--- NOTE | 2021-04-04 21:22 | Electrocardiogram Report ---
Test Reason : Blood Pressure : / mmHG Vent. Rate : 111 BPM Atrial Rate : 111 BPM P-R Int : 158 ms QRS Dur : 092 ms QT Int : 326 ms P-R-T Axes : 044 006 060 degrees QTc Int : 443 ms Poor data quality, interpretation may be adversely affected Sinus tachycardia Otherwise normal ECG When compared with ECG of 26-APR-2018 11:59, Criteria for Inferior infarct are no longer Present Confirmed by Jean Claude Burton ([id number]) on 04/04/2021 9:21:40 PM Referred By: Wendy Mendez Confirmed By:Jean Claude Burton
[2021-04-05] MEDS: CHECK fentaNYL PATCH PLACEMENT SCH ×2 (00:14→08:29)
[2021-04-05] MEDS: LEVOTHYROXINE SODIUM 25 MCG TABLET PO SCH (06:09)
[2021-04-05] MEDS: INSULIN ASPART PER UNIT SC SCH ×2 (08:28→12:27)
[2021-04-05] MEDS: HEPARIN SOD 5,000 UNIT/0.5 ML VIAL SQ SCH (08:31)
[2021-04-05] MEDS: CLOBETASOL PROPIONATE 0.05% OINT 15 GM TUBE EXT SCH (08:31)
[2021-04-05] MEDS: PANTOprazole 40 MG TAB PO SCH (08:32)
[2021-04-05 08:50] LABS: Calcium 9.4 mg/dl (8.5-10.1); Creatinine Clr Calc Pharmacy 31.2 ml/min; Est GFR (African American) 30.9 ml/min; Est GFR (Non-African American) 26.7 ml/min
--- NOTE | 2021-04-05 10:37 | Discharge Summary ---
Date of Service April 05, 2021 Admission HPI Per Admitting Provider Torrie Ponce is a 75 year old female with metastatic breast cancer who presents to the ER on the advice of her PCP due to abnormal labs tests with a creatinine 2.2 (baseline 1.4) and calcium 13.1. She reports significant worsening symptoms of confusion, lethargy, muscle weakness, constipation, loss of appetite over the last week. She denies any polyuria or polydipsia, anxiety or depression. No history of kidney stones. She has chronic lower back pain from skeletal metastatic disease from breast cancer but also reports this has been worse the last week and recently had to increase her Fentanyl patch. She was recently treated for a UTI with Bactrim on 03/20 for 7 days with symptoms of a strong odor urine and low abdominal pain. She reports her symptoms improved after antibiotics for this. She was referred to medicine for admission and ongoing management of hypercalcemia and acute kidney injury. She was treated with NSS 1 L bolus. Principal Diagnosis hypercalcemia Discharge Exam The patient is awake, alert and oriented 3, well developed and well nourished, normocephalic and atraumatic, lying in bed and in no acute distress. HEENT--PERRL, EOMI, mucous membranes and oropharynx mildly dry Neck--supple. No JVD. No bruits. Thyroid normal, trachea midline, no adenopathy. Heart--normal S1 and S2. No murmurs, rubs or gallops. Lungs--clear bilaterally, no respiratory distress, no accessory muscle use. Abdomen--normal bowel sounds and soft. Mild epigastric and left sided abdominal pain Extremities--no cyanosis or clubbing. No edema. Dermatologic--normal skin turgor, normal color, no abnormal lymph nodes, no rash. Neurologic--cranial nerves II through XII grossly intact. Rheumatologic--normal range of motion. Psychiatric--normal affect. Discharge Data Allergies Allergy/AdvReac Type Severity Reaction Status Date / Time adhesive Allergy Mild Unknown Verified 03/20/21 15:03 aspirin Allergy Mild Unknown Verified 03/20/21 15:03 aloe Allergy Unknown Unknown Verified 03/20/21 15:03 cephalexin Allergy Unknown Unknown Verified 03/20/21 15:03 latex Allergy Unknown RASH Verified 03/20/21 15:03 Consultations 04/03/21 17:12 ED Decision to Admit Stat Hospital Course (1) Hypercalcemia: Most likely secondary to stage IV breast cancer, with mets to the bones Serum ca now wnl after calcitonin and pamidronate, and IV saline. Continue IV saline for now (2) MIKHAIL (acute kidney injury): Most likely secondary to hypercalcemia and dehydration. Some improvement in serum Cr after IV fluids (3) Pernicious anemia: B12 WNL folate level wnl (4) Type II diabetes mellitus: HbA1C 5.9 in August suggests overtreatment. HbA1C with AM labs. Stop glipizide Novolog correction factor only (5) Macrocytic anemia: Folate with AM labs as above (6) Metastatic breast cancer: Metastatic to bone and liver Planning to restart palliative chemotherapy for this per patient. Patient reports Xgeva on hold but I am unclear on the details of this - submental numbness noted on oncology notes. (7) Multiple sclerosis: Noted history of this. No current treatment listed. Consider as alternative diagnosis of symptoms if not improving with hypercalcemia treatment. (8) Peripheral neuropathy: Continue amitriptyline HS (9) Hypothyroidism: TSH WNL Continue levothyroxine 25 mcg PO daily VTE Prophylaxis - heparin SQ 5000 units BID Diet - regular Disposition - admit to PCU Total Time Total Time Spent Total Time Spent (In Minutes): 35 Discharge Plan Discharge Items Patient Disposition: Home - Self-Care Reason For Visit: HYPERCALCEMIA Discharge Diagnosis: hypercalcemia- resolved Condition on Discharge: Fair Health Concerns: breast cancer Activity: Resume your previous activity Non-emergency contact: Primary Care Provider Call non-emergency contact if: you have any medication questions Follow-up/Referrals: Wendy Mendez CRNP [Primary Care Provider] - Diet: Regular Addtl Attending Provider Instructions: please make appointmebt to follow up with your Oncologist Pending Studies at Discharge: No Stand-Alone Forms: My [employer], Smoking Cessation Medications and DC Order Prescriptions: Continued (DME) OneTouch Ultra Blue Test Strip strip See Dose Instructions .ROUTE .MEDSUPPLY Qty: 100 RF: 3 (DME) lancets [OneTouch Delica Lancets] 33 gauge misc See Dose Instructions .ROUTE .MEDSUPPLY Qty: 100 RF: 3 ferrous sulfate 325 mg (65 mg iron) tablet 325 mg PO 3XWK Qty: 100 RF: 3 glipizide 2.5 mg tablet extended release 24hr 2.5 mg PO QAM Qty: 90 RF: 3 amitriptyline 100 mg tablet 100 mg PO HS Qty: 30 RF: 5 lorazepam 1 mg tablet 1 mg PO TID PRN (Reason: insomnia) Qty: 60 RF: 2 levothyroxine 25 mcg tablet 25 mcg PO DAILY Qty: 90 RF: 1 (DME) blood-glucose meter [OneTouch Ultra2 Meter] misc See Dose Instructions .ROUTE .MEDSUPPLY Qty: 1 RF: 0 Xgeva 120 mg/1.7 mL (70 mg/mL) solution 120 mg SQ .COMPLEX RF: 0 fentanyl 62.5 mcg/hour patch 72 hour 50 mcg Transdermal Q72H Qty: 5 RF: 0 hydrocodone-acetaminophen 5-325 mg tablet See Rx Instructions PO Q4H PRN (Reason: Pain) Qty: 60 RF: 0 polyethylene glycol 3350 [Miralax] 17 gram Powder In Packet 17 g PO DAILY PRN (Reason: Constipation) RF: 0 cholecalciferol (vitamin D3) [Vitamin D3] 1,000 unit Capsule 1,000 unit PO BID RF: 0 omeprazole 20 mg capsule,delayed release(DR/EC) 20 mg PO DAILY RF: 0 clobetasol 0.05 % ointment 1 applic TOPICAL BID RF: 0 Discontinued potassium 99 mg Tablet 99 mg PO DAILY RF: 0 Discharge Orders: Discharge Order (Routine); Ordered 04/05/21 Ordered By: Yoni Troy/Other Patient Handouts: High Blood Sugar (Hyperglycemia), Hypoglycemia (Low Blood Sugar), Managing Type 2 Diabetes Admission Data Admit Date/Time: 04/03/21 19:08 Attending Provider: Yoni Willingham Admit Provider: Nadeem Garcia Primary Care Provider: Wendy Mendez Other Providers: Frantz Tai ; Nadeem Garcia Coding Level of Care Code D/C DAY MANAGEMENT >30 MINS Diagnoses Hypercalcemia E83.52 MIKHAIL (acute kidney injury) N17.9 Pernicious anemia D51.0 Type II diabetes mellitus E11.9 Macrocytic anemia D53.9 Metastatic breast cancer C50.919 Multiple sclerosis G35 Peripheral neuropathy G62.9 Hypothyroidism E03.9
[2021-04-05 11:19] VITALS: BP 143/83; PULSE 108; TEMP 97.5; O2SAT 92
[2021-04-05] MEDS ORDERED: fentaNYL 50 MCG/HR TDSY TD SCH (16:00)
[2021-04-08 08:57] LABS: Creatinine Ur 23 mg/dL (20-275); Protein, Urine Random 6 mg/dL (5-24); Ur Protein/Creat Ratio mg/g 261 mg/g creat (21-161); Urine Abnormal Protein Band 1 DNR mg/dL (NONE DETECTED); Urine Abnormal Protein Band 2 DNR mg/dL (NONE DETECTED); Urine Abnormal Protein Band 3 DNR mg/dL (NONE DETECTED); Urine Protein/Creatinine Ratio 0.261 (0.021-0.161)
[2021-04-10 14:12] LABS: Albumin 3.6 g/dL (3.8-4.8); Alpha 1 Globulin 0.4 g/dL (0.2-0.3); Alpha 2 Globulin 0.9 g/dL (0.5-0.9); Beta-1-Globulin 0.4 g/dL (0.4-0.6); Beta-2-Globulin 0.5 g/dL (0.2-0.5); Gamma Globulin 1.6 g/dL (0.8-1.7); Kappa 437 mg/dL (176-443); Kappa Lambda Ratio 1.81 (1.29-2.55); Lambda 241 mg/dL (91-240); Monoclonal Protein Band 1 DNR g/dL (NONE DETECTED); Monoclonal Protein Band 2 DNR g/dL (NONE DETECTED); Monoclonal Protein Band 3 DNR g/dL (NONE DETECTED); PTH Related Protein 20 pg/mL (11-20); Total Protein 7.4 g/dL (6.1-8.1); Vitamin D 1,25 9 pg/mL (18-72); Vitamin D3,1,25 9 pg/mL
== END 2021-04-05 12:59 | disposition home or self-care (01) ==
LOC: ED 16:19 → 2S 19:08 → SUATTDRO 19:08 → INTOOBSV 19:08 → 2S 20:06